=== PATIENT | female | born 1940 | race Caucasian/White ===

== ENCOUNTER 2016-08-19 11:16 | Observation (INO) ==
--- NOTE | 2016-08-19 14:16 | Emergency Department Note ---
Disposition Clinical Impression: Squamous cell carcinoma lung Qualifiers: Laterality: right Qualified Code(s): C34.91 - Malignant neoplasm of unspecified part of right bronchus or lung Pulmonary embolism Qualifiers: Pulmonary embolism type: other Chronicity: acute Acute cor pulmonale presence: without acute cor pulmonale Qualified Code(s): I26.99 - Other pulmonary embolism without acute cor pulmonale Disposition: Admitted As Inpatient Condition: Good Referrals: Frank Barboza MD [Primary Care Provider] - Forms: ED Satisfaction Letter Time of Disposition: 16:38 General Adult HPI - General Chief complaint: ED Shortness of Breath/Dyspnea Stated complaint: Lung Ca, ATUL Time Seen by Provider: 08/19/16 14:15 Source: patient, family Limitations: no limitations Nursing Notes Reviewed: Yes Vital Signs Reviewed: Yes - History of Present Illness HPI Narrative: Two-day history of right-sided rib pain and pain on inspiration. Patient insists is not her "chest." Does have a history of lung cancer on the right side with radiation and chemotherapy finished in December. Has had a two- month history of having areas on her CT scan shows possible pneumonia. She has been on steroids as well as antibiotics with no resolution of this area. She states using oxygen has eased her pain. Pain Scale: 8 - Related Data Home Medications Medication Instructions Recorded Confirmed Albuterol Sulfate [Proair Hfa] 2 puff PO Q4H PRN 10/03/15 08/07/16 Alendronate Sodium [Fosamax] 70 mg PO QWEEK MDD thursday10/03/15 08/07/16 Calcium Carbonate [Calcium] 500 mg PO DAILY 10/03/15 08/07/16 Cholecalciferol (Vitamin D3) 5,000 unit PO DAILY 10/03/15 08/07/16 [Vitamin D3] Cyanocobalamin (Vitamin B-12) 1,000 mcg SL DAILY 10/03/15 08/07/16 [Vitamin B-12] Fluticasone/Salmeterol [Advair 1 puff IH BID 10/03/15 08/07/16 250-50 Diskus] Gluc/[place]-MSM#1/C/Maciej/Paulie/Bor 1 tab PO DAILY 10/03/15 08/07/16 [Osteo Bi-Flex Caplet] Oxygen 4 l NS HS 10/03/15 08/07/16 Simvastatin [Zocor] 20 mg PO HS 10/03/15 08/07/16 Tiotropium [Spiriva] 1 puff IH DAILY 10/03/15 08/07/16 Torsemide [Demadex] 10 - 20 mg PO DAILY 10/03/15 08/07/16 MethylPREDNISolone [Medrol] 24 mg PO DAILY 08/07/16 08/07/16 Previous Rx's Medication Instructions Recorded HYDROcodone/Acet 5/325 mg [[place] 1 tab PO TID PRN #90 tab 05/15/16 5-325 mg] Pantoprazole Sodium [Protonix] 40 mg PO DAILY #30 granpkt. 08/05/16 Omeprazole [PriLOSEC] 40 mg PO DAILY #30 cap 08/07/16 Gabapentin [Neurontin] 300 mg PO HS #30 capsule 08/14/16 Zolpidem [Ambien] 10 mg PO HS #30 tablet 08/14/16 Allergies Allergy/AdvReac Type Severity Reaction Status Date / Time ampicillin Allergy Hives Verified 07/31/16 11:36 caffeine [From Anacin] Allergy Nausea Verified 07/31/16 11:36 diltiazem [From Cardizem] Allergy Hives Verified 07/31/16 11:36 acetaminophen [From Percocet] AdvReac Nausea Verified 08/19/16 11:37 aspirin AdvReac Nausea Verified 07/31/16 11:36 Oxycodone [From Percocet] AdvReac Nausea Verified 08/19/16 11:37 All systems ED: reviewed and negative except as stated. Constitutional: Denies: fever, chills ENT ED: Denies: throat pain, congestion Cardiovascular: Reports: chest pain (Right sided rib pain on deep inspiration.) Respiratory: Reports: cough (For several months.). Denies: dyspnea, sputum production Gastrointestinal: Denies: abdominal pain, nausea, vomiting, diarrhea Musculoskeletal: Denies: back pain, neck pain Integumentary: Denies: rash, abrasion Neurological: Denies: headache, weakness Past Medical History - Past Medical History Attestation: Yes The following information was validated with the patient. Medical history: Reports: arthritis, asthma, COPD, DVT, glaucoma, hyperlipidemia , hypertension Surgical history: Reports: appendectomy, hysterectomy, orthopedic, other Psychiatric history: Reports: no psych history - Social History Smoking Status: Former smoker Smokeless Tobacco Status: No Alcohol use: Reports: none Drug use: Reports: none Physical Exam - General Limitations: no limitations General appearance: alert, in no apparent distress - Head Head exam: atraumatic, normocephalic - Eye Eye exam: Present: normal appearance, PERRL, EOMI - ENT ENT exam: normal exam, normal oropharynx, mucous membranes moist - Neck Neck exam: Present: normal inspection, full ROM - Chest Chest inspection: Present: normal inspection, symmetric chest wall rise, tenderness (To palpation of right chest wall.) - Respiratory Respiratory exam: Present: normal lung sounds bilaterally. Absent: respiratory distress, wheezes - Cardiovascular Cardiovascular exam: Present: regular rate, normal rhythm, normal heart sounds - Abdominal Exam Abdominal exam: Present: soft, Non-Tender, normal bowel sounds - Extremities Exam Extremities exam: Present: normal inspection, full ROM, normal capillary refill. Absent: tenderness, pedal edema, calf tenderness - Back Exam Back exam: Present: normal inspection, full ROM. Absent: tenderness - Neurological Exam Neurological exam: Present: alert, oriented X3 - Psychiatric Psychiatric exam: Present: normal affect, normal mood - Skin Skin exam: Present: warm, dry, intact, normal color. Absent: rash, cyanosis, diaphoresis Course Course Narrative: Well-appearing female patient being sent from the cancer center for evaluation of her right-sided chest pain. Patient does have a history of right-sided lung cancer that she has received chemotherapy and radiation for. Her last dosing of this was in December. Patient has had a 2 or 3 month history of right- sided chest pain. She has been monitored several times by radiology for this. She has had several CT days of her chest over the past 2 months. She has been treated for pneumonia as well as been on prednisone. She has not had a outpatient pulmonary workup. Dr. Cuevas is sending her over here for admission and pulmonary workup. Patient is complaining of a right sided chest wall pain. She states it is worse on inspiration. It is reproducible to light palpation of her right rib area. She denies a cough or fever. Her lung sounds are clear on exam. Her heart tones are normal. Her abdomen is soft and nontender on palpation. Her bowel sounds are normal. I do not appreciate any swelling to any of her extremities. There are no cords in her calves. Patient does state that she has a history of PE several years ago in the 1973 timeframe. She denies being on any type of anticoagulation. I am concerned with her pleuritic chest pain as well as her history of cancer that she could possibly have a PE. We will CTA patient's chest while she is here and admit patient for pulmonary workup. Her chest x-ray shows a developing mass on her right hilum as well as a right-sided pleural effusion and increasing in the mass which was previously thought to be pneumonia in her right lower lobe. - Reevaluation(s) Reevaluation #1: Patient has a right lower lobe PE. We will start patient on Lovenox per Dr Reno's request and admit her to the hospital. Time: 16:38 - Consultations Consultation #1: I spoke with Dr. Cuevas on the phone. She advised that she sent the patient over for evaluation due to this recurrent pneumonia. She states the patient has complained of a cough and this right-sided chest pain for 2 months. She states that she did intermittently get better but then has since stated her pain is back. Requesting patient be admitted and a pulmonary consult be done. Consultation #2: I spoke Dr Reno on the phone is is requesting that we start the Pt on lovenox down here and admit her to the hospital. He states that they will attempt to change her anticoagulation on the floor. Time: 16:35 Consultation #3: Dr Camara accepted Pt in stable condition. I have made her aware of the request by the cancer doctor to have the patient on 1 mg/kg Lovenox every 12 hours. Time: 16:59 Vital Signs Temperature 97.5 F L 08/19/16 11:32 Pulse Rate 87 08/19/16 11:32 Respiratory Rate 18 08/19/16 11:32 Blood Pressure 131/80 08/19/16 11:32 O2 Sat by Pulse Oximetry 95 08/19/16 11:32 Temperature 97.5 F L 08/19/16 11:32 Pulse Rate 86 08/19/16 16:48 Respiratory Rate 18 08/19/16 16:48 Blood Pressure 125/70 08/19/16 16:48 O2 Sat by Pulse Oximetry 93 08/19/16 16:48 Oxygen Delivery Oxygen Delivery Room Air Attestation Statement - Attestation Attestation: I examined this patient and my medical decision-making was reviewed with the PLEATING SUPERVISOR/PA/Advanced Practice Nurse/Resident Physician. I agree with the documented findings, disposition and treatment plan as described except to the extent set forth below.
[2016-08-19] MEDS ORDERED: *HR* HYDROmorphone (PF) 1 MG/ML SYRINGE IVP ONE (15:14)
[2016-08-19] MEDS ORDERED: 0.9 % Sodium Chloride 500 ML IVC ONE (15:26)
[2016-08-19] MEDS ORDERED: *HR* Enoxaparin 30 MG/0.3 ML SYRINGE SQ ONE (16:39)
[2016-08-19] MEDS ORDERED: *HR* Enoxaparin 80 MG/0.8 ML SYRINGE SQ ONE (17:15)
[2016-08-19] MEDS ORDERED: Naloxone 0.4 MG/ML INJ IVP PRN (19:45)
[2016-08-19] MEDS ORDERED: *HR* HYDROcodone/Acet 5/325 mg TABLET PO PRN (20:40)
--- NOTE | 2016-08-19 20:40 | Internal Med History&Physical ---
Date of Encounter: 08/19/16 Time of Encounter: 20:39 Assessment and Plan (1) Pulmonary embolism Current visit: Yes Status: Acute with right side chest pain for 2 months prior to admisison.. Chest CTA with acute RLL pulmonary embolism. ED Discussed with Oncology and Lovenox started. Oncology consulted. Echo pending to assess for RV strain Qualifiers: Pulmonary embolism type: other Chronicity: acute Acute cor pulmonale presence: without acute cor pulmonale Qualified Code(s): I26.99 - Other pulmonary embolism without acute cor pulmonale (2) Squamous cell carcinoma lung Current visit: Yes Status: Chronic per hx. Last chemo 12/2015. Chest CTA with interval progression of mass resulting in bronchus obstruction. No respiratory distress on exam. Cont monitor. Oncology consulted Qualifiers: Laterality: right Qualified Code(s): C34.91 - Malignant neoplasm of unspecified part of right bronchus or lung (3) Thoracic aortic aneurysm Current visit: Yes Status: Acute per hx. Chest CTA with stable dilation of ascending thoracic aneurysm. No dissection. Can follow-up outpatient with continued surveillance Qualifiers: Presence of rupture: without rupture Qualified Code(s): I71.2 - Thoracic aortic aneurysm, without rupture (4) Diabetes Current visit: Yes Status: Acute per hx. Hold home oral hypoglycemics. SSI while inpatient. Monitor blood sugars and titrate PRN Qualifiers: Diabetes mellitus type: type 2 Diabetes mellitus complication status: without complication Diabetes mellitus intermediate insulin use: without long term care social worker use Qualified Code(s): E11.9 - Type 2 diabetes mellitus without complications (5) COPD (chronic obstructive pulmonary disease) Current visit: Yes Status: Acute per hx. Wears home O2. No evidence of exacerbation on exam. Cont home inhalers Qualifiers: COPD type: unspecified COPD Qualified Code(s): J44.9 - Chronic obstructive pulmonary disease, unspecified (6) Full code status Current visit: Yes Status: Acute Full code. Verified on admission (7) DVT prophylaxis Current visit: Yes Status: Acute Lovenox Internal Medicine - H&P: HPI Chief complaint: right side chest pain Plans for Post Hospital Care: Home History of present illness: Ms. Paul is a 76 year old female with PMH lung cancer, COPD and diabetes who presented to [facility] on 08/19/2016 from Oncology office for evaluation of right side chest pain. She was found to have a pulmonary embolism and was admitted for anticoagulation and Oncology evaluation. Information obtained from chart review patient patient report. Patient reports persistent right side chest pain for 2 months prior to admission. Pain is dull, rates 5/10, palpation and inspiration makes worse, pain medicine helps reliev a little. She also reports SOB but says that is chronic and at baseline. No ABD pain, no N/V/D Past Med Surg Social Fam HX - Past Medical History Medical history: arthritis, asthma, COPD, DVT, glaucoma, hyperlipidemia, hypertension Psychiatric history: no psych history - Past Surgical History Surgical History: appendectomy, hysterectomy, orthopedic, other - Social History Smoking Status: Former smoker Smokeless Tobacco Status: No Alcohol use: none Drug use: none - Additional Family History Additional family history: reviewed and non-contributory Internal Medicine - H&P: Meds Albuterol Sulfate [Proair Hfa] 2 puff PO Q4H PRN 10/03/15 [History] Alendronate Sodium [Fosamax] 70 mg PO QWEEK MDD thursday10/03/15 [History] Calcium Carbonate [Calcium] 500 mg PO DAILY 10/03/15 [History] Cholecalciferol (Vitamin D3) [Vitamin D3] 5,000 unit PO DAILY 10/03/15 [History] Cyanocobalamin (Vitamin B-12) [Vitamin B-12] 1,000 mcg SL DAILY 10/03/15 [ History] Fluticasone/Salmeterol [Advair 250-50 Diskus] 1 puff IH BID 10/03/15 [History] Gluc/[place]-MSM#1/C/Maciej/Paulie/Bor [Osteo Bi-Flex Caplet] 1 tab PO DAILY 10/03/15 [ History] Oxygen 4 l NS HS 10/03/15 [History] Simvastatin [Zocor] 20 mg PO HS 10/03/15 [History] Tiotropium [Spiriva] 1 puff IH DAILY 10/03/15 [History] Torsemide [Demadex] 10 - 20 mg PO DAILY 10/03/15 [History] HYDROcodone/Acet 5/325 mg [[place] 5-325 mg] 1 tab PO TID PRN #90 tab 05/15/16 [Rx ] Omeprazole [PriLOSEC] 40 mg PO DAILY #30 cap 08/07/16 [Rx] Gabapentin [Neurontin] 300 mg PO HS #30 capsule 08/14/16 [Rx] Zolpidem [Ambien] 10 mg PO HS #30 tablet 08/14/16 [Rx] Allergies ampicillin Allergy (Verified 07/31/16 11:36) Hives caffeine [From Anacin] Allergy (Verified 07/31/16 11:36) Nausea diltiazem [From Cardizem] Allergy (Verified 07/31/16 11:36) Hives acetaminophen [From Percocet] Adverse Reaction (Verified 08/19/16 11:37) Nausea aspirin Adverse Reaction (Verified 07/31/16 11:36) Nausea Oxycodone [From Percocet] Adverse Reaction (Verified 08/19/16 11:37) Nausea All Systems PM: A 10-system review of systems was performed and is negative for pertinent findings except as documented above in the HPI. - Constitutional Constitutional: no chills, no fever(s), no night sweats - EENT Eyes: no change in vision, no discharge, no pain, no photophobia Ears: no ear discharge, no ear pain, no tinnitus Nose, mouth and throat: no dysphagia, no nasal discharge, no neck pain, no sore throat - Cardiovascular Cardiovascular ROS IM: chest pain, dyspnea on exertion, no diaphoresis, no dyspnea, no lightheadedness, no palpitations, no syncope - Respiratory Respiratory: no cough, no dyspnea, no wheezing, no excessive phlegm production - Gastrointestinal Gastrointestinal: no abdominal pain, no diarrhea, no hematemesis, no hematochezia, no melena, no nausea, no vomiting - Genitourinary Genitourinary: no change in urinary stream, no dysuria, no flank pain, no hematuria - Musculoskeletal Musculoskeletal ROS IM: no numbness, no tingling - Integumentary Integumentary IM: no rash, no unusual bruising - Neurological Neurological ROS: no confusion, no convulsions, no focal weakness, no numbness, no tingling, no tremor(s) - Hematologic/Lymphatic Hematologic/Lymphatic: no easy bruising - Constitutional Vitals: Temp Pulse Resp BP Pulse Ox 97.7 F 89 16 146/76 100 08/19/16 18:39 08/19/16 18:39 08/19/16 18:39 08/19/16 18:39 08/19/16 18:56 General appearance: Present: A&O X 3, no acute distress - Head Head exam: Present: atraumatic, normocephalic - Eye Eye exam: Present: PERRL, conjuntiva pink, sclera anicteric Pupils: Present: PERRL - Neck Neck exam general surgery: Present: supple, trachea midline. Absent: lymphadenopathy - Respiratory Respiratory exam: Present: decreased breath sounds, CTAB. Absent: accessory muscle use, rales, rhonchi, wheezes Additional comments: CTA with diminished RLL - Cardiovascular Cardiovascular exam: Present: RRR, +S1, +S2. Absent: diastolic murmur, gallop, rubs, systolic murmur - GI/Abdominal GI/Abdominal exam: Present: normal bowel sounds, soft, no peritoneal signs. Absent: distended, tenderness - Extremities Exam Extremities exam: Present: warm, radial pulses palpable and symetrical. Absent : calf tenderness, cyanotic, pedal edema - Neurological Exam Neurological exam: Present: CN II-XII intact, oriented X3, no focal deficits. Absent: pronater drift, facial droop, speech deficit - Skin Skin exam: Present: dry, intact Internal Med - H&P Results - Labs CBC & Chem 7: 08/19/16 20:42 08/19/16 20:42
[2016-08-19] MEDS ORDERED: D5% in Water 1,000 ML IVC PRN (20:43)
[2016-08-19] MEDS ORDERED: Dextrose Gel 15 GM PO PRN ×2 (20:43)
[2016-08-19] MEDS ORDERED: *HR* Morphine 2 MG/ML SYRINGE IVP PRN ×2 (20:43→20:59)
[2016-08-19] MEDS ORDERED: *HR* Dextrose 50 % in Water (Syg) 50 ML SYRINGE IVP PRN (20:43)
[2016-08-19 20:53] LABS: Basophils % 0.1 %; Eosinophils % 0.1 %; Immature Granulocytes % 0.5 % (0-4); Lymphocytes # 1.2 K/mcL (0.6-4.6); Lymphocytes % 12.3 %; Mean Corpuscular HGB Conc 31.6 g/dL (31.6-35.5); Mean Corpuscular Hemoglobin 27.1 pg (28.0-33.3); Mean Corpuscular Volume 85.8 fL (83.0-100.0); Mean Platelet Volume 9.3 fL (9.4-12.4); Monocytes # 0.9 K/mcL (0.0-1.3); Monocytes % 9.5 %; Neutrophils # 7.4 K/mcL (1.6-8.9); Platelet Count 184 K/mcL (140-400); Red Blood Count 4.43 M/mcL (3.82-4.97); Red Cell Distribution Width 17.2 % (11.5-14.5); Segmented Neutrophils % 77.5 %
[2016-08-19] MEDS ORDERED: Insulin LISPRO 300 UNITS/3 ML VIAL SQ SCH (21:00)
[2016-08-19 21:05] LABS: BUN/Creatinine Ratio 27 (6-26); Blood Urea Nitrogen 25 mg/dL (7-20); Carbon Dioxide 29 mEq/L (19-29); Chloride 100 mEq/L (98-109); Glucose 118 mg/dL (70-99); Osmolality,Calculated 289 (280-300); Sodium 137 mEq/L (136-145); eGFR For African Americans > 60 (> 60); eGFR For Non-African Americans > 60 (> 60)
[2016-08-19] MEDS: Gabapentin 300 MG CAPSULE PO SCH (21:44)
[2016-08-19] MEDS ORDERED: Budesonide/Formoterol 80/4.5 MDI IH SCH (22:00)
[2016-08-20] MEDS: *HR* Enoxaparin 80 MG/0.8 ML SYRINGE SQ SCH ×2 (05:34→18:30)
[2016-08-20 07:29] LABS: BUN/Creatinine Ratio 30 (6-26); Blood Urea Nitrogen 26 mg/dL (7-20); Calcium 9.2 mg/dL (8.6-10.8); Carbon Dioxide 27 mEq/L (19-29); Chloride 102 mEq/L (98-109); Glucose 95 mg/dL (70-99); Osmolality,Calculated 291 (280-300); Potassium 3.9 mEq/L (3.5-4.5); Sodium 138 mEq/L (136-145); eGFR For African Americans > 60 (> 60); eGFR For Non-African Americans > 60 (> 60)
[2016-08-20] MEDS ORDERED: Insulin LISPRO 300 UNITS/3 ML VIAL SQ SCH (07:30)
[2016-08-20] MEDS ORDERED: Albuterol 2.5 MG/3 ML NEBULIZER IH PRN (07:47)
[2016-08-20] MEDS ORDERED: *HR* Morphine 2 MG/ML SYRINGE IVP PRN (07:49)
[2016-08-20 07:52] LABS: Basophils % 0.2 %; Eosinophils % 0.3 %; Hematocrit 37.2 % (35.3-44.9); Hemoglobin 11.6 g/dL (11.5-15.4); Immature Granulocytes % 0.9 % (0-4); Lymphocytes # 0.8 K/mcL (0.6-4.6); Lymphocytes % 13.2 %; Mean Corpuscular HGB Conc 31.2 g/dL (31.6-35.5); Mean Corpuscular Hemoglobin 27.1 pg (28.0-33.3); Mean Corpuscular Volume 86.9 fL (83.0-100.0); Monocytes # 0.7 K/mcL (0.0-1.3); Monocytes % 11.4 %; Neutrophils # 4.7 K/mcL (1.6-8.9); Platelet Count 175 K/mcL (140-400); Red Blood Count 4.28 M/mcL (3.82-4.97); Red Cell Distribution Width 17.2 % (11.5-14.5)
[2016-08-20] MEDS: *HR* HYDROcodone/Acet 5/325 mg TABLET PO PRN ×2 (10:03→21:55)
[2016-08-20] MEDS: Torsemide 20 MG TABLET PO SCH (10:03)
[2016-08-20] MEDS: Cyanocobalamin (B-12) 1,000 MCG TABLET PO SCH (10:05)
[2016-08-20] MEDS: Tiotropium 18 MCG inhalation IH SCH (10:50)
[2016-08-20] MEDS: Budesonide/Formoterol 80/4.5 MDI IH SCH ×2 (10:50→20:45)
--- NOTE | 2016-08-20 12:31 | ECHO - Doppler Report ---
Echocardiogram Name: Janet Paul Date of Study: 08/20/2016 Date: 1940 Ht: 62.0 in Medical Record#: [id number] Age: 76 Wt: 156.0 lb Gender: Female BSA: 1.72 Order #: [id number] Location: [facility] Room #: 2A12 Reading Physician: Hermelindo Lopez DO, MEKA VALENTIN Trimming Caser: Joshua Faith RN Ordering Physician: Becki Morton CNP Primary Physician: Frank Barboza MD Indications: RV Strain Impressions: LVEF 55-60%. Normal LV chamber size, wall thickness, and function. Mild left ventricular diastolic dysfunction. Normal right ventricular structure and function. Mild aortic regurgitation. No evidence of pulmonary hypertension. Left Ventricular Wall Motion: Rest Echo Findings All wall segments showed normal motion. Findings: Study Quality * Technically adequate exam. ECG Findings * Normal sinus rhythm. Left Ventricle * LVEF 55-60%. * Normal LV chamber size, wall thickness, and function. * Mild left ventricular diastolic dysfunction. Right Ventricle * Normal right ventricular structure and function. Left Atrium * Mildly dilated left atrium. Right Atrium * Normal right atrial size. Interatrial Septum * Interatrial septum not well evaluated. Aortic Valve * Trileaflet aortic valve. * No aortic stenosis. * Mild aortic regurgitation. Mitral Valve * Normal mitral valve structure and function. * No mitral regurgitation. * No mitral stenosis. Tricuspid Valve * Normal tricuspid valve structure and function. * Trace tricuspid regurgitation. * No evidence of pulmonary hypertension. Pulmonic Valve * Pulmonic valve is not well visualized. Aorta * Normally sized aortic root. Pericardium * The pericardium appears normal. IVC * Normal IVC dimensions and inspiratory collapse. Pulmonary Artery * Normal visualized portions of the main pulmonary artery. History Hypercholesteremia Years 60 Packs 1 Family History of CAD 10/04/2014 a Previous Echo was performed. Measurements: BP: 101/ 70 2D Normal Values RVIDd: 2.90 cm <2.7 cm IVSd: 1.10 cm 0.6 - 1.0 cm LVIDd: 4.20 cm 3.7 - 5.6 cm LVPWd: 1.10 cm 0.6 - 1.1 cm LVIDs: 2.70 cm 1.5 - 3.6 cm LA: 2.30 cm 2.0 - 4.0cm %FS: 35.70 cm >25 % LVOT Diam: 2.00 cm LA volume: 49 Mitral Valve Peak E:.81 m/sec Peak A:.95 m/sec E/A Ratio:0.8 Peak E' Lat Vargas:9.36 cm/s Peak E' Med Vargas:9.65 cm/s E/E' Lat Ratio:8.6 E/E' Med Ratio:8.4 Aortic Valve AI pressure Half-time: 394.00 msec Tricuspid Valve TV Regurg Peak Grad: 15.00mmHg TV Regurg Peak Vargas: 1.95m/sec Updated by Hermelindo Lopez DO, FACAdele, MEKA, LEONOR on 08/20/2016 12:27:11 PM electronically signed on 08/20/2016 12:27:47 PM with status of Final Wall Motion [place]: 1=Normal, 2=Hypokinesis, 3=Akinesis, 4=Dyskinesis, 5=Aneurysmal, 6=Hyperkinetic, X=Not Visualized (Blank)=Missing
--- NOTE | 2016-08-20 14:56 | Internal Med Progress Note ---
Date of Encounter: 08/20/16 Time of Encounter: 09:00 - Assessment and plan (1) Pulmonary embolism Current Visit: Yes Status: Acute Assessment and plan: On therapeuic dose of lovenox, echo ordered to assess right heart strain, echo report noted, unremarkable, will continue with lovenox and follow recommendations from hem onc for further management. D/W patient. Continue supplemental oxygen. Qualifiers: Pulmonary embolism type: other Chronicity: acute Acute cor pulmonale presence: without acute cor pulmonale Qualified Code(s): I26.99 - Other pulmonary embolism without acute cor pulmonale (2) Squamous cell carcinoma lung Current Visit: Yes Status: Chronic Assessment and plan: Will follow onc recommendations. Qualifiers: Laterality: right Qualified Code(s): C34.91 - Malignant neoplasm of unspecified part of right bronchus or lung (3) Diabetes Current Visit: Yes Status: Acute Qualifiers: Diabetes mellitus type: type 2 Diabetes mellitus complication status: without complication Diabetes mellitus extermination supervisor insulin use: without intermediate use Qualified Code(s): E11.9 - Type 2 diabetes mellitus without complications (4) COPD (chronic obstructive pulmonary disease) Current Visit: Yes Status: Acute Assessment and plan: Not in exacerbation. Qualifiers: COPD type: unspecified COPD Qualified Code(s): J44.9 - Chronic obstructive pulmonary disease, unspecified (5) DVT prophylaxis Current Visit: Yes Status: Acute - Subjective Interval history: seen and examiend, uses oxygen at home, no chest pain. - Constitutional Vitals: Temp Pulse Resp BP Pulse Ox 97.5 F L 76 16 101/63 98 08/20/16 11:01 08/20/16 11:01 08/20/16 11:01 08/20/16 11:01 08/20/16 11:01 General appearance: Present: cooperative, A&O X 3, no acute distress - Head Head exam: Present: atraumatic, normocephalic - Eye Eye exam: Present: PERRL, conjuntiva pink, sclera anicteric Pupils: Present: PERRL - Neck Neck exam general surgery: Present: supple, trachea midline. Absent: lymphadenopathy - Respiratory Respiratory exam: Present: CTAB. Absent: accessory muscle use, rales, rhonchi, wheezes - Cardiovascular Cardiovascular exam: Present: RRR, +S1, +S2. Absent: diastolic murmur, gallop, rubs, systolic murmur - GI/Abdominal GI/Abdominal exam: Present: normal bowel sounds, soft, no peritoneal signs. Absent: distended, tenderness - Extremities Exam Extremities exam: Present: warm, radial pulses palpable and symetrical. Absent : calf tenderness, cyanotic, pedal edema - Neurological Exam Neurological exam: Present: CN II-XII intact, oriented X3, no focal deficits. Absent: pronater drift, facial droop, speech deficit - Skin Skin exam: Present: dry, intact Internal Medicine: Result - Labs CBC & Chem 7: 08/20/16 07:12 08/20/16 07:12 Labs: Short CBC 08/19/16 08/20/16 Range/Units 20:42 07:12 WBC 9.5 6.4 (4.3-11.1) K/mcL Hgb 12.0 11.6 (11.5-15.4) g/dL Hct 38.0 37.2 (35.3-44.9) % Plt Count 184 175 (140-400) K/mcL Neutrophils # 7.4 4.7 (1.6-8.9) K/mcL BMP 08/19/16 08/20/16 20:42 07:12 Sodium 137 138 Potassium 4.0 3.9 Chloride 100 102 Carbon Dioxide 29 27 BUN 25 H 26 H Creatinine 0.91 0.86 Glucose 118 H 95 Calcium 9.0 9.2 Consult Discharge Plan - Plan Referrals: Frank Barboza MD [Primary Care Provider] - 08/26/16 3:00 pm ()
--- NOTE | 2016-08-20 15:09 | Oncology Inp Consult Note ---
Date of Encounter: 08/20/16 Time of Encounter: 18:13 Assessment and Plan (1) Acute pulmonary embolism Status: Acute Assessment and plan: Most likely secondary to lung cancer. If cancer is not in remission, she will require life long anticoagulation. Hence there is no utility to a hypercoaguable work up. Agree with lovenox 1mg/kg q 12hrly. As she might require thoracocentesis, will continue with lovenox until after her procedure (hold lovenox 12 hrs before procedure) after which she should be switched to Xarelto 15 mg po bid for 21 days and then 20 mg daily as per primary oncologist Dr. Berrios's recommendation. Bridging not required. Qualifiers: Qualified Code(s): I26.99 - Other pulmonary embolism without acute cor pulmonale (2) Pleural effusion Status: Acute Assessment and plan: CT chest showing a loculated pleural effusion suggestive of a malignant effusion. Please consult IR about a diagnositic tap of this fluid for cytology to r/o malignant involvement. The presence of malignant effusion will change her stage and hence management. Lovenox to be held 12 hour before the procedure , and anticoagulation should be resumed once hemostasis has been achieved. (3) Squamous cell carcinoma lung Status: Chronic Assessment and plan: Stage IIIA with CT scan suggestive of malignant pleural effusion, which will change her to stage IV. Thoracocentesis with fluid cytology recommended. Qualifiers: Laterality: right Qualified Code(s): C34.91 - Malignant neoplasm of unspecified part of right bronchus or lung - Data of Consult Patient: known to practice within the last 3 years Requesting Physician: Will Zamudio Primary Care Provider: Frank Barboza MD - Consult Narrative Reason for consult: Acute Pulmonary Embolus/Lung Cancer History of present illness: Ms Paul is a 76 year old female with history of hypertension, COPD, Stage III squamous cell carcinoma status post chemotherapy and radiation who presented to the emergency room on account of progressively worsening shortness of breath and right sided chest pain. CT scan of the chest obtained in the ER on 08/19/16 revealed acute right lower lobe pulmonary emboli. Also seen was interval progression of the right infrahilar 3.5 cm mass resulting in bronchus intermedius obstruction. Improvement in loculated right-sided malignant pleural effusion. She reports having bilateral PE following a hysterectomy in 1973. Ms. Paul was diagnosed with lung cancer after a CT scan of the chest obtained on 09/28/15 revealed a large right hilar mass measuring 3.4 x 3.3 cm, and a bronchoscopy obtained had revealed moderately differentiated squamous cell carcinoma. Final stage was T2N2 Stage III and she was treated with concurrent radiation and chemotherapy utilizing weekly carbo/taxol, with 2 cycles of consolidation carbo/taxol completed on 02/04/2016. Post therapy course was duplicated with radiation pneumonitis for which she received steroids. She currently denies any recent hospitalization or prolonged period of immobilization. Past Med Surg Social Fam HX - Past Medical History Medical history: arthritis, asthma, COPD, DVT, glaucoma, hyperlipidemia, hypertension Psychiatric history: no psych history - Past Surgical History Surgical History: appendectomy, hysterectomy, orthopedic, other - Social History Smoking Status: Former smoker Smokeless Tobacco Status: No Alcohol use: none Drug use: none Medications and Allergies Albuterol Sulfate [Proair Hfa] 2 puff PO Q4H PRN 10/03/15 [History] Alendronate Sodium [Fosamax] 70 mg PO QWEEK MDD thursday10/03/15 [History] Calcium Carbonate [Calcium] 500 mg PO DAILY 10/03/15 [History] Cholecalciferol (Vitamin D3) [Vitamin D3] 5,000 unit PO DAILY 10/03/15 [History] Cyanocobalamin (Vitamin B-12) [Vitamin B-12] 1,000 mcg SL DAILY 10/03/15 [ History] Fluticasone/Salmeterol [Advair 250-50 Diskus] 1 puff IH BID 10/03/15 [History] Gluc/Benito-MSM#1/C/Maciej/Paulie/Bor [Osteo Bi-Flex Caplet] 1 tab PO DAILY 10/03/15 [ History] Oxygen 4 l NS HS 10/03/15 [History] Simvastatin [Zocor] 20 mg PO HS 10/03/15 [History] Tiotropium [Spiriva] 1 puff IH DAILY 10/03/15 [History] Torsemide [Demadex] 10 - 20 mg PO DAILY 10/03/15 [History] HYDROcodone/Acet 5/325 mg [[place] 5-325 mg] 1 tab PO TID PRN #90 tab 05/15/16 [Rx ] Omeprazole [PriLOSEC] 40 mg PO DAILY #30 cap 08/07/16 [Rx] Gabapentin [Neurontin] 300 mg PO HS #30 capsule 08/14/16 [Rx] Zolpidem [Ambien] 10 mg PO HS #30 tablet 08/14/16 [Rx] Allergies ampicillin Allergy (Verified 07/31/16 11:36) Hives diltiazem [From Cardizem] Allergy (Verified 07/31/16 11:36) Hives aspirin Adverse Reaction (Verified 07/31/16 11:36) Nausea caffeine [From Anacin] Adverse Reaction (Verified 08/20/16 10:47) Nausea Oxycodone [From Percocet] Adverse Reaction (Verified 08/19/16 11:37) Nausea All systems: reviewed and no additional remarkable complaints except as stated Oncology - Exam - Constitutional Vitals: Temp Pulse Resp BP Pulse Ox 97.5 F L 76 16 101/63 98 08/20/16 11:01 08/20/16 11:01 08/20/16 11:01 08/20/16 11:01 08/20/16 11:01 General appearance: average body habitus, no febrile, no no acute distress, no severe distress - Head Head exam: Present: normal inspection, normocephalic - Eye Eye exam: Present: EOMI, normal appearance - Neck Neck exam: Present: normal inspection. Absent: lymphadenopathy, tenderness - Respiratory Additional comments: decreased air entry in the right lower lung zone. - Cardiovascular Cardiovascular exam: Present: RRR, +S1, +S2 - GI/Abdominal GI/Abdominal exam: Present: soft. Absent: rebound, rigid, tenderness - Extremities Exam Extremities exam: Present: normal inspection. Absent: pedal edema, tenderness - Neurological Exam Neurological exam: Present: alert, oriented X3 Oncology - Results - Labs Labs: Short CBC 08/19/16 08/20/16 Range/Units 20:42 07:12 WBC 9.5 6.4 (4.3-11.1) K/mcL Hgb 12.0 11.6 (11.5-15.4) g/dL Hct 38.0 37.2 (35.3-44.9) % Plt Count 184 175 (140-400) K/mcL Neutrophils # 7.4 4.7 (1.6-8.9) K/mcL BMP 08/19/16 08/20/16 20:42 07:12 Sodium 137 138 Potassium 4.0 3.9 Chloride 100 102 Carbon Dioxide 29 27 BUN 25 H 26 H Creatinine 0.91 0.86 Glucose 118 H 95 Calcium 9.0 9.2 Consult Discharge Plan - Plan Referrals: Frank Barboza MD [Primary Care Provider] - 08/26/16 3:00 pm ()
--- NOTE | 2016-08-20 15:10 | Electrocardiograph Report ---
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
[2016-08-20] MEDS: methylPREDNISolone 4 MG TABLET PO SCH (18:30)
--- NOTE | 2016-08-20 18:52 | Venous Imaging Report ---
LE Venous Duplex Patient Name:Janet Paul Order Number:[id number] Procedure Date:08/20/2016 Date:1940ge:76 yrs Gender:Female Location:[facility] Room #: 2A12 Germ Drier:Joshua Faith RN Referring MD:Becki Morton CNP dental coordinator:Frank Barboza MD Reading MD:Brayan Stone MD , FACS Primary Indications:New Acute Pulmonary Embolism Secondary Indications: Risk Factors Yes/No Smoker Previous Yes Anticoagulants Yes Previous Vascular Surgery No Hx of DVT Yes Recent Surgery No Trauma to Veins No Hx of Superficial Phlebitis No Jesus Filter No Impressions: Bilateral lower extremity: normal superficial and deep exam. Recommendations: Test completed on 08/20/2016 at 9:30:00 am. Findings Venous Duplex Results: Right: Venous imaging of the lower extremity reveals full patency and normal vessel compressibility of the right distal iliac, right common femoral, right superficial femoral, right popliteal, right posterior tibial, right peroneal, right great saphenous and right lesser saphenous. Doppler signals in the evaluated veins were normal. Left: Venous imaging of the lower extremity reveals full patency and normal vessel compressibility of the left distal iliac, left common femoral, left superficial femoral, left popliteal, left posterior tibial, left peroneal, left great saphenous and left lesser saphenous. Doppler signals in the evaluated veins were normal. Prior Study: No prior study available for comparison. Lower Extremity Venous Duplex Side Vein Compress Spontaneous Flow Augment Diameter (cm) Depth (cm) Right Distal Iliac Normal Yes Phasic Yes Right Common Femoral Normal Yes Phasic Yes Right Superficial Femoral Normal Yes Phasic Yes Right Popliteal Normal Yes Phasic Yes Right Posterior Tibial Normal Yes Phasic Yes Right Peroneal Normal Yes Phasic Yes Right Great Saphenous Normal Yes Phasic Yes Right Lesser Saphenous Normal Yes Phasic Yes Left Distal Iliac Normal Yes Phasic Yes Left Common Femoral Normal Yes Phasic Yes Left Superficial Femoral Normal Yes Phasic Yes Left Popliteal Normal Yes Phasic Yes Left Posterior Tibial Normal Yes Phasic Yes Left Peroneal Normal Yes Phasic Yes Left Great Saphenous Normal Yes Phasic Yes Left Lesser Saphenous Normal Yes Phasic Yes Updated by Brayan Stone MD, FACS on 08/20/2016 6:47:04 PM Brayan Stone MD electronically signed on 08/20/2016 6:47:36 PM with status of Final
[2016-08-20] MEDS: Gabapentin 300 MG CAPSULE PO SCH (21:32)
[2016-08-21] MEDS: *HR* Enoxaparin 80 MG/0.8 ML SYRINGE SQ SCH (05:23)
[2016-08-21 05:44] LABS: Basophils % 0.1 %; Hematocrit 37.5 % (35.3-44.9); Hemoglobin 11.9 g/dL (11.5-15.4); INR 1.1; Immature Granulocytes % 0.7 % (0-4); Lymphocytes # 0.5 K/mcL (0.6-4.6); Lymphocytes % 7.1 %; Mean Corpuscular HGB Conc 31.7 g/dL (31.6-35.5); Mean Corpuscular Hemoglobin 27.2 pg (28.0-33.3); Mean Corpuscular Volume 85.6 fL (83.0-100.0); Mean Platelet Volume 9.9 fL (9.4-12.4); Monocytes # 0.3 K/mcL (0.0-1.3); Monocytes % 3.5 %; Neutrophils # 6.2 K/mcL (1.6-8.9); Platelet Count 169 K/mcL (140-400); Prothrombin Time 11.7 Seconds (9.4-12.1); Red Blood Count 4.38 M/mcL (3.82-4.97); Red Cell Distribution Width 16.8 % (11.5-14.5); Segmented Neutrophils % 88.6 %
[2016-08-21 06:05] LABS: BUN/Creatinine Ratio 34 (6-26); Blood Urea Nitrogen 29 mg/dL (7-20); Calcium 9.2 mg/dL (8.6-10.8); Carbon Dioxide 28 mEq/L (19-29); Chloride 102 mEq/L (98-109); Glucose 145 mg/dL (70-99); Osmolality,Calculated 302 (280-300); Potassium 4.3 mEq/L (3.5-4.5); Sodium 142 mEq/L (136-145); eGFR For African Americans > 60 (> 60); eGFR For Non-African Americans > 60 (> 60)
[2016-08-21] MEDS: Tiotropium 18 MCG inhalation IH SCH (08:12)
[2016-08-21] MEDS: Budesonide/Formoterol 80/4.5 MDI IH SCH ×2 (08:12→20:15)
--- NOTE | 2016-08-21 09:36 | IR Procedure Note ---
Date of procedure: 08/21/16 Consent Obtained: Verbal consent, Written consent Timeout: Correct patient and procedure verified, Correct site verified, Time out performed, Skin prep completed Local anesthetic: Lidocaine 1% Indications: Right pleural effusion Procedure Performed: Right thoracentesis Site/Technique: Right thoracentesis performed Results/Findings: Small pleural effusion Estimated blood loss (cc): 0 Complications: None; Tolerated procedure well Post Procedure Treatment Plan: Post procedure CXR
[2016-08-21] MEDS: methylPREDNISolone 4 MG TABLET PO SCH (10:26)
[2016-08-21] MEDS: Torsemide 20 MG TABLET PO SCH (10:26)
[2016-08-21] MEDS: Cyanocobalamin (B-12) 1,000 MCG TABLET PO SCH (10:27)
[2016-08-21] MEDS: *HR* HYDROcodone/Acet 5/325 mg TABLET PO PRN ×2 (10:59→22:40)
--- NOTE | 2016-08-21 12:54 | Internal Med Progress Note ---
Date of Encounter: 08/21/16 Time of Encounter: 12:52 - Assessment and plan (1) Pulmonary embolism Current Visit: Yes Status: Acute Assessment and plan: was On therapeuic dose of lovenox which was held this am in anticipation of thoracentesis, echo ordered to assess right heart strain, echo report noted, unremarkable, will continue with xarelto today and follow recommendations from hem onc for further management. Possible d/c tomorrow in am. clinical services consultant t check if xarelto approved by her insurance. D/W patient. Continue supplemental oxygen. Qualifiers: Pulmonary embolism type: other Chronicity: acute Acute cor pulmonale presence: without acute cor pulmonale Qualified Code(s): I26.99 - Other pulmonary embolism without acute cor pulmonale (2) Squamous cell carcinoma lung Current Visit: Yes Status: Chronic Assessment and plan: Will follow onc recommendations. Possible malignant etiology of effusion which could change management director. Follow results with oncology. Qualifiers: Laterality: right Qualified Code(s): C34.91 - Malignant neoplasm of unspecified part of right bronchus or lung (3) Diabetes Current Visit: Yes Status: Acute Qualifiers: Diabetes mellitus type: type 2 Diabetes mellitus complication status: without complication Diabetes mellitus care home insulin use: without medical terminologist use Qualified Code(s): E11.9 - Type 2 diabetes mellitus without complications (4) COPD (chronic obstructive pulmonary disease) Current Visit: Yes Status: Acute Assessment and plan: Not in exacerbation. Qualifiers: COPD type: unspecified COPD Qualified Code(s): J44.9 - Chronic obstructive pulmonary disease, unspecified (5) DVT prophylaxis Current Visit: Yes Status: Acute - Subjective Interval history: seen and examiend, uses oxygen at home, no chest pain. had thoracentesis earlier. - Constitutional Vitals: Temp Pulse Resp BP Pulse Ox 97.4 F L 82 16 96/64 100 08/21/16 07:19 08/21/16 07:19 08/21/16 07:19 08/21/16 07:19 08/21/16 07:52 General appearance: Present: cooperative, A&O X 3, no acute distress - Head Head exam: Present: atraumatic, normocephalic - Eye Eye exam: Present: PERRL, conjuntiva pink, sclera anicteric Pupils: Present: PERRL - Neck Neck exam general surgery: Present: supple, trachea midline. Absent: lymphadenopathy - Respiratory Respiratory exam: Present: decreased breath sounds. Absent: accessory muscle use, rales, rhonchi, wheezes - Cardiovascular Cardiovascular exam: Present: RRR, +S1, +S2. Absent: diastolic murmur, gallop, rubs, systolic murmur - GI/Abdominal GI/Abdominal exam: Present: normal bowel sounds, soft, no peritoneal signs. Absent: distended, tenderness - Extremities Exam Extremities exam: Present: warm, radial pulses palpable and symetrical. Absent : calf tenderness, cyanotic, pedal edema - Neurological Exam Neurological exam: Present: CN II-XII intact, oriented X3, no focal deficits. Absent: pronater drift, facial droop, speech deficit - Skin Skin exam: Present: dry, intact Internal Medicine: Result - Labs CBC & Chem 7: 08/21/16 03:54 08/21/16 03:54 Labs: Short CBC 08/21/16 Range/Units 03:54 WBC 7.1 (4.3-11.1) K/mcL Hgb 11.9 (11.5-15.4) g/dL Hct 37.5 (35.3-44.9) % Plt Count 169 (140-400) K/mcL Neutrophils # 6.2 (1.6-8.9) K/mcL BMP 08/21/16 03:54 Sodium 142 Potassium 4.3 Chloride 102 Carbon Dioxide 28 BUN 29 H Creatinine 0.86 Glucose 145 H Calcium 9.2 - ABG Interpretation ABG results: PT/INR, D-dimer PT 11.7 Seconds (9.4-12.1) 08/21/16 03:54 - Impressions Impressions Thoracentesis Ultrasound 08/21/16 00:00 IMPRESSION: Successful ultrasound guided thoracentesis. D/ / Juan José Richmond MD / Juan José Richmond MD Interpreting Provider: Juan José Richomnd MD Chest X-Ray 08/21/16 09:35 IMPRESSION: Decreased size of right pleural effusion. No pneumothorax. D/ / 08/21/2016 10:21:06 Max Hwang MD / ashvin Interpreting Provider: Max Hwang MD Consult Discharge Plan - Plan Referrals: Frank Barboza MD [Primary Care Provider] - 08/26/16 3:00 pm ()
--- NOTE | 2016-08-21 16:03 | Oncology Inp Progress Note ---
Date of Encounter: 08/21/16 Time of Encounter: 17:43 (1) Acute pulmonary embolism Current Visit: Yes Status: Acute Assessment and plan: Most likely secondary to lung cancer. If cancer is not in remission, she will require life long anticoagulation. Hence there is no utility to a hypercoaguable work up. She was started on lovenox 1mg/kg q 12hrly, and if no other surgical procedure is planned, can be switched to Xarelto 15 mg po bid for 21 days and then 20 mg daily as per primary oncologist Dr. Berrios's recommendation. Bridging not required. Patient is clinically improved. She can be discharged home, from an oncologic standpoint. Qualifiers: Qualified Code(s): I26.99 - Other pulmonary embolism without acute cor pulmonale (2) Pleural effusion Current Visit: Yes Status: Acute Assessment and plan: CT chest showing a loculated pleural effusion suggestive of a malignant effusion. Diagnositic thoracocentesis for cytology to r/o malignant involvement was obtained today 08/21/2016. The presence of malignant effusion will change her stage and hence management. (3) Squamous cell carcinoma lung Current Visit: Yes Status: Chronic Assessment and plan: Stage IIIA with CT scan suggestive of malignant pleural effusion, which will change her to stage IV. Thoracocentesis with fluid cytology has been obtained and is pending. Qualifiers: Laterality: right Qualified Code(s): C34.91 - Malignant neoplasm of unspecified part of right bronchus or lung Oncology: Subj Interval history: Patient reports she is doing much better. She underwent thoracocentesis today which was well-tolerated. - Constitutional Vitals: Vital Signs Temp Pulse Resp BP Pulse Ox 08/21/16 13:19 97.4 F L 82 16 118/79 100 08/21/16 07:52 100 08/21/16 07:19 97.4 F L 82 16 96/64 100 08/21/16 05:24 97.8 F 84 18 97/62 94 08/20/16 22:03 90 08/20/16 20:47 16 95 08/20/16 19:49 98.2 F 76 16 104/66 98 Intake and Output 08/21/16 08/21/16 08/21/16 07:59 15:59 23:59 Intake Total 0 / 0 120 / 120 Output Total 0 / 0 Balance 0 / 0 120 / 120 Intake: Oral 0 / 0 120 / 120 Output: Urine 0 / 0 Other: Meal Lunch Percent of Meal Consumed 100% Weight 71.2 kg Patient Weight 08/21/16 23:59 Weight 71.2 kg General appearance: average body habitus, no no acute distress, no severe distress - Head Head exam: Present: normal inspection, normocephalic - Eye Eye exam: Present: EOMI, normal appearance - ENT ENT exam: Present: normal exam, normal external ear exam - Neck Neck exam: Present: normal inspection. Absent: lymphadenopathy - Respiratory Respiratory exam: Present: CTAB - Cardiovascular Cardiovascular exam: Present: RRR, +S1 - Extremities Exam Extremities exam: Absent: pedal edema Oncology: Obj Data - Labs CBC & Chem 7: 08/21/16 03:54 08/21/16 03:54 Labs: Laboratory Results - last 24 hr 08/21/16 08/21/16 08/21/16 03:54 03:54 03:54 WBC 7.1 RBC 4.38 Hgb 11.9 Hct 37.5 MCV 85.6 MCH 27.2 L MCHC 31.7 RDW 16.8 H Plt Count 169 MPV 9.9 Immature Gran % 0.7 Seg Neutrophils % 88.6 Lymphocytes % 7.1 Monocytes % 3.5 Eosinophils % 0.0 Basophils % 0.1 Neutrophils # 6.2 Lymphocytes # 0.5 L Monocytes # 0.3 Eosinophils # 0.0 Basophils # 0.0 PT 11.7 INR 1.1 Sodium 142 Potassium 4.3 Chloride 102 Carbon Dioxide 28 BUN 29 H Creatinine 0.86 Est GFR ( Amer) > 60 Est GFR (Non-Af Amer) > 60 BUN/Creatinine Ratio 34 H Glucose 145 H Calculated Osmolality 302 H Calcium 9.2 - Impressions Impressions Thoracentesis Ultrasound 08/21/16 00:00 IMPRESSION: Successful ultrasound guided thoracentesis. D/ / Juan José Richmond MD / Juan José Richmond MD Interpreting Provider: Juan José Richmond MD Chest X-Ray 08/21/16 09:35 IMPRESSION: Decreased size of right pleural effusion. No pneumothorax. D/ / 08/21/2016 10:21:06 Max Hwang MD / [email or web address] Interpreting Provider: Max Hwang MD - ABG Interpretation ABG results: PT/INR, D-dimer PT 11.7 Seconds (9.4-12.1) 08/21/16 03:54 Consult Discharge Plan - Plan Referrals: Frank Barboza MD [Primary Care Provider] - 08/26/16 3:00 pm ()
[2016-08-21] MEDS: Gabapentin 300 MG CAPSULE PO SCH (20:53)
[2016-08-21] MEDS: *HR* Rivaroxaban 15 MG TABLET PO SCH (20:54)
[2016-08-22 05:14] LABS: Basophils % 0.1 %; Eosinophils % 0.3 %; Hematocrit 35.7 % (35.3-44.9); Hemoglobin 11.4 g/dL (11.5-15.4); Immature Granulocytes % 0.5 % (0-4); Lymphocytes # 1.1 K/mcL (0.6-4.6); Lymphocytes % 11.6 %; Mean Corpuscular HGB Conc 31.9 g/dL (31.6-35.5); Mean Corpuscular Hemoglobin 27.5 pg (28.0-33.3); Monocytes # 0.9 K/mcL (0.0-1.3); Monocytes % 9.8 %; Neutrophils # 7.2 K/mcL (1.6-8.9); Platelet Count 167 K/mcL (140-400); Red Blood Count 4.15 M/mcL (3.82-4.97); Red Cell Distribution Width 17.2 % (11.5-14.5); Segmented Neutrophils % 77.7 %
[2016-08-22 05:23] LABS: BUN/Creatinine Ratio 27 (6-26); Blood Urea Nitrogen 25 mg/dL (7-20); Calcium 9.5 mg/dL (8.6-10.8); Carbon Dioxide 30 mEq/L (19-29); Chloride 101 mEq/L (98-109); Glucose 128 mg/dL (70-99); Osmolality,Calculated 296 (280-300); Potassium 4.5 mEq/L (3.5-4.5); Sodium 140 mEq/L (136-145); eGFR For African Americans > 60 (> 60); eGFR For Non-African Americans 60 (> 60)
[2016-08-22 07:54] VITALS: BP 107/72
[2016-08-22] MEDS: Tiotropium 18 MCG inhalation IH SCH (08:10)
[2016-08-22] MEDS: Budesonide/Formoterol 80/4.5 MDI IH SCH (08:10)
[2016-08-22] MEDS: Torsemide 20 MG TABLET PO SCH (08:32)
[2016-08-22] MEDS: Cyanocobalamin (B-12) 1,000 MCG TABLET PO SCH (08:32)
[2016-08-22] MEDS: *HR* Rivaroxaban 15 MG TABLET PO SCH (08:32)
[2016-08-22] MEDS: methylPREDNISolone 4 MG TABLET PO SCH (08:32)
[2016-08-22] MEDS ORDERED: *HR* HYDROcodone/Acet 10/325 mg TABLET PO PRN (10:12)
--- NOTE | 2016-08-22 10:12 | Discharge Summary ---
Date of Encounter: 08/22/16 Time of Encounter: 10:09 - Discharge Diagnosis (1) Pulmonary embolism Priority: Primary Status: Acute Qualifiers: Pulmonary embolism type: other Chronicity: acute Acute cor pulmonale presence: without acute cor pulmonale Qualified Code(s): I26.99 - Other pulmonary embolism without acute cor pulmonale (2) Squamous cell carcinoma lung Priority: Secondary Status: Chronic Qualifiers: Laterality: right Qualified Code(s): C34.91 - Malignant neoplasm of unspecified part of right bronchus or lung (3) Diabetes Priority: Secondary Status: Acute Qualifiers: Diabetes mellitus type: type 2 Diabetes mellitus complication status: without complication Diabetes mellitus halfway insulin use: without halfway use Qualified Code(s): E11.9 - Type 2 diabetes mellitus without complications (4) COPD (chronic obstructive pulmonary disease) Priority: Secondary Status: Acute Qualifiers: COPD type: unspecified COPD Qualified Code(s): J44.9 - Chronic obstructive pulmonary disease, unspecified (5) DVT prophylaxis Priority: Secondary Status: Acute - Discharge Medications Prescriptions: Rivaroxaban [Xarelto] 15 mg PO BID 21 Days Home Medications: Albuterol Sulfate [Proair Hfa] 2 puff PO Q4H PRN 10/03/15 [History] Alendronate Sodium [Fosamax] 70 mg PO QWEEK MDD thursday10/03/15 [History] Calcium Carbonate [Calcium] 500 mg PO DAILY 10/03/15 [History] Cholecalciferol (Vitamin D3) [Vitamin D3] 5,000 unit PO DAILY 10/03/15 [History] Cyanocobalamin (Vitamin B-12) [Vitamin B-12] 1,000 mcg SL DAILY 10/03/15 [ History] Fluticasone/Salmeterol [Advair 250-50 Diskus] 1 puff IH BID 10/03/15 [History] Gluc/[place]-MSM#1/C/Maciej/Paulie/Bor [Osteo Bi-Flex Caplet] 1 tab PO DAILY 10/03/15 [ History] Oxygen 4 l NS HS 10/03/15 [History] Simvastatin [Zocor] 20 mg PO HS 10/03/15 [History] Tiotropium [Spiriva] 1 puff IH DAILY 10/03/15 [History] Torsemide [Demadex] 10 - 20 mg PO DAILY 10/03/15 [History] HYDROcodone/Acet 5/325 mg [[place] 5-325 mg] 1 tab PO TID PRN #90 tab 05/15/16 [Rx ] Omeprazole [PriLOSEC] 40 mg PO DAILY #30 cap 08/07/16 [Rx] Gabapentin [Neurontin] 300 mg PO HS #30 capsule 08/14/16 [Rx] Zolpidem [Ambien] 10 mg PO HS #30 tablet 08/14/16 [Rx] Rivaroxaban [Xarelto] 15 mg PO BID 21 Days 08/22/16 [Rx] Allergies/Adverse Reactions: Allergies ampicillin Allergy (Verified 07/31/16 11:36) Hives diltiazem [From Cardizem] Allergy (Verified 07/31/16 11:36) Hives aspirin Adverse Reaction (Verified 07/31/16 11:36) Nausea caffeine [From Anacin] Adverse Reaction (Verified 08/20/16 10:47) Nausea Oxycodone [From Percocet] Adverse Reaction (Verified 08/19/16 11:37) Nausea Procedures/tests Complete & Pending: Procedures Performed prior 72 hours Category Date Time Status IR thoracentesis ultrasound [IR] Routine IR 08/21/16 Completed EV echocardiogram Routine Y 08/20/16 19:47 Completed EV venous imaging LE BI Routine Y 08/20/16 21:22 Completed Date of admission: 08/19/16 17:13 Primary care physician: Frank Barboza MD Consults: 08/20/16 20:08 Consult to Interventional Radiology [CONS] Routine Consulting Provider: Radiology Interventional Cols Reason for Consult: diagnostic thoracentesis 08/21/16 Call Completed: Yes Discharging clinician: Will Zamudio Anticipated date of discharge: 08/22/16 - Patient Status Disposition: Home, Self-Care Condition: Good Functional capacity at discharge: independent ambulation Overall status at discharge: patient is back to baseline - Discharge Instructions Follow Up With: Frank Barboza MD [Primary Care Provider] - 08/26/16 3:00 pm () - Diet and Activity Activity: as per physical therapy Interval History: Ms. Paul is a 76 year old female with PMH lung cancer, COPD and diabetes who presented to [facility] on 08/19/2016 from Oncology office for evaluation of right side chest pain. She was found to have a pulmonary embolism and was admitted for anticoagulation and Oncology evaluation. Information obtained from chart review patient patient report. Patient reports persistent right side chest pain for 2 months prior to admission. Pain is dull, rates 5/10, palpation and inspiration makes worse, pain medicine helps reliev a little. She also reports SOB but says that is chronic and at baseline. No ABD pain, no N/V/D Hospital course: Ms. Paul is a 76 year old female admitted due to PE in setting of lung cancer. Plural efffusion noted. was started On therapeuic dose of lovenox which was held yesterday in am in anticipation of thoracentesis, echo ordered to assess right heart strain, echo report noted, unremarkable. thoracentesis done, no complications, patient to follow up with ocology for biopsy results, if effusion is due to malignancy it will change the management and staging of her malignancy. Patient will be discharged home today on po xarelto, presciption given. D/W patient. - Time Spent with Patient Total time spent providing and/or coordinating discharge services: - Constitutional Vitals: Temp Pulse Resp BP Pulse Ox 98.1 F 75 18 107/72 95 08/22/16 07:51 08/22/16 07:51 08/22/16 08:11 08/22/16 07:51 08/22/16 08:36 General appearance: Present: cooperative, A&O X 3, no acute distress - Head Head exam: Present: atraumatic, normocephalic - Eye Eye exam: Present: PERRL, conjuntiva pink, sclera anicteric Pupils: Present: PERRL - Neck Neck exam general surgery: Present: supple, trachea midline. Absent: lymphadenopathy - Respiratory Respiratory exam: Present: CTAB. Absent: accessory muscle use, rales, rhonchi, wheezes - Cardiovascular Cardiovascular exam: Present: RRR, +S1, +S2. Absent: diastolic murmur, gallop, rubs, systolic murmur - GI/Abdominal GI/Abdominal exam: Present: normal bowel sounds, soft, no peritoneal signs. Absent: distended, tenderness - Extremities Exam Extremities exam: Present: warm, radial pulses palpable and symetrical. Absent : calf tenderness, cyanotic, pedal edema - Neurological Exam Neurological exam: Present: CN II-XII intact, oriented X3, no focal deficits. Absent: pronater drift, facial droop, speech deficit - Skin Skin exam: Present: dry, intact
[2016-09-12] MEDS ORDERED: *HR* Rivaroxaban 10 MG TABLET PO SCH (17:00)
== END 2016-08-22 11:31 | disposition home or self-care (01) ==
LOC: 2ANU 11:16 → EMEROO 11:16 → 2ANU 18:12
PROVIDERS: ADMIT Internal Medicine; ATTEND Internal Medicine

== ENCOUNTER 2016-09-02 09:13 | Inpatient (IN) ==
[2016-09-02] MEDS ORDERED: *HR* HYDROmorphone (PF) 1 MG/ML SYRINGE IVP ONE ×2 (09:24→10:54)
[2016-09-02] MEDS ORDERED: Ondansetron 4 MG/2 ML VIAL IVP ONE (09:24)
[2016-09-02 10:12] LABS: Basophils % 0.1 %; Eosinophils % 0.2 %; Hematocrit 35.6 % (35.3-44.9); Hemoglobin 11.7 g/dL (11.5-15.4); Immature Granulocytes % 0.4 % (0-4); Lymphocytes # 0.8 K/mcL (0.6-4.6); Lymphocytes % 7.6 %; Mean Corpuscular HGB Conc 32.9 g/dL (31.6-35.5); Mean Corpuscular Hemoglobin 28.1 pg (28.0-33.3); Mean Corpuscular Volume 85.6 fL (83.0-100.0); Mean Platelet Volume 9.2 fL (9.4-12.4); Monocytes % 9.8 %; Neutrophils # 8.2 K/mcL (1.6-8.9); Platelet Count 213 K/mcL (140-400); Red Blood Count 4.16 M/mcL (3.82-4.97); Red Cell Distribution Width 16.6 % (11.5-14.5); Segmented Neutrophils % 81.9 %
[2016-09-02 10:17] LABS: INR 3.7; Prothrombin Time 41.8 Seconds (9.4-12.1)
[2016-09-02 10:28] LABS: Alanine Aminotransferase 33 Units/L (0-55); Albumin 2.9 g/dL (3.5-5.0); Albumin/Globulin Ratio 0.7 (1.1-2.2); Alkaline Phosphatase 96 Units/L (38-126); Aspartate Amino Transferase 26 Units/L (5-34); BUN/Creatinine Ratio 22 (6-26); Bilirubin,Total 1.1 mg/dL (0.2-1.2); Blood Urea Nitrogen 22 mg/dL (7-20); Calcium 9.5 mg/dL (8.6-10.8); Carbon Dioxide 30 mEq/L (19-29); Chloride 97 mEq/L (98-109); Creatine Kinase 178 Units/L (29-168); Globulin 4.2 g/dL (2.4-3.5); Glucose 121 mg/dL (70-99); Osmolality,Calculated 291 (280-300); Potassium 3.5 mEq/L (3.5-4.5); Sodium 138 mEq/L (136-145); Total Protein 7.1 g/dL (6.0-8.3); eGFR For African Americans > 60 (> 60); eGFR For Non-African Americans 54 (> 60)
[2016-09-02 10:33] LABS: Activated Partial Thrombo Time 109.8 Seconds (26.0-36.0)
--- NOTE | 2016-09-02 12:05 | Emergency Department Note ---
Disposition Clinical Impression: Dyspnea COPD (chronic obstructive pulmonary disease) Qualifiers: COPD type: unspecified COPD Qualified Code(s): J44.9 - Chronic obstructive pulmonary disease, unspecified Disposition: Admitted As Inpatient SOB HPI - General Chief Complaint: ED Shortness of Breath/Dyspnea Stated Complaint: Coughing up blood, chest pain Time Seen by Provider: 09/02/16 09:20 Source: patient, family Limitations: no limitations Nursing Notes Reviewed: Yes Vital Signs Reviewed: Yes - History of Present Illness Patient presents complaint of right-sided rib pain. Patient was diagnosed early this month with a pulmonary embolus was admitted. Since then, patient states the pain is progressively getting worse and she is having shortness of breath. Patient denies chest pain. Patient denies fevers or chills. Patient denies dizziness. Patient is complains of pain and weakness. - Related Data Home Medications Medication Instructions Recorded Confirmed Albuterol Sulfate [Proair Hfa] 2 puff PO Q4H PRN 10/03/15 09/02/16 Alendronate Sodium [Fosamax] 70 mg PO QWEEK MDD thursday10/03/15 09/02/16 Calcium Carbonate [Calcium] 500 mg PO DAILY 10/03/15 09/02/16 Cholecalciferol (Vitamin D3) 5,000 unit PO DAILY 10/03/15 09/02/16 [Vitamin D3] Cyanocobalamin (Vitamin B-12) 1,000 mcg SL DAILY 10/03/15 09/02/16 [Vitamin B-12] Fluticasone/Salmeterol [Advair 1 puff IH BID 10/03/15 09/02/16 250-50 Diskus] Gluc/Benito-MSM#1/C/Maciej/Paulie/Bor 1 tab PO DAILY 10/03/15 09/02/16 [Osteo Bi-Flex Caplet] Oxygen 4 l NS HS 10/03/15 09/02/16 Simvastatin [Zocor] 20 mg PO HS 10/03/15 09/02/16 Tiotropium [Spiriva] 1 puff IH DAILY 10/03/15 09/02/16 Torsemide [Demadex] 10 - 20 mg PO DAILY 10/03/15 09/02/16 Pantoprazole Sodium [Protonix] 40 mg PO DAILY 09/02/16 09/02/16 Previous Rx's Medication Instructions Recorded Omeprazole [PriLOSEC] 40 mg PO DAILY #30 cap 08/07/16 Gabapentin [Neurontin] 300 mg PO HS #30 capsule 08/14/16 Zolpidem [Ambien] 10 mg PO HS #30 tablet 08/14/16 Rivaroxaban [Xarelto] 15 mg PO BID 21 Days 08/22/16 GuaiFENesin/Codeine [Robitussin 5 ml PO Q6HR PRN #250 liquid 08/29/16 w/Codeine] HYDROcodone/Acet 7.5/325 mg [[place] 1 tab PO Q6H #120 tablet 08/29/16 7.5-325 mg] Rivaroxaban [Xarelto] 20 mg PO DAILY #30 tablet 08/29/16 Allergies Allergy/AdvReac Type Severity Reaction Status Date / Time ampicillin Allergy Hives Verified 07/31/16 11:36 diltiazem [From Cardizem] Allergy Hives Verified 07/31/16 11:36 aspirin AdvReac Nausea Verified 07/31/16 11:36 caffeine [From Anacin] AdvReac Nausea Verified 08/20/16 10:47 Oxycodone [From Percocet] AdvReac Nausea Verified 08/19/16 11:37 All systems ED: reviewed and negative except as stated. Past Medical History - Past Medical History Source: patient Medical history: Reports: arthritis, asthma, cancer, COPD, DVT, glaucoma, hyperlipidemia, hypertension Surgical history: Reports: appendectomy, hysterectomy, orthopedic, other Psychiatric history: Reports: no psych history - Social History Smoking Status: Former smoker Smokeless Tobacco Status: No Alcohol use: Reports: none Drug use: Reports: none Physical Exam - General Limitations: no limitations General appearance: alert - Head Head exam: atraumatic, normocephalic, normal inspection - Eye Eye exam: Present: normal appearance, PERRL, EOMI - ENT ENT exam: normal exam, normal oropharynx, mucous membranes moist - Neck Neck exam: Present: normal inspection, full ROM, trachea midline - Chest Chest inspection: Present: normal inspection, symmetric chest wall rise - Respiratory Respiratory exam: Present: other (Poor air movement in the right lung field) - Cardiovascular Cardiovascular exam: Present: regular rate, normal rhythm, normal heart sounds - Abdominal Exam Abdominal exam: Present: soft, Non-Tender. Absent: tenderness, distention, guarding, rebound, rigidity - Extremities Exam Extremities exam: Present: normal inspection, full ROM. Absent: tenderness, pedal edema - Back Exam Back exam: Present: normal inspection, full ROM. Absent: tenderness - Neurological Exam Neurological exam: Present: alert, oriented X3 - Psychiatric Psychiatric exam: Present: normal affect, normal mood - Skin Skin exam: Present: warm, dry, intact, normal color Course Vital Signs Temperature 98.8 F 09/02/16 09:29 Pulse Rate 117 09/02/16 09:29 Respiratory Rate 25 09/02/16 09:29 Blood Pressure 113/75 09/02/16 09:29 O2 Sat by Pulse Oximetry 99 09/02/16 09:29 Temperature 0 F L 09/02/16 13:50 Pulse Rate 108 09/02/16 11:57 Respiratory Rate 18 09/02/16 13:50 Blood Pressure 101/74 09/02/16 13:50 O2 Sat by Pulse Oximetry 96 09/02/16 11:57 Oxygen Delivery Oxygen Delivery Nasal Cannula Shortness of Breath/Dyspnea - Differential Diagnosis Likely: acute exacerbation of chronic obstructive airways disease, congestive heart failure, pneumonia, pulmonary embolism - Medical Records Medical records reviewed: Yes I reviewed the patient's medical records. - Lab Data Lab results reviewed: Yes I reviewed the patient's lab results. Result diagrams: 09/02/16 09:50 09/02/16 09:50 Lab Results 09/02/16 09/02/16 09/02/16 Range/Units 09:50 09:50 09:50 WBC 10.0 (4.3-11.1) K/mcL RBC 4.16 (3.82-4.97) M/mcL Hgb 11.7 (11.5-15.4) g/dL Hct 35.6 (35.3-44.9) % MCV 85.6 (83.0-100.0) fL MCH 28.1 (28.0-33.3) pg MCHC 32.9 (31.6-35.5) g/dL RDW 16.6 H (11.5-14.5) % Plt Count 213 (140-400) K/mcL MPV 9.2 L (9.4-12.4) fL Immature Gran % 0.4 (0-4) % Seg Neutrophils % 81.9 % Lymphocytes % 7.6 % Monocytes % 9.8 % Eosinophils % 0.2 % Basophils % 0.1 % Neutrophils # 8.2 (1.6-8.9) K/mcL Lymphocytes # 0.8 (0.6-4.6) K/mcL Monocytes # 1.0 (0.0-1.3) K/mcL Eosinophils # 0.0 (0.0-0.6) K/mcL Basophils # 0.0 (0.0-0.2) K/mcL PT 41.8 H (9.4-12.1) Seconds INR 3.7 APTT 109.8 H (26.0-36.0) Seconds Sodium 138 (136-145) mEq/L Potassium 3.5 (3.5-4.5) mEq/L Chloride 97 L (98-109) mEq/L Carbon Dioxide 30 H (19-29) mEq/L BUN 22 H (7-20) mg/dL Creatinine 1.00 (0.57-1.11) mg/dL Est GFR ( Amer) > 60 (> 60) Est GFR (Non-Af Amer) 54 L (> 60) BUN/Creatinine Ratio 22 (6-26) Glucose 121 H (70-99) mg/dL Calculated Osmolality 291 (280-300) Calcium 9.5 (8.6-10.8) mg/dL Total Bilirubin 1.1 (0.2-1.2) mg/dL AST 26 (5-34) Units/L ALT 33 (0-55) Units/L Alkaline Phosphatase 96 (38-126) Units/L Creatine Kinase 178 H (29-168) Units/L Troponin I (0-0.03) ng/mL Serum Total Protein 7.1 (6.0-8.3) g/dL Albumin 2.9 L (3.5-5.0) g/dL Globulin 4.2 H (2.4-3.5) g/dL Albumin/Globulin Ratio 0.7 L (1.1-2.2) 09/02/16 Range/Units 09:50 WBC (4.3-11.1) K/mcL RBC (3.82-4.97) M/mcL Hgb (11.5-15.4) g/dL Hct (35.3-44.9) % MCV (83.0-100.0) fL MCH (28.0-33.3) pg MCHC (31.6-35.5) g/dL RDW (11.5-14.5) % Plt Count (140-400) K/mcL MPV (9.4-12.4) fL Immature Gran % (0-4) % Seg Neutrophils % % Lymphocytes % % Monocytes % % Eosinophils % % Basophils % % Neutrophils # (1.6-8.9) K/mcL Lymphocytes # (0.6-4.6) K/mcL Monocytes # (0.0-1.3) K/mcL Eosinophils # (0.0-0.6) K/mcL Basophils # (0.0-0.2) K/mcL PT (9.4-12.1) Seconds INR APTT (26.0-36.0) Seconds Sodium (136-145) mEq/L Potassium (3.5-4.5) mEq/L Chloride (98-109) mEq/L Carbon Dioxide (19-29) mEq/L BUN (7-20) mg/dL Creatinine (0.57-1.11) mg/dL Est GFR ( Amer) (> 60) Est GFR (Non-Af Amer) (> 60) BUN/Creatinine Ratio (6-26) Glucose (70-99) mg/dL Calculated Osmolality (280-300) Calcium (8.6-10.8) mg/dL Total Bilirubin (0.2-1.2) mg/dL AST (5-34) Units/L ALT (0-55) Units/L Alkaline Phosphatase (38-126) Units/L Creatine Kinase (29-168) Units/L Troponin I 0.00 (0-0.03) ng/mL Serum Total Protein (6.0-8.3) g/dL Albumin (3.5-5.0) g/dL Globulin (2.4-3.5) g/dL Albumin/Globulin Ratio (1.1-2.2) - Radiology Data Radiology results reviewed: Yes I reviewed the patient's radiology results. Chest CTA 09/02/16 09:21 IMPRESSION: 1. No acute pulmonary embolus 2. Right hilar mass/adenopathy is grossly similar to the prior exam measuring approximately 3.5 x 3 cm in size. 3. Progressive atelectasis in the right lower lobe with collapse of the right middle lobe. Small right pleural effusion has increased in size. 4. Endobronchial mass in the right mainstem bronchus with possible mucous plugging superimposed which extends nearly to the raji. D/ / Joon Rodriguez MD / Joon Rodriguez MD Interpreting Provider: Joon Rodriguez MD - EKG Data EKG attestation: Yes I reviewed and interpreted this EKG. EKG shows normal: Reports: sinus rhythm Rate: Reports: normal Rhythm: Reports: NSR Critical Care Time Total Critical Care Time: 30 Attestation: Critical care performed: Time is exclusive of separately billable procedures. Time includes: direct patient care, patient reassessment, coordination of patient care, interpretation of data (laboratory data, radiology data, and respiratory data), review of patient's medical records, medical consultation and documentation of patient care. Procedures included in critical care time: Procedures excluded from critical care time:
[2016-09-02] MEDS ORDERED: Naloxone 0.4 MG/ML INJ IVP PRN (13:30)
[2016-09-02] MEDS ORDERED: *HR* Morphine 2 MG/ML SYRINGE IVP PRN (13:30)
[2016-09-02] MEDS ORDERED: Ondansetron ODT 4 MG TAB.RAPDIS SL PRN (13:30)
[2016-09-02] MEDS ORDERED: GuaiFENesin/Codeine Oral Soln 5 ML UDC PO PRN (13:39)
--- NOTE | 2016-09-02 13:51 | Internal Med History&Physical ---
<Morton,Becki J - Last Filed: 09/02/16 14:20> Date of Encounter: 09/02/16 Time of Encounter: 13:50 Assessment and Plan (1) Squamous cell carcinoma lung Current visit: No Status: Chronic per hx. Last received chem 12/2015. Now with worsening SOB and hemoptysis. Chest CTA with stable right hilar mass and new endobronchial mass in the right mainstem bronchus with possible mucus plugging. Hemodynamically stable on exam. Pulmonary consulted. ? bronch Qualifiers: Laterality: right Qualified Code(s): C34.91 - Malignant neoplasm of unspecified part of right bronchus or lung (2) Pulmonary embolism Current visit: No Status: Acute dx on 08/19/2016 admission. CTA at that time with acute RLL pulmoary embolism. Was started on Xarelto. Repeat CTA with stable and new mass as noted above, no evidence of pulmonary embolism. INR 3.7. Hold Xarelto. Pulm consulted Qualifiers: Pulmonary embolism type: other Chronicity: acute Acute cor pulmonale presence: without acute cor pulmonale Qualified Code(s): I26.99 - Other pulmonary embolism without acute cor pulmonale (3) Pleural effusion Current visit: No Status: Acute chronic and in the setting of lung cancer. Chest CTA with increased size of right pleural effusion. Stable, Pulm consulted (4) Tachycardia Current visit: Yes Status: Acute HRs 110 in the ED. Hemodynamically stable. Suspect secondary to pain, SOB. Monitor on tele. (5) COPD (chronic obstructive pulmonary disease) Current visit: No Status: Acute per hx. On home O2. No evidence of exacerbation on exam. Cont home inhalers Qualifiers: COPD type: unspecified COPD Qualified Code(s): J44.9 - Chronic obstructive pulmonary disease, unspecified (6) DVT prophylaxis Current visit: No Status: Acute SCDs, supertherapeutic INR Internal Medicine - H&P: HPI Chief complaint: coughing up blood and short of breath History of present illness: Ms. Paul is a 76 year old female with PMH COPD, lung cancer and recent pulmonary embolosim who presented to [facility] on 09/02/2016 with complaints of worsening shortness of breath and hemoptysis. She was found to have small right pleural effusion and endobrachial mass with possible mucus plugging. She was admitted for Pulmonary consultation. Information obtained form chart review and patient report. Patient says she has been SOB since last admission. Says she has her good days and bad days, still with right rib pain. Rates 5/10, nothing makes better, cughing and deep inspiration make worse. Says she noticed a little bleeding on oxygen tubing last night and then coughed up large amt bright red blood this morning. Past Med Surg Social Fam HX - Past Medical History Medical history: arthritis, asthma, cancer, COPD, DVT, glaucoma, hyperlipidemia , hypertension Psychiatric history: no psych history - Past Surgical History Surgical History: appendectomy, hysterectomy, orthopedic, other - Social History Smoking Status: Former smoker Smokeless Tobacco Status: No Alcohol use: none Drug use: none - Additional Family History Additional family history: reviewed and non-contributory Internal Medicine - H&P: Meds Albuterol Sulfate [Proair Hfa] 2 puff PO Q4H PRN 10/03/15 [History] Alendronate Sodium [Fosamax] 70 mg PO QWEEK MDD thursday10/03/15 [History] Calcium Carbonate [Calcium] 500 mg PO DAILY 10/03/15 [History] Cholecalciferol (Vitamin D3) [Vitamin D3] 5,000 unit PO DAILY 10/03/15 [History] Cyanocobalamin (Vitamin B-12) [Vitamin B-12] 1,000 mcg SL DAILY 10/03/15 [ History] Fluticasone/Salmeterol [Advair 250-50 Diskus] 1 puff IH BID 10/03/15 [History] Gluc/Benito-MSM#1/C/Maciej/Paulie/Bor [Osteo Bi-Flex Caplet] 1 tab PO DAILY 10/03/15 [ History] Oxygen 4 l NS HS 10/03/15 [History] Simvastatin [Zocor] 20 mg PO HS 10/03/15 [History] Tiotropium [Spiriva] 1 puff IH DAILY 10/03/15 [History] Torsemide [Demadex] 10 - 20 mg PO DAILY 10/03/15 [History] Omeprazole [PriLOSEC] 40 mg PO DAILY #30 cap 08/07/16 [Rx] Gabapentin [Neurontin] 300 mg PO HS #30 capsule 08/14/16 [Rx] Zolpidem [Ambien] 10 mg PO HS #30 tablet 08/14/16 [Rx] Rivaroxaban [Xarelto] 15 mg PO BID 21 Days 08/22/16 [Rx] GuaiFENesin/Codeine [Robitussin w/Codeine] 5 ml PO Q6HR PRN #250 liquid [Rx] HYDROcodone/Acet 7.5/325 mg [[place] 7.5-325 mg] 1 tab PO Q6H #120 tablet [Rx] Rivaroxaban [Xarelto] 20 mg PO DAILY #30 tablet 08/29/16 [Rx] Pantoprazole Sodium [Protonix] 40 mg PO DAILY 09/02/16 [History] Allergies ampicillin Allergy (Verified 07/31/16 11:36) Hives diltiazem [From Cardizem] Allergy (Verified 07/31/16 11:36) Hives aspirin Adverse Reaction (Verified 07/31/16 11:36) Nausea caffeine [From Anacin] Adverse Reaction (Verified 08/20/16 10:47) Nausea Oxycodone [From Percocet] Adverse Reaction (Verified 08/19/16 11:37) Nausea All Systems PM: A 10-system review of systems was performed and is negative for pertinent findings except as documented above in the HPI. - Constitutional Constitutional: no chills, no fever(s), no night sweats - EENT Eyes: no change in vision, no discharge, no pain, no photophobia Ears: no ear discharge, no ear pain, no tinnitus Nose, mouth and throat: no dysphagia, no nasal discharge, no neck pain, no sore throat - Cardiovascular Cardiovascular ROS IM: no chest pain, no diaphoresis, no dyspnea, no lightheadedness, no palpitations, no syncope - Respiratory Respiratory: cough, dyspnea, hemoptysis, dyspnea on exertion, no wheezing, no excessive phlegm production - Gastrointestinal Gastrointestinal: no abdominal pain, no diarrhea, no hematemesis, no hematochezia, no melena, no nausea, no vomiting - Genitourinary Genitourinary: no change in urinary stream, no dysuria, no flank pain, no hematuria - Musculoskeletal Musculoskeletal ROS IM: no numbness, no tingling - Integumentary Integumentary IM: no rash, no unusual bruising - Neurological Neurological ROS: no confusion, no convulsions, no focal weakness, no numbness, no tingling, no tremor(s) - Hematologic/Lymphatic Hematologic/Lymphatic: no easy bruising - Constitutional Vitals: Temp Pulse Resp BP Pulse Ox 98.8 F 108 18 106/73 96 09/02/16 09:29 09/02/16 11:57 09/02/16 11:57 09/02/16 11:57 09/02/16 11:57 General appearance: Present: A&O X 3, no acute distress - Head Head exam: Present: atraumatic, normocephalic - Eye Eye exam: Present: PERRL, conjuntiva pink, sclera anicteric Pupils: Present: PERRL - Neck Neck exam general surgery: Present: supple, trachea midline. Absent: lymphadenopathy - Respiratory Respiratory exam: Present: chest wall tenderness, decreased breath sounds. Absent: accessory muscle use, rales, rhonchi, wheezes - Cardiovascular Cardiovascular exam: Present: RRR, +S1, +S2. Absent: diastolic murmur, gallop, rubs, systolic murmur - GI/Abdominal GI/Abdominal exam: Present: normal bowel sounds, soft, no peritoneal signs. Absent: distended, tenderness - Extremities Exam Extremities exam: Present: warm, radial pulses palpable and symetrical. Absent : calf tenderness, cyanotic, pedal edema - Neurological Exam Neurological exam: Present: CN II-XII intact, oriented X3, no focal deficits. Absent: pronater drift, facial droop, speech deficit - Skin Skin exam: Present: dry, intact Internal Med - H&P Results - Labs CBC & Chem 7: 09/02/16 09:50 09/02/16 09:50 - EKG Data -: EKG Interpreted by Myself Rate: tachycardia <Pablo Carr H - Last Filed: 09/02/16 16:09> Date of Encounter: 09/02/16 Internal Medicine - H&P: HPI History of present illness: Ms. Paul is a 76 year old female Past Med Surg Social Fam HX - Family History Father Living Status: Age at : 64 Cause of : Heart and lung problems Hx Family Cardiac Disorders: Yes Hx Family Respiratory Disorders: Yes Hx Family Cancer: Yes (Breast, lymph nodes, cervical) Hx Family GI Disorders: No Hx Family Genitourinary Disorders: No Hx Family Endocrine Disorder: Yes (Diabetes) Hx Family Musculoskeletal Disorders: No Hx Family Neuromuscular Disorders: No Hx Family Neurologic Disorders: No (nerve and muscle problems) Hx Family HEENT Disorders: No Hx Family Autoimmune Disorders: No Hx Family Reproductive Disorders: No Hx Family Psychosocial Disorders: No Hx Family Medical Disorders: No All Systems PM: A 10-system review of systems was performed and is negative for pertinent findings except as documented above in the HPI. - Constitutional Vitals: Temp Pulse Resp BP Pulse Ox 97.8 F 98 18 109/75 95 09/02/16 14:46 09/02/16 14:46 09/02/16 14:46 09/02/16 14:46 09/02/16 14:46 Internal Med - H&P Results - Labs CBC & Chem 7: 09/02/16 09:50 09/02/16 09:50 - Attending Attestation 1. Hemoptysis likely secondary to squamous cell carcinoma of the lung exacerbated by Xarelto Pulmonary service was consulted to consider a bronchoscopy Hold Xarelto, consider adding FFP 2. Diabetes type 2 continue insulin sliding scale 3. Right pleural effusion likely secondary to malignancy considering repeating thoracenteses X 4. Pulmonary emboli likely related to malignancy, hold Xarelto for now 5. COPD oxygen dependent, currently on 4 L at baseline Time spent on this admission 40 minutes I examined this patient and my medical decision-making was reviewed with the STEEL SAMPLER/PA/Advanced Practice Nurse/Resident Physician. I agree with the documented findings, disposition and treatment plan as described except to the extent set forth below.
--- NOTE | 2016-09-02 15:41 | Pulmonology Consult Note ---
Date of Encounter: 09/02/16 Time of Encounter: 15:39 Assessment and Plan (1) Abnormal CT scan, chest Current Visit: Yes Status: Acute I reviewed the CT scan of the chest and compared this to prior imaging. 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 Plan for inspection bronchoscopy 09/03/2016. She will be nothing by mouth after midnight tonight. (2) Hemoptysis Current Visit: Yes Status: Acute I suspect this is related to her endobronchial tumor coupled with anticoagulation. As above, plan for inspection bronchoscopy 09/03/2016. (3) Pulmonary embolism Current Visit: No Status: Acute Small right lower lobe embolus noted on CT scan 08/19/2016. Anticoagulation is currently on hold in light of her hemoptysis. Of note, no clot burden noted on CT scan this admission. Qualifiers: Pulmonary embolism type: other Chronicity: acute Acute cor pulmonale presence: without acute cor pulmonale Qualified Code(s): I26.99 - Other pulmonary embolism without acute cor pulmonale (4) Pleural effusion Current Visit: No Status: Acute Pleural effusion noted on CT scan the chest. It is slightly bigger compared to prior CT scan, and I suspect this is secondary to her atelectatic from an endobronchial obstruction. She had a prior thoracentesis on 08/21/2016, but only 175 mL were drained at that time. Pleural fluid cytology was negative, and no further pleural fluid analysis was performed. No further intervention recommended at this time, but if this continues to progress she may be a candidate for a Pleurx catheter. 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 Unclear if she is a candidate for further palliative chemotherapy or radiation. Defer to hematology and radiation oncology. If she is not a candidate for further treatment, hospice would be appropriate. Qualifiers: Laterality: right Qualified Code(s): C34.91 - Malignant neoplasm of unspecified part of right bronchus or lung History of Present Illness Consult date: 09/02/16 Requesting physician: Peter Garcia Reason for consult: abnormal CXR/CT Chief complaint: dyspnea History of present illness: 76-year-old female with medical history significant for lung cancer who presents for evaluation of progressive dyspnea. The patient had a recent hospitalization earlier this month for worsening dyspnea and was found to have a small PE. She was placed on anticoagulation and discharged. He is also been receiving steroids for possible radiation pneumonitis. A few days after discharge from the hospital, she developed allergic chest pain and worsening dyspnea on exertion. This was progressive in nature. She developed hemoptysis in the past 24-48 hours as well. No fever/chills. CT of the chest in the emergency room revealed significant atelectasis on the right, and pulmonary was consult for further evaluation. Past Med Surg Social Fam HX - Past Medical History Medical history: arthritis, asthma, cancer, COPD, DVT, glaucoma, hyperlipidemia , hypertension Psychiatric history: no psych history - Past Surgical History Surgical History: appendectomy, hysterectomy, orthopedic, other - Social History Smoking Status: Former smoker Smokeless Tobacco Status: No Alcohol use: none Drug use: none - Family History Father Living Status: Age at : 64 Cause of : Heart and lung problems Hx Family Cardiac Disorders: Yes Hx Family Respiratory Disorders: Yes Hx Family Cancer: Yes (Breast, lymph nodes, cervical) Hx Family GI Disorders: No Hx Family Genitourinary Disorders: No Hx Family Endocrine Disorder: Yes (Diabetes) Hx Family Musculoskeletal Disorders: No Hx Family Neuromuscular Disorders: No Hx Family Neurologic Disorders: No (nerve and muscle problems) Hx Family HEENT Disorders: No Hx Family Autoimmune Disorders: No Hx Family Reproductive Disorders: No Hx Family Psychosocial Disorders: No Hx Family Medical Disorders: No Medications and Allergies Albuterol Sulfate [Proair Hfa] 2 puff PO Q4H PRN 10/03/15 [History] Alendronate Sodium [Fosamax] 70 mg PO QWEEK MDD thursday10/03/15 [History] Calcium Carbonate [Calcium] 500 mg PO DAILY 10/03/15 [History] Cholecalciferol (Vitamin D3) [Vitamin D3] 5,000 unit PO DAILY 10/03/15 [History] Cyanocobalamin (Vitamin B-12) [Vitamin B-12] 1,000 mcg SL DAILY 10/03/15 [ History] Fluticasone/Salmeterol [Advair 250-50 Diskus] 1 puff IH BID 10/03/15 [History] Gluc/Benito-MSM#1/C/Maciej/Paulie/Bor [Osteo Bi-Flex Caplet] 1 tab PO DAILY 10/03/15 [ History] Oxygen 4 l NS HS 10/03/15 [History] Simvastatin [Zocor] 20 mg PO HS 10/03/15 [History] Tiotropium [Spiriva] 1 puff IH DAILY 10/03/15 [History] Torsemide [Demadex] 10 - 20 mg PO DAILY 10/03/15 [History] Omeprazole [PriLOSEC] 40 mg PO DAILY #30 cap 08/07/16 [Rx] Gabapentin [Neurontin] 300 mg PO HS #30 capsule 08/14/16 [Rx] Zolpidem [Ambien] 10 mg PO HS #30 tablet 08/14/16 [Rx] Rivaroxaban [Xarelto] 15 mg PO BID 21 Days 08/22/16 [Rx] GuaiFENesin/Codeine [Robitussin w/Codeine] 5 ml PO Q6HR PRN #250 liquid [Rx] HYDROcodone/Acet 7.5/325 mg [[place] 7.5-325 mg] 1 tab PO Q6H #120 tablet [Rx] Rivaroxaban [Xarelto] 20 mg PO DAILY #30 tablet 08/29/16 [Rx] Pantoprazole Sodium [Protonix] 40 mg PO DAILY 09/02/16 [History] Allergies ampicillin Allergy (Verified 07/31/16 11:36) Hives diltiazem [From Cardizem] Allergy (Verified 07/31/16 11:36) Hives aspirin Adverse Reaction (Verified 07/31/16 11:36) Nausea caffeine [From Anacin] Adverse Reaction (Verified 08/20/16 10:47) Nausea Oxycodone [From Percocet] Adverse Reaction (Verified 08/19/16 11:37) Nausea All Systems: A 10-system review of systems was performed and is negative for pertinent findings except as documented above in the HPI. Physical Examination Vital Signs: Vital Signs, Last 4 Hours Temp Pulse Resp BP Pulse Ox 09/02/16 14:46 97.8 F 98 18 109/75 95 09/02/16 13:50 0 F L 18 101/74 General: Uncomfortable-appearing elderly female, but no acute distress Eyes: nonicteric ENT: oropharynx moist Neck: supple, no lymphadenopathy Lungs: Diminished breath sounds on the right Cardiovascular: regular rate and rhythm Gastrointestinal: normoactive bowel sounds, soft, non-tender, non-distended Integumentary: normal Extremities: no cyanosis, no edema Musculoskeletal: no deformities Neuro: normal mental status, non-focal exam Psych: mood appropriate, affect normal Results - Laboratory Findings CBC and BMP: 09/02/16 09:50 09/02/16 09:50 PT/INR, D-dimer PT 41.8 Seconds (9.4-12.1) H 09/02/16 09:50 Abnormal lab findings: Abnormal lab results RDW 16.6 % (11.5-14.5) H 09/02/16 09:50 MPV 9.2 fL (9.4-12.4) L 09/02/16 09:50 PT 41.8 Seconds (9.4-12.1) H 09/02/16 09:50 APTT 109.8 Seconds (26.0-36.0) H 09/02/16 09:50 Chloride 97 mEq/L (98-109) L 09/02/16 09:50 Carbon Dioxide 30 mEq/L (19-29) H 09/02/16 09:50 BUN 22 mg/dL (7-20) H 09/02/16 09:50 Est GFR (Non-Af Amer) 54 (> 60) L 09/02/16 09:50 Glucose 121 mg/dL (70-99) H 09/02/16 09:50 Creatine Kinase 178 Units/L (29-168) H 09/02/16 09:50 B-Natriuretic Peptide 123 pg/mL (0-100) H 09/02/16 09:50 Albumin 2.9 g/dL (3.5-5.0) L 09/02/16 09:50 Globulin 4.2 g/dL (2.4-3.5) H 09/02/16 09:50 Albumin/Globulin Ratio 0.7 (1.1-2.2) L 09/02/16 09:50 - Clinical Findings Intake & Output: Intake & Output 09/01/16 09/02/16 09/02/16 23:59 07:59 15:59 Output Total 0 / 0 Balance 0 / 0 Weight 68.549 kg Consult Discharge Plan - Plan Referrals: Frank Barboza MD [Primary Care Provider] -
[2016-09-02] MEDS: *HR* HYDROmorphone (PF) 1 MG/ML SYRINGE IVP PRN (18:15)
[2016-09-02] MEDS: Budesonide/Formoterol 80/4.5 MDI IH SCH (20:44)
[2016-09-02] MEDS: Gabapentin 300 MG CAPSULE PO SCH (21:23)
[2016-09-03] MEDS: *HR* HYDROmorphone (PF) 1 MG/ML SYRINGE IVP PRN ×3 (00:30→07:57)
[2016-09-03 03:49] LABS: Basophils % 0.1 %; Eosinophils % 0.5 %; Hematocrit 32.8 % (35.3-44.9); Hemoglobin 10.5 g/dL (11.5-15.4); Immature Granulocytes % 0.3 % (0-4); Immature Platelets 2.1 % (1.1-6.1); Lymphocytes # 1.1 K/mcL (0.6-4.6); Lymphocytes % 12.1 %; Mean Corpuscular Hemoglobin 27.4 pg (28.0-33.3); Mean Corpuscular Volume 85.6 fL (83.0-100.0); Mean Platelet Volume 8.9 fL (9.4-12.4); Monocytes # 0.8 K/mcL (0.0-1.3); Monocytes % 8.9 %; Neutrophils # 6.8 K/mcL (1.6-8.9); Platelet Count 239 K/mcL (140-400); Red Blood Count 3.83 M/mcL (3.82-4.97); Red Cell Distribution Width 16.2 % (11.5-14.5); Segmented Neutrophils % 78.1 %
[2016-09-03 04:07] LABS: Alanine Aminotransferase 29 Units/L (0-55); Albumin 2.7 g/dL (3.5-5.0); Albumin/Globulin Ratio 0.7 (1.1-2.2); Alkaline Phosphatase 92 Units/L (38-126); Aspartate Amino Transferase 24 Units/L (5-34); BUN/Creatinine Ratio 26 (6-26); Bilirubin,Total 0.7 mg/dL (0.2-1.2); Blood Urea Nitrogen 23 mg/dL (7-20); Carbon Dioxide 30 mEq/L (19-29); Chloride 96 mEq/L (98-109); Glucose 115 mg/dL (70-99); Osmolality,Calculated 283 (280-300); Potassium 4.1 mEq/L (3.5-4.5); Sodium 134 mEq/L (136-145); Total Protein 6.7 g/dL (6.0-8.3); eGFR For African Americans > 60 (> 60); eGFR For Non-African Americans > 60 (> 60)
[2016-09-03 04:43] LABS: Prothrombin Time 21.9 Seconds (9.4-12.1)
[2016-09-03 04:46] LABS: Activated Partial Thrombo Time 55.6 Seconds (26.0-36.0)
[2016-09-03] MEDS: Cyanocobalamin (B-12) 1,000 MCG TABLET PO SCH (07:58)
[2016-09-03] MEDS ORDERED: Tiotropium 18 MCG inhalation IH SCH (09:00)
[2016-09-03] MEDS ORDERED: Torsemide 20 MG TABLET PO SCH (09:00)
[2016-09-03] MEDS: Budesonide/Formoterol 80/4.5 MDI IH SCH ×2 (09:43→19:55)
[2016-09-03] MEDS ORDERED: *HR* Midazolam HCl 5 MG/5 ML VIAL IVP ONE (10:35)
[2016-09-03] MEDS ORDERED: *HR* FentaNYL (PF) 100 MCG/2 ML VIAL ONE (10:35)
[2016-09-03] MEDS ORDERED: Lidocaine Viscous Oral Soln 15 ML SOLUTION ONE (10:54)
[2016-09-03] MEDS ORDERED: *HR* EPINEPHrine 1 MG/10 ML SYRINGE INTRATRACH PRN (11:04)
[2016-09-03] MEDS ORDERED: Lidocaine Viscous Oral Soln 15 ML SOLUTION MM ONE (11:04)
[2016-09-03] MEDS ORDERED: Tetracaine/Benzocaine/Butamben 200MG/SPRAY (100SPY/BOT) MM ONE (11:04)
--- NOTE | 2016-09-03 11:09 | Electrocardiograph Report ---
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
--- NOTE | 2016-09-03 11:14 | Pre-Sedation Evaluation ---
Pre-sedation evaluation - Pre-sedation checklist Date of procedure: 09/03/16 Procedure: bronchoscopy Recent Vitals: Last Vital Signs Temp 98.7 F 09/03/16 11:00 Pulse 100 09/03/16 11:00 Resp 20 09/03/16 11:00 BP 111/69 09/03/16 11:00 Pulse Ox 95 09/03/16 11:00 H&P (including ROS) documented in medical record: Yes Previous reaction to sedatives/anesthetics: No Dietary Status: NPO after Midnight Dentition: No loose teeth or bridges Possible difficult airway: No ASA Classification *see protocol: CLASS III-Severe systemic disease
[2016-09-03] MEDS ORDERED: 0.9 % Sodium Chloride 500 ML IVC SCH (11:15)
[2016-09-03] MEDS: *HR* Midazolam HCl 5 MG/5 ML VIAL IVP PRN ×2 (11:22→11:28)
[2016-09-03] MEDS: *HR* FentaNYL (PF) 100 MCG/2 ML VIAL IVP PRN ×5 (11:22→20:11)
[2016-09-03] MEDS ORDERED: *HR* Etomidate 20 MG/10 ML AMPUL IVP ONE (11:37)
[2016-09-03] MEDS ORDERED: *HR* Succinylcholine 200 MG/10 ML VIAL IVP ONE (11:38)
[2016-09-03] MEDS ORDERED: Naloxone 0.4 MG/ML INJ IVP PRN (12:00)
[2016-09-03] MEDS ORDERED: Lacri-Lube 3.5 GM TUBE BOTH EYES SCH (12:00)
[2016-09-03] MEDS ORDERED: Lacri-Lube 3.5 GM TUBE BOTH EYES PRN (12:00)
[2016-09-03] MEDS ORDERED: *HR* FentaNYL (PF) 100 MCG/2 ML VIAL IVP PRN (12:03)
--- NOTE | 2016-09-03 12:40 | Internal Med Progress Note ---
Date of Encounter: 09/03/16 Time of Encounter: 10:00 - Assessment and plan (1) Squamous cell carcinoma lung Current Visit: No Status: Chronic Assessment and plan: Patient had a chemotherapy and radiation therapy already. Will consult oncology. Qualifiers: Laterality: right Qualified Code(s): C34.91 - Malignant neoplasm of unspecified part of right bronchus or lung (2) Pulmonary embolism Current Visit: No Status: Acute Assessment and plan: Patient was on xarelto, hold because of hemoptysis. Oncology consult for further management Qualifiers: Pulmonary embolism type: other Chronicity: acute Acute cor pulmonale presence: without acute cor pulmonale Qualified Code(s): I26.99 - Other pulmonary embolism without acute cor pulmonale (3) COPD (chronic obstructive pulmonary disease) Current Visit: No Status: Acute Assessment and plan: Stable, continue home medications Qualifiers: COPD type: unspecified COPD Qualified Code(s): J44.9 - Chronic obstructive pulmonary disease, unspecified (4) DVT prophylaxis Current Visit: No Status: Acute Assessment and plan: EPCD (5) Pleural effusion Current Visit: No Status: Acute Assessment and plan: Will follow pulmonary recommendation (6) Hemoptysis Current Visit: Yes Status: Acute Assessment and plan: Possibly due to lung cancer. Pulmonology on case and plan for bronchoscope - Time Spent With Patient 25 - 35 minutes - Subjective Interval history: Patient is a 76-year-old female admitted for hemoptysis. Her past medical history is significant for squamous cell lung cancer, PE, COPD, hypertension, hyperlipidemia I saw and examined the patient today. She complained of chest pain on the right side. Vitals are stable. Pulmonology consult appreciated. Patient will have bronchoscope today. Oncology consult also called for help. - Constitutional Vitals: Temp Pulse Resp BP Pulse Ox 98.7 F 112 14 113/70 99 09/03/16 11:00 09/03/16 11:45 09/03/16 11:38 09/03/16 11:45 09/03/16 11:45 General appearance: Present: A&O X 3, no acute distress - Head Head exam: Present: atraumatic, normocephalic - Eye Eye exam: Present: PERRL, conjuntiva pink, sclera anicteric Pupils: Present: PERRL - Neck Neck exam general surgery: Present: supple, trachea midline. Absent: lymphadenopathy - Respiratory Respiratory exam: Present: CTAB. Absent: accessory muscle use, rales, rhonchi, wheezes - Cardiovascular Cardiovascular exam: Present: RRR, +S1, +S2. Absent: diastolic murmur, gallop, rubs, systolic murmur - GI/Abdominal GI/Abdominal exam: Present: normal bowel sounds, soft, no peritoneal signs. Absent: distended, tenderness - Extremities Exam Extremities exam: Present: warm, radial pulses palpable and symetrical. Absent : calf tenderness, cyanotic, pedal edema - Neurological Exam Neurological exam: Present: CN II-XII intact, oriented X3, no focal deficits. Absent: pronater drift, facial droop, speech deficit - Skin Skin exam: Present: dry, intact Internal Medicine: Result - Labs CBC & Chem 7: 09/03/16 03:40 09/03/16 03:33 Labs: Short CBC 09/03/16 Range/Units 03:40 WBC 8.7 (4.3-11.1) K/mcL Hgb 10.5 L (11.5-15.4) g/dL Hct 32.8 L (35.3-44.9) % Plt Count 239 (140-400) K/mcL Neutrophils # 6.8 (1.6-8.9) K/mcL BMP 09/03/16 03:33 Sodium 134 L Potassium 4.1 Chloride 96 L Carbon Dioxide 30 H BUN 23 H Creatinine 0.90 Glucose 115 H Calcium 9.0 Liver Function 09/03/16 Range/Units 03:33 Total Bilirubin 0.7 (0.2-1.2) mg/dL AST 24 (5-34) Units/L ALT 29 (0-55) Units/L Alkaline Phosphatase 92 (38-126) Units/L Albumin 2.7 L (3.5-5.0) g/dL - ABG Interpretation ABG results: PT/INR, D-dimer PT 21.9 Seconds (9.4-12.1) H 09/03/16 04:00 - VTE Documentation of Mechanical Device: Intermittent pneumatic compression device Consult Discharge Plan - Plan Referrals: Frank Barboza MD [Primary Care Provider] -
[2016-09-03] MEDS ORDERED: *HR* HYDROcodone/Acet 7.5/325 mg TABLET PO SCH (12:45)
[2016-09-03] MEDS ORDERED: NON-FORMULARY MEDICATION 1 EACH EACH (Alendronate Sodium [Fosamax] 70 MG) PO SCH (12:45)
--- NOTE | 2016-09-03 13:12 | Pulmonology Progress Note ---
Date of Encounter: 09/03/16 Time of Encounter: 13:12 Assessment and Plan (1) Acute postprocedural respiratory failure Current Visit: Yes Status: Acute developed hypoxia during bronchoscopy 09/03 baseline poor respiratory reserve exacerbated by sedation she has underlying malignancy, pleural effusion and PE patient was intubated to protect airway and improve oxygenation/ventilation continue vent setting Propofol for sedation and Fentanyl pushes ABG pending (2) Squamous cell carcinoma lung Current Visit: No Status: Chronic right hilar lung mass enlarging on serial imaging follows with Dr. Cuevas and Dr. Qiu unclear if she is a candidate for further palliative chemo/radiation - hospice would be appropriate if not a candidate heme/onc consulted Qualifiers: Laterality: right Qualified Code(s): C34.91 - Malignant neoplasm of unspecified part of right bronchus or lung (3) Hemoptysis Current Visit: Yes Status: Acute likely multifactorial from endocbronchial tumor and anticoagulation for PE bronchoscopy (09/03) revealed completely obstructing mass found proximally in the bronchus intermedius, mass was bloody and endobronchial OG in place INR 2.0 (4) Pulmonary embolism Current Visit: No Status: Acute Xarelto on hold due to hemoptysis small RLL embolus noted on CT Chest 08/19 recent CTA chest 09/02 shows no increase clot burden heme/onc consulted, await recommendations Qualifiers: Pulmonary embolism type: other Chronicity: acute Acute cor pulmonale presence: without acute cor pulmonale Qualified Code(s): I26.99 - Other pulmonary embolism without acute cor pulmonale (5) Pleural effusion Current Visit: No Status: Acute CTA Chest 09/02 reveals small right pleural effusion that has increased in size suspect likely from right collapsed lung and malignant exudate from known squamous cell lung carcinoma or PE thoracentesis from prior admission with minimal fluid if worsens or signs of infection may consider another thoracentesis (6) COPD (chronic obstructive pulmonary disease) Current Visit: No Status: Acute respiratory status liekly secondary to sedative continue duonebs no wheezing on exam Qualifiers: COPD type: unspecified COPD Qualified Code(s): J44.9 - Chronic obstructive pulmonary disease, unspecified (7) Abnormal CT scan, chest Current Visit: Yes Status: Acute CTA chest 09/02 reveals endobronchial mass in the right mainstem bronchus with possible mucous plugging bronchoscopy performed 09/03 (8) DVT prophylaxis Current Visit: No Status: Acute EPCDs as AC contraindicated due to hemoptysis Subjective Principal diagnosis: dyspnea, hemptysis Interval history: Patient seen and examined at bedside. She is currently intubated and sedated on Propofol. Reportedly she became hypoxic after given sedation during bronchoscopy and was electively intubated. Transferred to the ICU for further management. Objective PUL Vital signs: Last Vital Signs Temp 99.3 F 09/03/16 12:02 Pulse 108 09/03/16 13:00 Resp 16 09/03/16 13:00 BP 99/66 09/03/16 13:00 Pulse Ox 100 09/03/16 13:00 General appearance: no acute distress (sedated and mechanically ventilated) Eyes: nonicteric, other (PERRL) ENT: other (endotracheal intubation) Neck: supple Effort: normal (mechanically ventilated with symmetric chest rise) Auscultation: right: diminished breath sounds, bilateral: clear Cardiovascular: regular rate and rhythm Gastrointestinal: normoactive bowel sounds, soft, non-tender, non-distended Integumentary: other Extremities: no edema, no clubbing Musculoskeletal: no deformities, other (left chest wall port) pupils equal and round, unable to assess due to mental status Ventilator Settings Ventilator Settings: Ventilator Settings, Last 8 Hours Ventilator Mode A/C Ventilator Mode A/C Ventilator Tidal Volume 450 Setting Ventilator Tidal Volume 450 Setting Ventilator Respiratory Rate 14 Setting Ventilator Respiratory Rate 14 Setting Actual Respiratory Rate 16 Actual Respiratory Rate 21 Positive End Expiratory 5 Pressure Positive End Expiratory 5 Pressure Peak Inspiratory Airway 30 Pressure Peak Inspiratory Airway 25 Pressure Results - Laboratory Findings CBC and BMP: 09/03/16 03:40 09/03/16 03:33 PT/INR, D-dimer PT 21.9 Seconds (9.4-12.1) H 09/03/16 04:00 Abnormal lab findings: Abnormal lab results Hgb 10.5 g/dL (11.5-15.4) L 09/03/16 03:40 Hct 32.8 % (35.3-44.9) L 09/03/16 03:40 MCH 27.4 pg (28.0-33.3) L 09/03/16 03:40 RDW 16.2 % (11.5-14.5) H 09/03/16 03:40 MPV 8.9 fL (9.4-12.4) L 09/03/16 03:40 PT 21.9 Seconds (9.4-12.1) H 09/03/16 04:00 APTT 55.6 Seconds (26.0-36.0) H 09/03/16 04:00 Sodium 134 mEq/L (136-145) L 09/03/16 03:33 Chloride 96 mEq/L (98-109) L 09/03/16 03:33 Carbon Dioxide 30 mEq/L (19-29) H 09/03/16 03:33 BUN 23 mg/dL (7-20) H 09/03/16 03:33 Glucose 115 mg/dL (70-99) H 09/03/16 03:33 POC Glucose 114 (58-89) H 09/03/16 12:32 Creatine Kinase 178 Units/L (29-168) H 09/02/16 09:50 B-Natriuretic Peptide 123 pg/mL (0-100) H 09/02/16 09:50 Albumin 2.7 g/dL (3.5-5.0) L 09/03/16 03:33 Globulin 4.0 g/dL (2.4-3.5) H 09/03/16 03:33 Albumin/Globulin Ratio 0.7 (1.1-2.2) L 09/03/16 03:33 - Diagnostic Findings Chest x-ray: report reviewed, image reviewed - Clinical Findings Intake & Output: Intake & Output 09/02/16 09/03/16 09/03/16 23:59 07:59 15:59 Intake Total 500 / 500 0 / 0 300 / 300 Output Total 400 / 400 100 / 100 0 / 0 Balance 100 / 100 -100 / -100 300 / 300 Weight 72.121 kg - VTE Documentation of Mechanical Device: Intermittent pneumatic compression device Consult Discharge Plan - Plan Referrals: Frank Barboza MD [Primary Care Provider] -
--- NOTE | 2016-09-03 15:55 | Event Note ---
Date of Encounter: 09/03/16 Time of Encounter: 15:48 Patient's youngest daughter, Altagracia, who is the POA requested myself into the room to discuss code status. Her RN Karolina was present in the room at that time. In the room included all of her children, 2 sons and 3 daughters. They have agreed that Janet would not wish to live on a endotracheal tube long- term. If she went into cardiac arrest they do not wish for CPR to be performed. I discussed the code status be changed to [id number]. The POA and other family members are all in agreement with the change.
[2016-09-03] MEDS ORDERED: Potassium Phosphate 44 MEQ in 0.9 % Sodium Chloride 250 ML IVPB PRN (16:06)
[2016-09-03] MEDS: Ipratropium/Albuterol Neb 3 ML IH SCH ×3 (16:30→23:59)
--- NOTE | 2016-09-03 16:44 | Oncology Inp Consult Note ---
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 Findings in imaging as well as bronchoscopy discussed with the patient's daughters in length. She is intubated due to acute respiratory failure following bronchoscopy procedure. Anticoagulation is held due to bleeding. Monitor Hgb/Hct Family understands that treatment options for recurrent malignancy are limited and overall prognosis is poor.Overall prognosis guarded no CPR measures, Continue supportive care, will follow to reassess. Qualifiers: Laterality: right Qualified Code(s): C34.91 - Malignant neoplasm of unspecified part of right bronchus or lung - Data of Consult Requesting Physician: Peter Garcia MD Primary Care Provider: Frank Barboza MD - Consult Narrative Reason for consult: lung cancer, hemoptysis History of present illness: Ms. Paul is a 76 year old female with medical history significant for lung cancer squamous cell carcinoma stage IIIa last in September 2015 when she had a right hilar mass measuring 3.4 x 3.3 cm and subcarinal lymphadenopathy measuring 2.5 x 1.3 cm in size. She underwent chemotherapy radiation with carboplatin and Taxol along with radiation from October 2015 completed January 2016 and consolidation Taxol 2 treatment. Patient developed a good clinical response, developed radiation pneumonitis which was treated with steroid tapering course with improvement. Patient developed sharp chest pain as a result of that she was hospitalized in [place] imaging showed a pulmonary embolism, she was started on anticoagulation due to symptoms of worsening of pain. Patient was readmitted August 2016 with the hemoptysis hypoxemia had undergone a CT angiogram of chest and that showed no acute pulmonary embolism, right hilar mass was measuring similar in size compared to prior, endobronchial mass lesion in the right mainstem bronchus with mucous plugging was noted. Patient underwent a bronchoscopy 09/03/2016 that showed a completely obstructing endobronchial tumor in the bronchus intermedius. Due to hemoptysis xarelto is being held. Past Med Surg Social Fam HX - Past Medical History Medical history: arthritis, asthma, cancer, COPD, DVT, glaucoma, hyperlipidemia , hypertension Psychiatric history: no psych history - Past Surgical History Surgical History: appendectomy, hysterectomy, orthopedic, other - Social History Smoking Status: Former smoker Smokeless Tobacco Status: No Alcohol use: none Drug use: none - Family History Father Living Status: Age at : 64 Cause of : Heart and lung problems Hx Family Cardiac Disorders: Yes Hx Family Respiratory Disorders: Yes Hx Family Cancer: Yes (Breast, lymph nodes, cervical) Hx Family GI Disorders: No Hx Family Genitourinary Disorders: No Hx Family Endocrine Disorder: Yes (Diabetes) Hx Family Musculoskeletal Disorders: No Hx Family Neuromuscular Disorders: No Hx Family Neurologic Disorders: No (nerve and muscle problems) Hx Family HEENT Disorders: No Hx Family Autoimmune Disorders: No Hx Family Reproductive Disorders: No Hx Family Psychosocial Disorders: No Hx Family Medical Disorders: No Medications and Allergies Albuterol Sulfate [Proair Hfa] 2 puff PO Q4H PRN 10/03/15 [History] Alendronate Sodium [Fosamax] 70 mg PO QWEEK MDD thursday10/03/15 [History] Calcium Carbonate [Calcium] 500 mg PO DAILY 10/03/15 [History] Cholecalciferol (Vitamin D3) [Vitamin D3] 5,000 unit PO DAILY 10/03/15 [History] Cyanocobalamin (Vitamin B-12) [Vitamin B-12] 1,000 mcg SL DAILY 10/03/15 [ History] Fluticasone/Salmeterol [Advair 250-50 Diskus] 1 puff IH BID 10/03/15 [History] Gluc/Benito-MSM#1/C/Maciej/Paulie/Bor [Osteo Bi-Flex Caplet] 1 tab PO DAILY 10/03/15 [ History] Oxygen 4 l NS HS 10/03/15 [History] Simvastatin [Zocor] 20 mg PO HS 10/03/15 [History] Tiotropium [Spiriva] 1 puff IH DAILY 10/03/15 [History] Torsemide [Demadex] 10 - 20 mg PO DAILY 10/03/15 [History] Omeprazole [PriLOSEC] 40 mg PO DAILY #30 cap 08/07/16 [Rx] Gabapentin [Neurontin] 300 mg PO HS #30 capsule 08/14/16 [Rx] Zolpidem [Ambien] 10 mg PO HS #30 tablet 08/14/16 [Rx] Rivaroxaban [Xarelto] 15 mg PO BID 21 Days 08/22/16 [Rx] GuaiFENesin/Codeine [Robitussin w/Codeine] 5 ml PO Q6HR PRN #250 liquid [Rx] HYDROcodone/Acet 7.5/325 mg [[place] 7.5-325 mg] 1 tab PO Q6H #120 tablet [Rx] Rivaroxaban [Xarelto] 20 mg PO DAILY #30 tablet 08/29/16 [Rx] Pantoprazole Sodium [Protonix] 40 mg PO DAILY 09/02/16 [History] Allergies ampicillin Allergy (Verified 07/31/16 11:36) Hives diltiazem [From Cardizem] Allergy (Verified 07/31/16 11:36) Hives aspirin Adverse Reaction (Verified 07/31/16 11:36) Nausea Oxycodone [From Percocet] Adverse Reaction (Verified 08/19/16 11:37) Nausea ROS unobtainable: due to endotracheal tube Oncology - Exam - Constitutional Vitals: Temp Pulse Resp BP Pulse Ox 101.1 F H 102 16 98/63 100 09/03/16 16:19 09/03/16 16:00 09/03/16 16:00 09/03/16 16:00 09/03/16 16:00 Exam: intubated on propofol - Head Head exam: Present: atraumatic - Eye Eye exam: Present: sclera anicteric - ENT Additional comments: ET tube. blood stained secretions in tube - Neck Neck exam: Present: normal inspection - Respiratory Respiratory exam: Present: CTAB Additional comments: Vent FiO2 40%PEEP5 - Cardiovascular Cardiovascular exam: Present: +S1, +S2 - GI/Abdominal GI/Abdominal exam: Present: normal bowel sounds, soft - Neurological Exam Additional comments: responds to verbal, moving her head Oncology - Results - Labs Labs: Short CBC 09/03/16 Range/Units 03:40 WBC 8.7 (4.3-11.1) K/mcL Hgb 10.5 L (11.5-15.4) g/dL Hct 32.8 L (35.3-44.9) % Plt Count 239 (140-400) K/mcL Neutrophils # 6.8 (1.6-8.9) K/mcL BMP 09/03/16 03:33 Sodium 134 L Potassium 4.1 Chloride 96 L Carbon Dioxide 30 H BUN 23 H Creatinine 0.90 Glucose 115 H Calcium 9.0 Liver Function 09/03/16 Range/Units 03:33 Total Bilirubin 0.7 (0.2-1.2) mg/dL AST 24 (5-34) Units/L ALT 29 (0-55) Units/L Alkaline Phosphatase 92 (38-126) Units/L Albumin 2.7 L (3.5-5.0) g/dL - Imaging and Cardiology CT scan - chest Status: image reviewed by me Consult Discharge Plan - Plan Referrals: Frank Barboza MD [Primary Care Provider] -
[2016-09-03] MEDS ORDERED: Acetaminophen IV 1,000 MG/100 ML INFUS..BTL IVPB ONE (18:23)
[2016-09-03] MEDS: Chlorhexidine Rinse 15 ML MOUTHWASH MM SCH (21:24)
[2016-09-03] MEDS: Gabapentin 300 MG CAPSULE PO SCH (21:25)
[2016-09-04] MEDS: *HR* FentaNYL (PF) 100 MCG/2 ML VIAL IVP PRN ×4 (00:42→13:12)
[2016-09-04] MEDS: Ipratropium/Albuterol Neb 3 ML IH SCH ×4 (03:46→15:54)
[2016-09-04 04:07] LABS: Basophils % 0.1 %; Eosinophils % 0.4 %; Hematocrit 31.1 % (35.3-44.9); Immature Granulocytes % 0.7 % (0-4); Lymphocytes # 0.5 K/mcL (0.6-4.6); Lymphocytes % 6.6 %; Mean Corpuscular HGB Conc 31.8 g/dL (31.6-35.5); Mean Corpuscular Hemoglobin 27.2 pg (28.0-33.3); Mean Corpuscular Volume 85.4 fL (83.0-100.0); Mean Platelet Volume 8.8 fL (9.4-12.4); Monocytes # 0.8 K/mcL (0.0-1.3); Monocytes % 10.1 %; Neutrophils # 6.6 K/mcL (1.6-8.9); Platelet Count 215 K/mcL (140-400); Red Blood Count 3.64 M/mcL (3.82-4.97); Red Cell Distribution Width 16.1 % (11.5-14.5); Segmented Neutrophils % 82.1 %
[2016-09-04 04:10] LABS: Hemoglobin 9.9 g/dL (11.5-15.4)
[2016-09-04 04:20] LABS: BUN/Creatinine Ratio 20 (6-26); Blood Urea Nitrogen 16 mg/dL (7-20); Calcium 8.8 mg/dL (8.6-10.8); Carbon Dioxide 28 mEq/L (19-29); Chloride 101 mEq/L (98-109); Glucose 127 mg/dL (70-99); Magnesium 1.7 mg/dL (1.6-2.6); Osmolality,Calculated 291 (280-300); Phosphorous 2.9 mg/dL (2.3-4.7); Potassium 3.7 mEq/L (3.5-4.5); Sodium 139 mEq/L (136-145); eGFR For African Americans > 60 (> 60); eGFR For Non-African Americans > 60 (> 60)
[2016-09-04] MEDS: Magnesium Sulfate 2 GM in D5% in Water 100 ML IVPB PRN (06:20)
--- NOTE | 2016-09-04 06:44 | Pulmonology Progress Note ---
Date of Encounter: 09/04/16 Time of Encounter: 06:44 Assessment and Plan (1) Acute postprocedural respiratory failure Current Visit: Yes Status: Acute developed hypoxia during bronchoscopy 09/03 baseline poor respiratory reserve exacerbated by sedation she has underlying malignancy, pleural effusion and PE patient was intubated to protect airway and improve oxygenation/ventilation Propofol for sedation and Fentanyl pushes remains on minimal vent settings will CPAP trial today and anticipate extubation later - await goals of care discussion with family regarding reintubation - patient endorses wishes to not reintubate as she is fully awake and alert, code status changed to DNRCC-A DNI EXTUBATED 09/04 at 1050 to nasal cannula (2) Squamous cell carcinoma lung Current Visit: No Status: 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 Cuevas and Dr. Qiu heme/onc consulted - discussion with family that recurrent malignancy treatments are limited and overall prognosis poor unclear if she is a candidate for further palliative chemo/radiation - hospice would be appropriate if not a candidate Qualifiers: Laterality: right Qualified Code(s): C34.91 - Malignant neoplasm of unspecified part of right bronchus or lung (3) Hemoptysis Current Visit: Yes Status: Acute likely multifactorial from endocbronchial tumor and anticoagulation for PE bronchoscopy (09/03) revealed completely obstructing mass found proximally in the bronchus intermedius, mass was bloody and endobronchial OG in place, 90 output INR 2.0 hemoglobin stable 9.9 (10.5) (4) SIRS (systemic inflammatory response syndrome) Current Visit: Yes Status: Acute meets SIRS criteria with tachycardia and fever fever yesterday 101.1 with warming blanket on - possible atelectasis - treated with Ofirmev for pain and fever WBC downtrended 8.1 (8.7) afebrile overnight since blanket off - will continue to monitor - if spikes another fever will panculture and treat (5) Pulmonary embolism Current Visit: No Status: Acute Xarelto on hold due to hemoptysis small RLL embolus noted on CT Chest 08/19 recent CTA chest 09/02 shows no increase clot burden heme/onc consulted and appreciated - continue to hold AC due to hemoptysis Qualifiers: Pulmonary embolism type: other Chronicity: acute Acute cor pulmonale presence: without acute cor pulmonale Qualified Code(s): I26.99 - Other pulmonary embolism without acute cor pulmonale (6) Pleural effusion Current Visit: No Status: Acute CTA Chest 09/02 reveals small right pleural effusion that has increased in size suspect likely from right collapsed lung and malignant exudate from known squamous cell lung carcinoma or PE thoracentesis from prior admission with minimal fluid if worsens or signs of infection may consider another thoracentesis (7) COPD (chronic obstructive pulmonary disease) Current Visit: No Status: Acute respiratory status likely secondary to sedative continue duonebs no wheezing on exam Qualifiers: COPD type: unspecified COPD Qualified Code(s): J44.9 - Chronic obstructive pulmonary disease, unspecified (8) Abnormal CT scan, chest Current Visit: Yes Status: Acute CTA chest 09/02 reveals endobronchial mass in the right mainstem bronchus with possible mucous plugging bronchoscopy performed 09/03 (9) Constipation Current Visit: Yes Status: Acute patient complains of abdominal pain and endorses the need to have a BM colace added to bowel regimen abdomen is more firm than yesterday with normal bowel sounds Qualifiers: Constipation type: unspecified constipation type Qualified Code(s): K59.00 - Constipation, unspecified (10) Goals of care, counseling/discussion Current Visit: Yes Status: Acute discussed with family yesterday, code status changed to DNRCC-A will further discuss with POA, Altagracia, as well as family regarding reintubation and trach - POA present at bedside, agrees with patient that code status changed to DNRCC- A DNI - discussion with Dr. Hinson, myself, POA, and patient, agree that patient would not like to be reintubated or trach dependent as that does not fall in line with wishes consult Palliative care as she is hospice appropriate (11) DVT prophylaxis Current Visit: No Status: Acute EPCDs as AC contraindicated due to hemoptysis Subjective Principal diagnosis: dyspnea, hemptysis Interval history: No major events overnight. Patient seen and examined at bedside. She is currently intubated and lightly sedated on Propofol. She opens her eyes and follows simple commands. She admits to some abdominal pain. She nods her head yes when asked if she needs a bowel movement. She denies any chest pain or any other pain when asked by shaking her head no. Objective PUL Vital signs: Last Vital Signs Temp 98.7 F 05/25/17 05:13 Pulse 114 09/04/16 04:00 Resp 14 09/04/16 05:56 BP 97/63 09/04/16 05:56 Pulse Ox 100 09/04/16 05:56 General appearance: no acute distress, alert Eyes: nonicteric, other (PERRL) ENT: other (endotracheal intubation) Neck: supple Effort: other (mechanically ventilated) Auscultation: right: diminished breath sounds, bilateral: clear Cardiovascular: regular rate and rhythm Gastrointestinal: normoactive bowel sounds, soft, tender (diffuse) Integumentary: normal Extremities: no cyanosis, no edema, no clubbing Musculoskeletal: no deformities, ROM normal normal mental status, non-focal exam, pupils equal and round Ventilator Settings Ventilator Settings: Ventilator Settings, Last 8 Hours Ventilator Mode A/C Ventilator Mode A/C Ventilator Mode A/C Ventilator Mode A/C Ventilator Mode A/C Ventilator Mode A/C Ventilator Mode A/C Ventilator Mode A/C Ventilator Mode A/C Ventilator Tidal Volume 450 Setting Ventilator Tidal Volume 394 Setting Ventilator Tidal Volume 394 Setting Ventilator Tidal Volume 450 Setting Ventilator Tidal Volume 450 Setting Ventilator Tidal Volume 450 Setting Ventilator Tidal Volume 450 Setting Ventilator Tidal Volume 450 Setting Ventilator Tidal Volume 450 Setting Ventilator Respiratory Rate 14 Setting Ventilator Respiratory Rate 14 Setting Ventilator Respiratory Rate 14 Setting Ventilator Respiratory Rate 14 Setting Ventilator Respiratory Rate 14 Setting Ventilator Respiratory Rate 14 Setting Ventilator Respiratory Rate 14 Setting Ventilator Respiratory Rate 14 Setting Ventilator Respiratory Rate 14 Setting Actual Respiratory Rate 14 Actual Respiratory Rate 14 Actual Respiratory Rate 14 Actual Respiratory Rate 14 Actual Respiratory Rate 14 Actual Respiratory Rate 14 Actual Respiratory Rate 14 Actual Respiratory Rate 14 Actual Respiratory Rate 14 Positive End Expiratory 5 Pressure Positive End Expiratory 5 Pressure Positive End Expiratory 5 Pressure Positive End Expiratory 5 Pressure Positive End Expiratory 5 Pressure Positive End Expiratory 5 Pressure Positive End Expiratory 5 Pressure Positive End Expiratory 5 Pressure Positive End Expiratory 5 Pressure Peak Inspiratory Airway 30 Pressure Peak Inspiratory Airway 32 Pressure Peak Inspiratory Airway 32 Pressure Peak Inspiratory Airway 29 Pressure Peak Inspiratory Airway 31 Pressure Peak Inspiratory Airway 30 Pressure Peak Inspiratory Airway 30 Pressure Peak Inspiratory Airway 33 Pressure Peak Inspiratory Airway 30 Pressure Results - Laboratory Findings CBC and BMP: 09/04/16 03:52 09/04/16 03:52 PT/INR, D-dimer PT 21.9 Seconds (9.4-12.1) H 09/03/16 04:00 Abnormal lab findings: Abnormal lab results RBC 3.64 M/mcL (3.82-4.97) L 09/04/16 03:52 Hgb 9.9 g/dL (11.5-15.4) L 09/04/16 03:52 Hct 31.1 % (35.3-44.9) L 09/04/16 03:52 MCH 27.2 pg (28.0-33.3) L 09/04/16 03:52 RDW 16.1 % (11.5-14.5) H 09/04/16 03:52 MPV 8.8 fL (9.4-12.4) L 09/04/16 03:52 Lymphocytes # 0.5 K/mcL (0.6-4.6) L 09/04/16 03:52 PT 21.9 Seconds (9.4-12.1) H 09/03/16 04:00 APTT 55.6 Seconds (26.0-36.0) H 09/03/16 04:00 Glucose 127 mg/dL (70-99) H 09/04/16 03:52 POC Glucose 144 (58-89) H 09/04/16 05:44 Creatine Kinase 178 Units/L (29-168) H 09/02/16 09:50 B-Natriuretic Peptide 123 pg/mL (0-100) H 09/02/16 09:50 Albumin 2.7 g/dL (3.5-5.0) L 09/03/16 03:33 Globulin 4.0 g/dL (2.4-3.5) H 09/03/16 03:33 Albumin/Globulin Ratio 0.7 (1.1-2.2) L 09/03/16 03:33 - Clinical Findings Intake & Output: Intake & Output 09/03/16 09/03/16 09/04/16 15:59 23:59 07:59 Intake Total 404 / 404 296 / 296 100 / 100 Output Total 0 / 0 300 / 300 965 / 965 Balance 404 / 404 -4 / -4 -865 / -865 - VTE Documentation of Mechanical Device: Intermittent pneumatic compression device Consult Discharge Plan - Plan Referrals: Frank Barboza MD [Primary Care Provider] -
[2016-09-04] MEDS: Budesonide/Formoterol 80/4.5 MDI IH SCH (08:14)
[2016-09-04] MEDS ORDERED: Docusate Oral Soln 100 MG/10 ML UDC PO SCH (09:00)
[2016-09-04] MEDS ORDERED: Cholecalciferol (D-3) 1,000 UNIT TABLET PO SCH (09:00)
[2016-09-04] MEDS: Chlorhexidine Rinse 15 ML MOUTHWASH MM SCH (09:39)
--- NOTE | 2016-09-04 10:38 | Oncology Inp Progress Note ---
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 Qualifiers: Laterality: right Qualified Code(s): C34.91 - Malignant neoplasm of unspecified part of right bronchus or lung Oncology: Subj Interval history: Patient seen and examined. Patient has been extubated this morning, when I spoke to her in ICU patient was awake and able to conversation, she was complaining of slight sore throat but otherwise denies any pain or complaints. - Constitutional Vitals: Vital Signs Temp Pulse Resp BP Pulse Ox 09/04/16 09:19 22 103/67 100 09/04/16 09:00 115 23 107/67 99 09/04/16 08:10 19 90/63 94 09/04/16 08:00 99.5 F 110 19 90/63 94 09/04/16 07:00 108 16 83/61 100 09/04/16 06:00 113 14 90/63 09/04/16 05:56 14 97/63 100 09/04/16 05:13 98.7 F 09/04/16 04:00 114 14 107/70 100 09/04/16 03:46 14 90/60 100 09/04/16 02:00 105 14 89/54 09/04/16 01:39 14 86/55 99 09/04/16 01:24 98.3 F 09/04/16 01:00 108 14 89/57 98 09/04/16 00:00 95 14 95/70 100 09/03/16 23:59 14 85/56 98 09/03/16 23:00 92 14 88/57 09/03/16 22:00 98 14 86/56 09/03/16 21:35 14 86/56 98 09/03/16 19:55 18 83/50 98 09/03/16 18:00 105 14 98/57 99 09/03/16 17:45 24 95/61 97 09/03/16 17:00 108 14 95/61 98 09/03/16 16:30 14 95/67 100 09/03/16 16:19 101.1 F H 09/03/16 16:00 102 16 98/63 100 09/03/16 15:56 102 09/03/16 15:00 98 16 96/66 100 09/03/16 14:00 99.3 F 98 14 90/61 100 09/03/16 13:05 16 96/66 100 09/03/16 13:00 108 16 99/66 100 09/03/16 12:30 102 09/03/16 12:02 99.3 F 128 30 138/75 100 09/03/16 11:45 112 113/70 99 09/03/16 11:38 116 14 113/73 99 09/03/16 11:33 116 14 131/86 92 09/03/16 11:28 120 16 105/64 98 09/03/16 11:23 110 16 100/71 90 09/03/16 11:00 98.7 F 100 20 111/69 95 Intake and Output 09/03/16 09/04/16 09/04/16 23:59 07:59 15:59 Intake Total 296 / 296 100 / 100 134 / 134 Output Total 300 / 300 965 / 965 100 / 100 Balance -4 / -4 -865 / -865 34 / 34 Intake: IV Fluids 296 / 296 100 / 100 134 / 134 Diprivan 1,000 mg In 100 196 / 196 100 / 100 30 / 30 ml @ 5 MCG/KG/MIN 2.164 mls/hr IVC .Q24H [facility] Rx#: [id number] Ofirmev 1,000 mg/100 ml 1 100 / 100 ,000 mg In 100 ml @ 400 mls/hr IVPB ONCE ONE Rx#: [id number] Magnesium Sulfate 2 GM In 104 / 104 Dextrose 5% 100 ML @ 50 mls/hr IVPB Q6H PRN Rx#: [id number] Oral 0 / 0 Output: Catheter 300 / 300 875 / 875 100 / 100 Gastric Drainage 90 / 90 Other: Blood Glucose* 101 144 General appearance: average body habitus, cooperative, no acute distress - Respiratory Respiratory exam: Present: decreased breath sounds (Diffusedly). Absent: chest wall tenderness, rales, rhonchi, wheezes - Cardiovascular Cardiovascular exam: Present: RRR, +S1, +S2. Absent: clicks, diastolic murmur, rubs, systolic murmur - GI/Abdominal GI/Abdominal exam: Present: normal bowel sounds, soft. Absent: distended, firm , guarding, rebound, rigid, tenderness - Extremities Exam Extremities exam: Present: normal inspection. Absent: calf tenderness, tenderness Oncology: Obj Data - Labs CBC & Chem 7: 09/04/16 03:52 09/04/16 11:11 Labs: Laboratory Results - last 24 hr 09/03/16 09/03/16 09/03/16 04:56 12:32 17:53 WBC RBC Hgb Hct MCV MCH MCHC RDW Plt Count MPV Immature Gran % Seg Neutrophils % Lymphocytes % Monocytes % Eosinophils % Basophils % Neutrophils # Lymphocytes # Monocytes # Eosinophils # Basophils # Sodium Potassium Chloride Carbon Dioxide BUN Creatinine Est GFR ( Amer) Est GFR (Non-Af Amer) BUN/Creatinine Ratio Glucose POC Glucose 119 H 114 H 101 H Calculated Osmolality Calcium Phosphorus Magnesium 09/04/16 09/04/16 09/04/16 00:58 03:52 03:52 WBC 8.1 RBC 3.64 L Hgb 9.9 L Hct 31.1 L MCV 85.4 MCH 27.2 L MCHC 31.8 RDW 16.1 H Plt Count 215 MPV 8.8 L Immature Gran % 0.7 Seg Neutrophils % 82.1 Lymphocytes % 6.6 Monocytes % 10.1 Eosinophils % 0.4 Basophils % 0.1 Neutrophils # 6.6 Lymphocytes # 0.5 L Monocytes # 0.8 Eosinophils # 0.0 Basophils # 0.0 Sodium 139 Potassium 3.7 Chloride 101 Carbon Dioxide 28 BUN 16 Creatinine 0.81 Est GFR ( Amer) > 60 Est GFR (Non-Af Amer) > 60 BUN/Creatinine Ratio 20 Glucose 127 H POC Glucose 122 H Calculated Osmolality 291 Calcium 8.8 Phosphorus 2.9 Magnesium 1.7 09/04/16 05:44 WBC RBC Hgb Hct MCV MCH MCHC RDW Plt Count MPV Immature Gran % Seg Neutrophils % Lymphocytes % Monocytes % Eosinophils % Basophils % Neutrophils # Lymphocytes # Monocytes # Eosinophils # Basophils # Sodium Potassium Chloride Carbon Dioxide BUN Creatinine Est GFR ( Amer) Est GFR (Non-Af Amer) BUN/Creatinine Ratio Glucose POC Glucose 144 H Calculated Osmolality Calcium Phosphorus Magnesium - Impressions Impressions Chest X-Ray 09/03/16 12:37 IMPRESSION: Interval placement of endotracheal tube in satisfactory position. NG tube extends below the field of view. Otherwise stable chest. D/ / Marcial Rowley MD / Marcial Rowley MD Interpreting Provider: Marcial Rowley MD X-Ray 09/03/16 12:37 IMPRESSION: Gastric tube terminates near the junction of the gastric fundus body with the sideport in the fundus just below the gastroesophageal junction. D/ / Tin David MD / Tin David MD Interpreting Provider: Tin David MD - ABG Interpretation ABG results: PT/INR, D-dimer PT 21.9 Seconds (9.4-12.1) H 09/03/16 04:00 Consult Discharge Plan - Plan Referrals: Frank Barboza MD [Primary Care Provider] - <Edward Berrios - Last Filed: 09/04/16 17:39> Date of Encounter: 09/04/16 (1) Squamous cell carcinoma lung Current Visit: No Status: Chronic Assessment and plan: PAtient was seen, examined by me with family bedside. She is awake but in pain, s/p norco half hr ago. Has pain in the rt lateral chest and rt abdomen. Discussed bronch findings and further treatment based on recurrent disease and goals of such treatment. She understood risk benefits of treatment with immunotherapy which she "may" take but undecided. No further treatment and hospice if pain not controlled and if performace status is poor. Morphine one dose for pain/prn. Plan discussed with family in detail I have read and agree with history physical exam findings, assessment and plan as outlined above in Dr Melody Molina's dictation. Qualifiers: Laterality: right Qualified Code(s): C34.91 - Malignant neoplasm of unspecified part of right bronchus or lung - Constitutional Vitals: Vital Signs Temp Pulse Resp BP Pulse Ox 09/04/16 17:24 100.8 F H 09/04/16 16:00 117 20 86/60 96 09/04/16 15:56 16 100 09/04/16 15:00 115 20 89/60 99 09/04/16 14:00 98.9 F 110 16 94/65 96 09/04/16 13:00 118 18 83/64 97 09/04/16 12:00 117 20 92/65 97 09/04/16 11:51 100.3 F H 09/04/16 11:49 20 96 09/04/16 11:18 118 09/04/16 11:00 118 24 102/65 100 09/04/16 10:00 113 22 100/59 100 09/04/16 09:19 22 103/67 100 09/04/16 09:00 115 23 107/67 99 09/04/16 08:10 19 90/63 94 09/04/16 08:00 99.5 F 110 19 90/63 94 09/04/16 07:00 108 16 83/61 100 09/04/16 06:00 113 14 90/63 09/04/16 05:56 14 97/63 100 09/04/16 05:13 98.7 F 09/04/16 04:00 114 14 107/70 100 09/04/16 03:46 14 90/60 100 09/04/16 02:00 105 14 89/54 09/04/16 01:39 14 86/55 99 09/04/16 01:24 98.3 F 09/04/16 01:00 108 14 89/57 98 09/04/16 00:00 95 14 95/70 100 09/03/16 23:59 14 85/56 98 09/03/16 23:00 92 14 88/57 09/03/16 22:00 98 14 86/56 09/03/16 21:35 14 86/56 98 09/03/16 19:55 18 83/50 98 09/03/16 18:00 105 14 98/57 99 05/24/17 17:45 24 95/61 97 Intake and Output 09/04/16 09/04/16 09/04/16 07:59 15:59 23:59 Intake Total 100 / 100 134 / 134 Output Total 965 / 965 250 / 250 200 / 200 Balance -865 / -865 -116 / -116 -200 / -200 Intake: IV Fluids 100 / 100 134 / 134 Diprivan 1,000 mg In 100 100 / 100 30 / 30 ml @ 5 MCG/KG/MIN 2.164 mls/hr IVC .Q24H [facility] Rx#: [id number] Magnesium Sulfate 2 GM In 104 / 104 Dextrose 5% 100 ML @ 50 mls/hr IVPB Q6H PRN Rx#: [id number] Oral 0 / 0 Output: Catheter 875 / 875 100 / 100 200 / 200 Gastric Drainage 90 / 90 150 / 150 Other: Blood Glucose* 144 163 Oncology: Obj Data - Labs CBC & Chem 7: 09/04/16 03:52 09/04/16 11:11 Labs: Laboratory Results - last 24 hr 09/03/16 09/04/16 09/04/16 17:53 00:58 03:52 WBC 8.1 RBC 3.64 L Hgb 9.9 L Hct 31.1 L MCV 85.4 MCH 27.2 L MCHC 31.8 RDW 16.1 H Plt Count 215 MPV 8.8 L Immature Gran % 0.7 Seg Neutrophils % 82.1 Lymphocytes % 6.6 Monocytes % 10.1 Eosinophils % 0.4 Basophils % 0.1 Neutrophils # 6.6 Lymphocytes # 0.5 L Monocytes # 0.8 Eosinophils # 0.0 Basophils # 0.0 Sodium Potassium Chloride Carbon Dioxide BUN Creatinine Est GFR ( Amer) Est GFR (Non-Af Amer) BUN/Creatinine Ratio Glucose POC Glucose 101 H 122 H Calculated Osmolality Calcium Ionized Calcium Phosphorus Magnesium Urine Color Urine Clarity Urine pH Ur Specific [place] Urine Protein Urine Glucose (UA) Urine Ketones Urine Blood Urine Nitrite Urine Bilirubin Urine Urobilinogen Ur Leukocyte Esterase Urine Microscopic RBC Urine Microscopic WBC Ur Squamous Epith Cells Uric Acid Crystals Amorphous Sediment Urine Bacteria Hyaline Casts 09/04/16 09/04/16 09/04/16 03:52 05:44 11:11 WBC RBC Hgb Hct MCV MCH MCHC RDW Plt Count MPV Immature Gran % Seg Neutrophils % Lymphocytes % Monocytes % Eosinophils % Basophils % Neutrophils # Lymphocytes # Monocytes # Eosinophils # Basophils # Sodium 139 Potassium 3.7 3.7 Chloride 101 Carbon Dioxide 28 BUN 16 Creatinine 0.81 Est GFR ( Amer) > 60 Est GFR (Non-Af Amer) > 60 BUN/Creatinine Ratio 20 Glucose 127 H POC Glucose 144 H Calculated Osmolality 291 Calcium 8.8 Ionized Calcium 1.08 L Phosphorus 2.9 2.9 Magnesium 1.7 2.5 Urine Color Urine Clarity Urine pH Ur Specific [place] Urine Protein Urine Glucose (UA) Urine Ketones Urine Blood Urine Nitrite Urine Bilirubin Urine Urobilinogen Ur Leukocyte Esterase Urine Microscopic RBC Urine Microscopic WBC Ur Squamous Epith Cells Uric Acid Crystals Amorphous Sediment Urine Bacteria Hyaline Casts 09/04/16 09/04/16 11:38 14:51 WBC RBC Hgb Hct MCV MCH MCHC RDW Plt Count MPV Immature Gran % Seg Neutrophils % Lymphocytes % Monocytes % Eosinophils % Basophils % Neutrophils # Lymphocytes # Monocytes # Eosinophils # Basophils # Sodium Potassium Chloride Carbon Dioxide BUN Creatinine Est GFR ( Amer) Est GFR (Non-Af Amer) BUN/Creatinine Ratio Glucose POC Glucose 163 H Calculated Osmolality Calcium Ionized Calcium Phosphorus Magnesium Urine Color Dark Yellow Urine Clarity Turbid A Urine pH 5.5 Ur Specific [place] > 1.030 H Urine Protein 100 H Urine Glucose (UA) Normal Urine Ketones Trace H Urine Blood Large H Urine Nitrite Negative Urine Bilirubin Small H Urine Urobilinogen Normal Ur Leukocyte Esterase Small H Urine Microscopic RBC TNTC H Urine Microscopic WBC 5-15 H Ur Squamous Epith Cells Few Uric Acid Crystals Present Amorphous Sediment Many H Urine Bacteria Moderate H Hyaline Casts Few - ABG Interpretation ABG results: PT/INR, D-dimer PT 21.9 Seconds (9.4-12.1) H 09/03/16 04:00
[2016-09-04 11:15] LABS: Ionized Calcium 1.08 mmol/L (1.15-1.35)
--- NOTE | 2016-09-04 11:40 | Palliative - Consult Note ---
Date of Encounter: 09/04/16 Time of Encounter: 10:45 - Assessment and Plan (1) Pulmonary embolism Current Visit: No Status: Acute Assessment and plan: She diagnosed on 2016 the patient is on his Route toe however now having mopped phthisis. Plan is per the hospitalist and pulmonary team. Qualifiers: Pulmonary embolism type: other Chronicity: acute Acute cor pulmonale presence: without acute cor pulmonale Qualified Code(s): I26.99 - Other pulmonary embolism without acute cor pulmonale (2) Hemoptysis Current Visit: Yes Status: Acute (3) Goals of care, counseling/discussion Current Visit: Yes Status: Acute Assessment and plan: Agent has opted for DNR CCA, DNI status. I discussed with patient and family their options with regard to hospice. They are considering these options as they weigh possibility of further immune therapy with oncology. (4) Squamous cell carcinoma lung Current Visit: No Status: Chronic Assessment and plan: The patient is being followed by jennifer Luna. He has stage IIIa squamous cell carcinoma the lung status post chemoradiation and recurrence on cross I with hemoptysis. He is considering the possibility of immune therapy. That will be discussed further with jennifer Luna. The patient opts not to pursue it. The patient would certainly be hospice eligible. Qualifiers: Laterality: right Qualified Code(s): C34.91 - Malignant neoplasm of unspecified part of right bronchus or lung Palliative-CN HPI - Data of Consult Patient: new to practice Requesting Physician: Peter Garcia MD Primary Care Provider: Frank Barboza MD - Consult Narrative Palliative Care/Comfort Measures: Palliative care Reason for consult: goals of care History of present illness: Ms. Paul is a 76 year old female With a history of COPD, lung cancer and recent pulmonary embolism. She initially presented with increasing shortness of breath and hemoptysis. She was found to have a right pleural effusion and a brachial mass with possible mucus plugging. He was then admitted for pulmonary consultation. He had been short of breath ever since her Eliu embolus was discovered. He also has right rib pain. Pain is very pleuritic rates 5/10's with inspiration better with getting shallow and not moving. He is on oxygen at home. Completed IMO and radiation for her stage IIIa squamous cell carcinoma the lung. Was intubated after the bronchoscopy. Coagulation was held due to the bleeding that she was having. She has now been extubated patient states that she does not wish to be reintubated. Per the oncology note the family understands treatment options for the recurrent malignancy are quite limited and the overall prognosis is quite poor. However they are waiting to hear about the possibility of immune therapy. Review of care is consulted guarding questions regarding hospice, as well as changing to follow along with probable terminal cancer. CC: Peter Garcia MD hemptysis Past Med Surg Social Fam HX - Past Medical History Medical history: arthritis, asthma, cancer, COPD, DVT, glaucoma, hyperlipidemia , hypertension Psychiatric history: no psych history - Past Surgical History Surgical History: appendectomy, hysterectomy, orthopedic, other - Social History Smoking Status: Former smoker Smokeless Tobacco Status: No Alcohol use: none Drug use: none - Family History Father Living Status: Age at : 64 Cause of : Heart and lung problems Hx Family Cardiac Disorders: Yes Hx Family Respiratory Disorders: Yes Hx Family Cancer: Yes (Breast, lymph nodes, cervical) Hx Family GI Disorders: No Hx Family Genitourinary Disorders: No Hx Family Endocrine Disorder: Yes (Diabetes) Hx Family Musculoskeletal Disorders: No Hx Family Neuromuscular Disorders: No Hx Family Neurologic Disorders: No (nerve and muscle problems) Hx Family HEENT Disorders: No Hx Family Autoimmune Disorders: No Hx Family Reproductive Disorders: No Hx Family Psychosocial Disorders: No Hx Family Medical Disorders: No Medications and Allergies Albuterol Sulfate [Proair Hfa] 2 puff PO Q4H PRN 10/03/15 [History] Alendronate Sodium [Fosamax] 70 mg PO QWEEK MDD thursday10/03/15 [History] Calcium Carbonate [Calcium] 500 mg PO DAILY 10/03/15 [History] Cholecalciferol (Vitamin D3) [Vitamin D3] 5,000 unit PO DAILY 10/03/15 [History] Cyanocobalamin (Vitamin B-12) [Vitamin B-12] 1,000 mcg SL DAILY 10/03/15 [ History] Fluticasone/Salmeterol [Advair 250-50 Diskus] 1 puff IH BID 10/03/15 [History] Gluc/[place]-MSM#1/C/Maciej/Paulie/Bor [Osteo Bi-Flex Caplet] 1 tab PO DAILY 10/03/15 [ History] Oxygen 4 l NS HS 10/03/15 [History] Simvastatin [Zocor] 20 mg PO HS 10/03/15 [History] Tiotropium [Spiriva] 1 puff IH DAILY 10/03/15 [History] Torsemide [Demadex] 10 - 20 mg PO DAILY 10/03/15 [History] Omeprazole [PriLOSEC] 40 mg PO DAILY #30 cap 08/07/16 [Rx] Gabapentin [Neurontin] 300 mg PO HS #30 capsule 08/14/16 [Rx] Zolpidem [Ambien] 10 mg PO HS #30 tablet 08/14/16 [Rx] Rivaroxaban [Xarelto] 15 mg PO BID 21 Days 08/22/16 [Rx] GuaiFENesin/Codeine [Robitussin w/Codeine] 5 ml PO Q6HR PRN #250 liquid [Rx] HYDROcodone/Acet 7.5/325 mg [[place] 7.5-325 mg] 1 tab PO Q6H #120 tablet [Rx] Rivaroxaban [Xarelto] 20 mg PO DAILY #30 tablet 08/29/16 [Rx] Pantoprazole Sodium [Protonix] 40 mg PO DAILY 09/02/16 [History] Allergies ampicillin Allergy (Verified 07/31/16 11:36) Hives diltiazem [From Cardizem] Allergy (Verified 07/31/16 11:36) Hives aspirin Adverse Reaction (Verified 07/31/16 11:36) Nausea Oxycodone [From Percocet] Adverse Reaction (Verified 08/19/16 11:37) Nausea ROS unobtainable: other (Patient just extubated, does not feel like talking enough to give a review of systems at this time.) Palliative Care-Exam - Constitutional Vitals: Temp Pulse Resp BP Pulse Ox 99.5 F 118 24 102/65 100 09/04/16 08:00 09/04/16 11:18 09/04/16 11:00 09/04/16 11:00 09/04/16 11:00 General appearance: Present: no acute distress - Head Head Exam: Present: atraumatic, normal inspection - Eye Eye exam: Present: EOMI, normal appearance - ENT ENT exam: Present: mucous membranes moist - Neck Neck exam: Present: normal inspection - Respiratory Respiratory exam: Present: decreased breath sounds - Cardiovascular Cardiovascular exam: Present: RRR, tachycardia - GI/Abdominal Exam GI/Abdominal exam: Present: normal bowel sounds, soft, tenderness - Catheter Type: Urethral (Cassidy) - Neurological Exam Neurological exam: Present: alert - Psychiatric Psychiatric exam: Present: normal affect, normal mood. Absent: agitated, anxious - Skin Skin exam: Present: dry, warm Internal Medicine - CN: Reslt - Labs CBC & Chem 7: 09/04/16 03:52 09/04/16 03:52 Labs: Short CBC 09/04/16 Range/Units 03:52 WBC 8.1 (4.3-11.1) K/mcL Hgb 9.9 L (11.5-15.4) g/dL Hct 31.1 L (35.3-44.9) % Plt Count 215 (140-400) K/mcL Neutrophils # 6.6 (1.6-8.9) K/mcL BMP 09/04/16 03:52 Sodium 139 Potassium 3.7 Chloride 101 Carbon Dioxide 28 BUN 16 Creatinine 0.81 Glucose 127 H Calcium 8.8 - ABG Interpretation ABG results: PT/INR, D-dimer PT 21.9 Seconds (9.4-12.1) H 09/03/16 04:00 - Impressions Impressions Chest X-Ray 09/03/16 12:37 IMPRESSION: Interval placement of endotracheal tube in satisfactory position. NG tube extends below the field of view. Otherwise stable chest. D/ / Marcial Rowley MD / Marcial Rowley MD Interpreting Provider: Marcial Rowley MD X-Ray 09/03/16 12:37 IMPRESSION: Gastric tube terminates near the junction of the gastric fundus body with the sideport in the fundus just below the gastroesophageal junction. D/ / Tin David MD / Tin David MD Interpreting Provider: Tin David MD Consult Discharge Plan - Plan Referrals: Frank Barboza MD [Primary Care Provider] - Palliative Quality Palliative Quality: Screen for Code Status: Yes, Screen for Goals of Care: Yes, Screen for Pain: Yes, If Pain Regimen Started, Initiate Bowel Regimen: Yes, Screen for Nausea/Vomitting: Yes Code Status: 09/03/16 15:56 Resuscitation Status: Active [RES] Routine Comment: Resuscitation Status: DNR-Comfort Care-Arrest 09/04/16 09:28 Resuscitation Status: Active [RES] Routine Comment: Resuscitation Status: [id number]
[2016-09-04 13:13] LABS: Magnesium 2.5 mg/dL (1.6-2.6); Phosphorous 2.9 mg/dL (2.3-4.7); Potassium 3.7 mEq/L (3.5-4.5)
[2016-09-04] MEDS: Cyanocobalamin (B-12) 1,000 MCG TABLET PO SCH (13:58)
[2016-09-04] MEDS ORDERED: Acetaminophen 325 MG TABLET PO PRN (16:01)
[2016-09-04 16:24] LABS: Bilirubin,Urine Small (Negative); Blood,Urine Large (Negative); Clarity,Urine Turbid (Clear); Color,Urine Dark Yellow (Yellow); Glucose,Urine (UA) Normal (Normal); Ketones,Urine Trace mg/dL (Negative); Leukocyte Esterase,Urine Small (Negative); Nitrite,Urine Negative (Negative); PH,Urine 5.5 pH Units (5.0-8.0); Protein,Urine 100 mg/dL (Neg-Trace); Specific Gravity,Urine > 1.030 (1.010-1.025); Urobilinogen,Urine Normal (Normal)
[2016-09-04 16:34] LABS: Uric Acid Crystals,Urine Present
[2016-09-04 16:35] LABS: Hyaline Casts,Urine Few per lpf (None-Few); RBC,Urine TNTC per hpf (0-3)
[2016-09-04 16:36] LABS: Amorphous Sediment,Urine Many (Few); Squamous Epithelial Cell,Urine Few per lpf (None-Few)
[2016-09-04 16:38] LABS: Bacteria,Urine Moderate per hpf (None-Few)
[2016-09-04] MEDS: *HR* HYDROcodone/Acet 7.5/325 mg TABLET PO PRN (16:46)
[2016-09-04] MEDS: *HR* Morphine 2 MG/ML SYRINGE IVP PRN ×2 (18:33→22:11)
[2016-09-04] MEDS: Levalbuterol Neb 0.63 MG/3 ML IH SCH ×2 (19:39→21:26)
[2016-09-04] MEDS: Calcium Gluconate 1,000 MG in D5% in Water 100 ML IVPB PRN (19:47)
[2016-09-04] MEDS: Gabapentin 300 MG CAPSULE PO SCH (20:36)
[2016-09-05] MEDS: *HR* HYDROcodone/Acet 7.5/325 mg TABLET PO PRN ×2 (02:19→12:52)
[2016-09-05] MEDS: Ipratropium/Albuterol Neb 3 ML IH SCH ×2 (03:13→03:16)
[2016-09-05] MEDS: Levalbuterol Neb 0.63 MG/3 ML IH SCH ×4 (03:22→21:36)
[2016-09-05 03:56] LABS: Basophils % 0.1 %; Eosinophils # 0.1 K/mcL (0.0-0.6); Eosinophils % 0.6 %; Hematocrit 27.5 % (35.3-44.9); Immature Granulocytes % 0.4 % (0-4); Lymphocytes # 0.5 K/mcL (0.6-4.6); Lymphocytes % 5.8 %; Mean Corpuscular HGB Conc 32.7 g/dL (31.6-35.5); Mean Corpuscular Hemoglobin 27.8 pg (28.0-33.3); Mean Corpuscular Volume 84.9 fL (83.0-100.0); Mean Platelet Volume 8.8 fL (9.4-12.4); Monocytes # 0.8 K/mcL (0.0-1.3); Monocytes % 9.6 %; Neutrophils # 7.1 K/mcL (1.6-8.9); Platelet Count 226 K/mcL (140-400); Red Blood Count 3.24 M/mcL (3.82-4.97); Red Cell Distribution Width 16.4 % (11.5-14.5); Segmented Neutrophils % 83.5 %
[2016-09-05 04:07] LABS: BUN/Creatinine Ratio 15 (6-26); Blood Urea Nitrogen 11 mg/dL (7-20); Calcium 8.3 mg/dL (8.6-10.8); Carbon Dioxide 26 mEq/L (19-29); Chloride 99 mEq/L (98-109); Glucose 96 mg/dL (70-99); Magnesium 1.7 mg/dL (1.6-2.6); Osmolality,Calculated 277 (280-300); Phosphorous 2.4 mg/dL (2.3-4.7); Potassium 4.7 mEq/L (3.5-4.5); Sodium 134 mEq/L (136-145); eGFR For African Americans > 60 (> 60); eGFR For Non-African Americans > 60 (> 60)
[2016-09-05] MEDS: Calcium Gluconate 1,000 MG in D5% in Water 100 ML IVPB PRN (05:11)
[2016-09-05] MEDS: Magnesium Sulfate 2 GM in D5% in Water 100 ML IVPB PRN (05:12)
--- NOTE | 2016-09-05 06:58 | Pulmonology Progress Note ---
Date of Encounter: 09/05/16 Time of Encounter: 06:58 Assessment and Plan (1) Acute postprocedural respiratory failure Current Visit: Yes Status: Acute developed hypoxia during bronchoscopy 09/03 requiring intubation extubated 09/04 96% on 2L nasal cannula code status DNRCC-A DNI Tmax 101.3 with cough, CXR 09/05 shows right lung opacification and collapse suspect post-obstructive pneumonia from lung cancer treated with Ceftrixone day 2, may switch to Amoxicillin as outpatient complete for 7 day course stable to transfer to step down with telemetry (2) Squamous cell carcinoma lung Current Visit: No Status: 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 Cuevas and Dr. Qiu heme/onc consulted - discussion with family that recurrent malignancy treatments are limited and overall prognosis poor unclear if she is a candidate for further palliative chemo/radiation - hospice would be appropriate if not a candidate possible candidate for immunotherapy, patient and family remain undecided Qualifiers: Laterality: right Qualified Code(s): C34.91 - Malignant neoplasm of unspecified part of right bronchus or lung (3) Hemoptysis Current Visit: Yes Status: Acute likely multifactorial from endocbronchial tumor and anticoagulation for PE bronchoscopy (09/03) revealed completely obstructing mass found proximally in the bronchus intermedius, mass was bloody and endobronchial hemoglobin downtrending 9.0 (9.9) do not recommend continuing Xarelto if continues through with palliative and hospice care (4) SIRS (systemic inflammatory response syndrome) Current Visit: Yes Status: Acute meets SIRS criteria with tachycardia and fever suspect post-obstructive pneumonia and atelectasis Ceftriaxone day 2, consider switch to Amoxicillin for 7 day course hughes culture pending (5) Pulmonary embolism Current Visit: No Status: Acute Xarelto on hold due to hemoptysis small RLL embolus noted on CT Chest 08/19 recent CTA chest 09/02 shows no increase clot burden heme/onc consulted and appreciated - continue to hold AC due to hemoptysis Qualifiers: Pulmonary embolism type: other Chronicity: acute Acute cor pulmonale presence: without acute cor pulmonale Qualified Code(s): I26.99 - Other pulmonary embolism without acute cor pulmonale (6) Pleural effusion Current Visit: No Status: Acute CTA Chest 09/02 reveals small right pleural effusion that has increased in size suspect likely from right collapsed lung and malignant exudate from known squamous cell lung carcinoma or PE thoracentesis from prior admission with minimal fluid if worsens or signs of infection may consider another thoracentesis (7) COPD (chronic obstructive pulmonary disease) Current Visit: No Status: Acute respiratory status likely secondary to sedative continue duonebs no wheezing on exam Qualifiers: COPD type: unspecified COPD Qualified Code(s): J44.9 - Chronic obstructive pulmonary disease, unspecified (8) Constipation Current Visit: Yes Status: Acute patient complains of abdominal pain and endorses the need to have a BM colace added to bowel regimen abdomen is more firm than yesterday with normal bowel sounds Qualifiers: Constipation type: unspecified constipation type Qualified Code(s): K59.00 - Constipation, unspecified (9) Goals of care, counseling/discussion Current Visit: Yes Status: Acute discussed with family yesterday, code status changed to DNRCC-A will further discuss with POA, Altagracia, as well as family regarding reintubation and trach - POA present at bedside, agrees with patient that code status changed to DNRCC- A DNI - discussion with Dr. Hinson, myself, POA, and patient, agree that patient would not like to be reintubated or trach dependent as that does not fall in line with wishes consult Palliative care as she is hospice appropriate (10) DVT prophylaxis Current Visit: No Status: Acute EPCDs as AC contraindicated due to hemoptysis Subjective Principal diagnosis: dyspnea, hemptysis Interval history: No major events overnight. Patient seen and examined at bedside. Complains that she did not sleep well. Reports a sore throat and a wet cough. Complains of generalized chronic pain but well-controlled at this time. Denies any chest pain, shortness of breath, nausea, vomiting. Some abdominal tenderness but reports she has not had a bowel movement yet. Objective PUL Vital signs: Last Vital Signs Temp 100.1 F H 09/05/16 04:00 Pulse 94 09/05/16 06:00 Resp 18 09/05/16 06:00 BP 94/62 09/05/16 06:00 Pulse Ox 96 09/05/16 06:00 General appearance: no acute distress, alert Eyes: nonicteric, other (PERRL) ENT: oropharynx moist, oropharynx erythematous (likely rom endotracheal tube ), other (no evidence of thrush) Neck: supple Effort: normal Auscultation: right: diminished breath sounds, bilateral: rhonchi, other (coarse ) Cardiovascular: regular rate and rhythm Gastrointestinal: normoactive bowel sounds, soft, non-tender, non-distended Integumentary: normal Extremities: no edema, no clubbing Musculoskeletal: no deformities, ROM normal, other (left chest wall port) normal mental status, non-focal exam, pupils equal and round Results - Laboratory Findings CBC and BMP: 09/05/16 03:36 09/05/16 03:36 PT/INR, D-dimer PT 21.9 Seconds (9.4-12.1) H 09/03/16 04:00 Abnormal lab findings: Abnormal lab results RBC 3.24 M/mcL (3.82-4.97) L 09/05/16 03:36 Hgb 9.0 g/dL (11.5-15.4) L 09/05/16 03:36 Hct 27.5 % (35.3-44.9) L 09/05/16 03:36 MCH 27.8 pg (28.0-33.3) L 09/05/16 03:36 RDW 16.4 % (11.5-14.5) H 09/05/16 03:36 MPV 8.8 fL (9.4-12.4) L 09/05/16 03:36 Lymphocytes # 0.5 K/mcL (0.6-4.6) L 09/05/16 03:36 PT 21.9 Seconds (9.4-12.1) H 09/03/16 04:00 APTT 55.6 Seconds (26.0-36.0) H 09/03/16 04:00 Sodium 134 mEq/L (136-145) L 09/05/16 03:36 Potassium 4.7 mEq/L (3.5-4.5) H D 09/05/16 03:36 POC Glucose 101 (58-89) H 09/04/16 23:44 Calculated Osmolality 277 (280-300) L 09/05/16 03:36 Calcium 8.3 mg/dL (8.6-10.8) L 09/05/16 03:36 Ionized Calcium 1.08 mmol/L (1.15-1.35) L 09/05/16 03:36 Creatine Kinase 178 Units/L (29-168) H 09/02/16 09:50 B-Natriuretic Peptide 123 pg/mL (0-100) H 09/02/16 09:50 Albumin 2.7 g/dL (3.5-5.0) L 09/03/16 03:33 Globulin 4.0 g/dL (2.4-3.5) H 09/03/16 03:33 Albumin/Globulin Ratio 0.7 (1.1-2.2) L 09/03/16 03:33 Urine Clarity Turbid (Clear) A 09/04/16 14:51 Ur Specific [place] > 1.030 (1.010-1.025) H 09/04/16 14:51 Urine Protein 100 mg/dL (Neg-Trace) H 09/04/16 14:51 Urine Ketones Trace mg/dL (Negative) H 09/04/16 14:51 Urine Blood Large (Negative) H 09/04/16 14:51 Urine Bilirubin Small (Negative) H 09/04/16 14:51 Ur Leukocyte Esterase Small (Negative) H 09/04/16 14:51 Urine Microscopic RBC TNTC per hpf (0-3) H 09/04/16 14:51 Urine Microscopic WBC 5-15 per hpf (0-3) H 09/04/16 14:51 Amorphous Sediment Many (Few) H 09/04/16 14:51 Urine Bacteria Moderate per hpf (None-Few) H 09/04/16 14:51 - Diagnostic Findings Chest x-ray: report reviewed, image reviewed Additional studies: Chest X-Ray 09/05/16 07:05 IMPRESSION: 1. Complete opacification of the right hemithorax with volume loss, likely secondary to a combination of lung collapse and pleural effusion. Extent of pulmonary collapse can better be assessed with CT, if it would change patient management. D/ / Andrea Watts MD / Andrea Watts MD Interpreting Provider: Andrea Watts MD - Clinical Findings Intake & Output: Intake & Output 09/04/16 09/04/16 09/05/16 15:59 23:59 07:59 Intake Total 134 / 134 1050 / 1050 240 / 240 Output Total 250 / 250 425 / 425 125 / 125 Balance -116 / -116 625 / 625 115 / 115 Weight 73.936 kg - VTE Documentation of Mechanical Device: Intermittent pneumatic compression device Consult Discharge Plan - Plan Referrals: Frank Barboza MD [Primary Care Provider] -
[2016-09-05] MEDS ORDERED: Naloxone 0.4 MG/ML INJ IVP PRN (08:34)
[2016-09-05] MEDS ORDERED: Ondansetron ODT 4 MG TAB.RAPDIS SL PRN (08:34)
--- NOTE | 2016-09-05 09:22 | Palliative Progress Note ---
Date of Encounter: 09/05/16 Time of Encounter: 09:15 - Assessment and plan (1) Pulmonary embolism Current Visit: No Status: Acute Assessment and plan: The patient's being followed by pulmonary as well as hospitalist service. bronch on 09/03 revealed a completely obstructing mass found on the right side that was bloody are considering restarting anticoagulation but only if the patient's going to pursue aggressive care. Qualifiers: Pulmonary embolism type: other Chronicity: acute Acute cor pulmonale presence: without acute cor pulmonale Qualified Code(s): I26.99 - Other pulmonary embolism without acute cor pulmonale (2) Hemoptysis Current Visit: Yes Status: Acute Assessment and plan: This seems to have slowed at this time and this seems to be multifactorial in [place]. Possibly from PE possibly from the mass or possibly both. Neurology is following. (3) Goals of care, counseling/discussion Current Visit: Yes Status: Acute Assessment and plan: Patient is DNR CCA, DNI. Family and patient are discussing their further options with regard to treatment going with hospice. The patient does understand were hospice fits without they wish to pursue any further us care for her cancer. (4) Squamous cell carcinoma lung Current Visit: No Status: Chronic Assessment and plan: Answer has recurred despite therapy. Courtney is following in discussing options with family. Immunotherapy has been brought up she is considering. Qualifiers: Laterality: right Qualified Code(s): C34.91 - Malignant neoplasm of unspecified part of right bronchus or lung - Time Spent With Patient Total time spent is greater than 50% in coordination of care (as documented) at patient's floor/unit and/or counseling patient: - Subjective Interval history: Per the patient her breathing is about the same, but she does feel better with the tube out. - Constitutional Vitals: Abnormal lab results RBC 3.24 M/mcL (3.82-4.97) L 09/05/16 03:36 Hgb 9.0 g/dL (11.5-15.4) L 09/05/16 03:36 Hct 27.5 % (35.3-44.9) L 09/05/16 03:36 MCH 27.8 pg (28.0-33.3) L 09/05/16 03:36 RDW 16.4 % (11.5-14.5) H 09/05/16 03:36 MPV 8.8 fL (9.4-12.4) L 09/05/16 03:36 Lymphocytes # 0.5 K/mcL (0.6-4.6) L 09/05/16 03:36 PT 21.9 Seconds (9.4-12.1) H 09/03/16 04:00 APTT 55.6 Seconds (26.0-36.0) H 09/03/16 04:00 Sodium 134 mEq/L (136-145) L 09/05/16 03:36 Potassium 4.7 mEq/L (3.5-4.5) H D 09/05/16 03:36 POC Glucose 101 (58-89) H 09/04/16 23:44 Calculated Osmolality 277 (280-300) L 09/05/16 03:36 Calcium 8.3 mg/dL (8.6-10.8) L 09/05/16 03:36 Ionized Calcium 1.08 mmol/L (1.15-1.35) L 09/05/16 03:36 Creatine Kinase 178 Units/L (29-168) H 09/02/16 09:50 B-Natriuretic Peptide 123 pg/mL (0-100) H 09/02/16 09:50 Albumin 2.7 g/dL (3.5-5.0) L 09/03/16 03:33 Globulin 4.0 g/dL (2.4-3.5) H 09/03/16 03:33 Albumin/Globulin Ratio 0.7 (1.1-2.2) L 09/03/16 03:33 Urine Clarity Turbid (Clear) A 09/04/16 14:51 Ur Specific [place] > 1.030 (1.010-1.025) H 09/04/16 14:51 Urine Protein 100 mg/dL (Neg-Trace) H 09/04/16 14:51 Urine Ketones Trace mg/dL (Negative) H 09/04/16 14:51 Urine Blood Large (Negative) H 09/04/16 14:51 Urine Bilirubin Small (Negative) H 09/04/16 14:51 Ur Leukocyte Esterase Small (Negative) H 09/04/16 14:51 Urine Microscopic RBC TNTC per hpf (0-3) H 09/04/16 14:51 Urine Microscopic WBC 5-15 per hpf (0-3) H 09/04/16 14:51 Amorphous Sediment Many (Few) H 09/04/16 14:51 Urine Bacteria Moderate per hpf (None-Few) H 09/04/16 14:51 General appearance: Present: no acute distress - Head Head exam: Present: atraumatic, normal inspection - Eye Eye exam: Present: normal appearance - Respiratory Respiratory exam: Present: decreased breath sounds (Right greater than left), rhonchi - Cardiovascular Cardiovascular exam: Present: RRR - GI/Abdominal GI/Abdominal exam: Present: normal bowel sounds, soft. Absent: tenderness - Extremities Exam Extremities exam: Present: normal inspection. Absent: pedal edema, tenderness - Neurological Exam Neurological exam: Present: alert - Psychiatric Psychiatric exam: Present: normal affect, normal mood. Absent: agitated, anxious - Skin Skin exam: Present: dry, warm Palliative Quality Palliative Quality: Screen for Code Status: Yes, Screen for Goals of Care: Yes, Screen for Pain: Yes, If Pain Regimen Started, Initiate Bowel Regimen: Yes, Screen for Nausea/Vomitting: Yes Code Status: 09/03/16 15:56 Resuscitation Status: Active [RES] Routine Comment: Resuscitation Status: DNR-Comfort Care-Arrest 09/04/16 09:28 Resuscitation Status: Active [RES] Routine Comment: Resuscitation Status: [id number] - Labs CBC & Chem 7: 09/05/16 03:36 09/05/16 03:36 Labs: Laboratory Results - last 24 hr 09/04/16 09/04/16 09/04/16 11:11 11:38 14:51 WBC RBC Hgb Hct MCV MCH MCHC RDW Plt Count MPV Immature Gran % Seg Neutrophils % Lymphocytes % Monocytes % Eosinophils % Basophils % Neutrophils # Lymphocytes # Monocytes # Eosinophils # Basophils # Sodium Potassium 3.7 Chloride Carbon Dioxide BUN Creatinine Est GFR ( Amer) Est GFR (Non-Af Amer) BUN/Creatinine Ratio Glucose POC Glucose 163 H Calculated Osmolality Calcium Ionized Calcium 1.08 L Phosphorus 2.9 Magnesium 2.5 Urine Color Dark Yellow Urine Clarity Turbid A Urine pH 5.5 Ur Specific [place] > 1.030 H Urine Protein 100 H Urine Glucose (UA) Normal Urine Ketones Trace H Urine Blood Large H Urine Nitrite Negative Urine Bilirubin Small H Urine Urobilinogen Normal Ur Leukocyte Esterase Small H Urine Microscopic RBC TNTC H Urine Microscopic WBC 5-15 H Ur Squamous Epith Cells Few Uric Acid Crystals Present Amorphous Sediment Many H Urine Bacteria Moderate H Hyaline Casts Few 09/04/16 09/05/16 09/05/16 23:44 03:36 03:36 WBC 8.5 RBC 3.24 L Hgb 9.0 L Hct 27.5 L MCV 84.9 MCH 27.8 L MCHC 32.7 RDW 16.4 H Plt Count 226 MPV 8.8 L Immature Gran % 0.4 Seg Neutrophils % 83.5 Lymphocytes % 5.8 Monocytes % 9.6 Eosinophils % 0.6 Basophils % 0.1 Neutrophils # 7.1 Lymphocytes # 0.5 L Monocytes # 0.8 Eosinophils # 0.1 Basophils # 0.0 Sodium 134 L Potassium 4.7 H D Chloride 99 Carbon Dioxide 26 BUN 11 Creatinine 0.71 Est GFR ( Amer) > 60 Est GFR (Non-Af Amer) > 60 BUN/Creatinine Ratio 15 Glucose 96 POC Glucose 101 H Calculated Osmolality 277 L Calcium 8.3 L Ionized Calcium Phosphorus 2.4 Magnesium 1.7 Urine Color Urine Clarity Urine pH Ur Specific [place] Urine Protein Urine Glucose (UA) Urine Ketones Urine Blood Urine Nitrite Urine Bilirubin Urine Urobilinogen Ur Leukocyte Esterase Urine Microscopic RBC Urine Microscopic WBC Ur Squamous Epith Cells Uric Acid Crystals Amorphous Sediment Urine Bacteria Hyaline Casts 09/05/16 03:36 WBC RBC Hgb Hct MCV MCH MCHC RDW Plt Count MPV Immature Gran % Seg Neutrophils % Lymphocytes % Monocytes % Eosinophils % Basophils % Neutrophils # Lymphocytes # Monocytes # Eosinophils # Basophils # Sodium Potassium Chloride Carbon Dioxide BUN Creatinine Est GFR ( Amer) Est GFR (Non-Af Amer) BUN/Creatinine Ratio Glucose POC Glucose Calculated Osmolality Calcium Ionized Calcium 1.08 L Phosphorus Magnesium Urine Color Urine Clarity Urine pH Ur Specific [place] Urine Protein Urine Glucose (UA) Urine Ketones Urine Blood Urine Nitrite Urine Bilirubin Urine Urobilinogen Ur Leukocyte Esterase Urine Microscopic RBC Urine Microscopic WBC Ur Squamous Epith Cells Uric Acid Crystals Amorphous Sediment Urine Bacteria Hyaline Casts - Impressions Impressions Chest X-Ray 09/05/16 07:05 IMPRESSION: 1. Complete opacification of the right hemithorax with volume loss, likely secondary to a combination of lung collapse and pleural effusion. Extent of pulmonary collapse can better be assessed with CT, if it would change patient management. D/ / Andrea Watts MD / Andrea Watts MD Interpreting Provider: Andrea Watts MD - ABG Interpretation ABG results: PT/INR, D-dimer PT 21.9 Seconds (9.4-12.1) H 09/03/16 04:00 Consult Discharge Plan - Plan Referrals: Frank Barboza MD [Primary Care Provider] -
[2016-09-05] MEDS: Docusate Oral Soln 100 MG/10 ML UDC PO SCH (09:28)
[2016-09-05] MEDS: Cyanocobalamin (B-12) 1,000 MCG TABLET PO SCH (09:29)
[2016-09-05] MEDS: *HR* Morphine 2 MG/ML SYRINGE IVP PRN ×5 (09:30→21:57)
[2016-09-05] MEDS: Gabapentin 300 MG CAPSULE PO SCH (20:37)
[2016-09-05] MEDS: Sennosides/Docusate Sodium TABLET PO SCH (20:37)
[2016-09-06] MEDS: *HR* HYDROcodone/Acet 7.5/325 mg TABLET PO PRN ×2 (00:20→21:08)
[2016-09-06] MEDS: *HR* Morphine 2 MG/ML SYRINGE IVP PRN ×5 (02:59→21:06)
[2016-09-06] MEDS: Levalbuterol Neb 0.63 MG/3 ML IH SCH ×4 (04:38→21:20)
[2016-09-06 05:29] LABS: Basophils % 0.1 %; Eosinophils # 0.1 K/mcL (0.0-0.6); Eosinophils % 0.7 %; Hematocrit 29.8 % (35.3-44.9); Hemoglobin 9.5 g/dL (11.5-15.4); Immature Granulocytes % 0.5 % (0-4); Lymphocytes # 0.9 K/mcL (0.6-4.6); Lymphocytes % 11.5 %; Mean Corpuscular HGB Conc 31.9 g/dL (31.6-35.5); Mean Corpuscular Hemoglobin 27.5 pg (28.0-33.3); Mean Corpuscular Volume 86.4 fL (83.0-100.0); Mean Platelet Volume 8.7 fL (9.4-12.4); Monocytes # 0.8 K/mcL (0.0-1.3); Monocytes % 10.3 %; Neutrophils # 6.2 K/mcL (1.6-8.9); Platelet Count 240 K/mcL (140-400); Red Blood Count 3.45 M/mcL (3.82-4.97); Red Cell Distribution Width 16.3 % (11.5-14.5); Segmented Neutrophils % 76.9 %
[2016-09-06 05:37] LABS: BUN/Creatinine Ratio 16 (6-26); Blood Urea Nitrogen 12 mg/dL (7-20); Calcium 8.6 mg/dL (8.6-10.8); Carbon Dioxide 25 mEq/L (19-29); Chloride 99 mEq/L (98-109); Glucose 86 mg/dL (70-99); Osmolality,Calculated 275 (280-300); Potassium 4.8 mEq/L (3.5-4.5); Sodium 133 mEq/L (136-145); eGFR For African Americans > 60 (> 60); eGFR For Non-African Americans > 60 (> 60)
[2016-09-06] MEDS: Cyanocobalamin (B-12) 1,000 MCG TABLET PO SCH (07:59)
[2016-09-06] MEDS: Sennosides/Docusate Sodium TABLET PO SCH ×2 (07:59→21:09)
[2016-09-06] MEDS: Docusate Oral Soln 100 MG/10 ML UDC PO SCH (07:59)
--- NOTE | 2016-09-06 11:51 | Internal Med Progress Note ---
Date of Encounter: 09/06/16 Time of Encounter: 10:00 - Assessment and plan (1) Squamous cell carcinoma lung Current Visit: No Status: Chronic Assessment and plan: Patient had a chemotherapy and radiation therapy already. Oncology on case. Qualifiers: Laterality: right Qualified Code(s): C34.91 - Malignant neoplasm of unspecified part of right bronchus or lung (2) Pulmonary embolism Current Visit: No Status: Acute Assessment and plan: Diagnosed on 08/19. Patient was on xarelto, hold because of hemoptysis. Hemo/onco and pulmonary consult on case. Qualifiers: Pulmonary embolism type: other Chronicity: acute Acute cor pulmonale presence: without acute cor pulmonale Qualified Code(s): I26.99 - Other pulmonary embolism without acute cor pulmonale (3) COPD (chronic obstructive pulmonary disease) Current Visit: No Status: Acute Assessment and plan: Stable, continue home medications Qualifiers: COPD type: unspecified COPD Qualified Code(s): J44.9 - Chronic obstructive pulmonary disease, unspecified (4) DVT prophylaxis Current Visit: No Status: Acute Assessment and plan: EPCD (5) Pleural effusion Current Visit: No Status: Acute Assessment and plan: Will follow pulmonary recommendation (6) Hemoptysis Current Visit: Yes Status: Acute Assessment and plan: Possibly due to lung cancer. Had bronchoscope shows completely obstructing mass found proximally in the bronchus intermedius, mass was bloody. Will closely follow up hemoglobin change. (7) Obstructive pneumonia Current Visit: Yes Status: Acute Assessment and plan: Patient has fever. She has right lung collapse due to tumor obstruction. Consider obstructive pneumonia. - Continue Rocephin treatment. - closely Follow-up vitals - Poor prognosis due to unresolved trauma obstruction. - Time Spent With Patient 25 - 35 minutes - Subjective Interval history: Patient is a 76-year-old female admitted for hemoptysis. Her past medical history is significant for squamous cell lung cancer, PE, COPD, hypertension, hyperlipidemia I saw and examined the patient today. She complained of chest pain on the right side. Has shortness of breath need oxygen. Generally weak. No further hemoptysis. Had a fever last night, temperature 101.3. BP are stable. Will continue Rocephin for obstructive pneumonia. Pulmonology, oncology and palliative care on case. - Constitutional Vitals: Temp Pulse Resp BP Pulse Ox 98.8 F 105 20 110/75 95 09/06/16 10:24 09/06/16 10:24 09/06/16 10:24 09/06/16 10:24 09/06/16 10:24 General appearance: Present: mild distress, A&O X 3 - Head Head exam: Present: atraumatic, normocephalic - Eye Eye exam: Present: PERRL, conjuntiva pink, sclera anicteric Pupils: Present: PERRL - Neck Neck exam general surgery: Present: supple, trachea midline. Absent: lymphadenopathy - Respiratory Respiratory exam: Present: decreased breath sounds (On the right side), CTAB, prolonged expiratory phase. Absent: accessory muscle use, rales, rhonchi, wheezes - Cardiovascular Cardiovascular exam: Present: RRR, +S1, +S2. Absent: diastolic murmur, gallop, rubs, systolic murmur - GI/Abdominal GI/Abdominal exam: Present: normal bowel sounds, soft, no peritoneal signs. Absent: distended, tenderness - Extremities Exam Extremities exam: Present: warm, radial pulses palpable and symetrical. Absent : calf tenderness, cyanotic, pedal edema - Neurological Exam Neurological exam: Present: CN II-XII intact, oriented X3, no focal deficits. Absent: pronater drift, facial droop, speech deficit - Skin Skin exam: Present: dry, intact Internal Medicine: Result - Labs CBC & Chem 7: 09/06/16 05:05 09/06/16 05:05 Labs: Short CBC 09/06/16 Range/Units 05:05 WBC 8.0 (4.3-11.1) K/mcL Hgb 9.5 L (11.5-15.4) g/dL Hct 29.8 L (35.3-44.9) % Plt Count 240 (140-400) K/mcL Neutrophils # 6.2 (1.6-8.9) K/mcL BMP 09/06/16 05:05 Sodium 133 L Potassium 4.8 H Chloride 99 Carbon Dioxide 25 BUN 12 Creatinine 0.77 Glucose 86 Calcium 8.6 - ABG Interpretation ABG results: PT/INR, D-dimer PT 21.9 Seconds (9.4-12.1) H 09/03/16 04:00 - VTE Documentation of Mechanical Device: Intermittent pneumatic compression device Consult Discharge Plan - Plan Referrals: Frank Barboza MD [Primary Care Provider] -
[2016-09-06] MEDS: Gabapentin 300 MG CAPSULE PO SCH (21:09)
[2016-09-07] MEDS: *HR* HYDROcodone/Acet 7.5/325 mg TABLET PO PRN ×3 (03:22→20:15)
[2016-09-07] MEDS: *HR* Morphine 2 MG/ML SYRINGE IVP PRN ×3 (03:22→16:22)
[2016-09-07] MEDS: Levalbuterol Neb 0.63 MG/3 ML IH SCH ×4 (04:11→22:48)
[2016-09-07 04:39] LABS: Basophils % 0.1 %; Eosinophils # 0.1 K/mcL (0.0-0.6); Hematocrit 28.5 % (35.3-44.9); Immature Granulocytes % 0.9 % (0-4); Lymphocytes # 0.9 K/mcL (0.6-4.6); Lymphocytes % 12.3 %; Mean Corpuscular HGB Conc 31.6 g/dL (31.6-35.5); Mean Corpuscular Hemoglobin 27.1 pg (28.0-33.3); Mean Corpuscular Volume 85.8 fL (83.0-100.0); Mean Platelet Volume 8.5 fL (9.4-12.4); Monocytes # 0.9 K/mcL (0.0-1.3); Monocytes % 12.5 %; Neutrophils # 5.1 K/mcL (1.6-8.9); Platelet Count 246 K/mcL (140-400); Red Blood Count 3.32 M/mcL (3.82-4.97); Red Cell Distribution Width 16.1 % (11.5-14.5); Segmented Neutrophils % 73.2 %
[2016-09-07 04:48] LABS: BUN/Creatinine Ratio 14 (6-26); Blood Urea Nitrogen 10 mg/dL (7-20); Calcium 8.8 mg/dL (8.6-10.8); Carbon Dioxide 26 mEq/L (19-29); Chloride 99 mEq/L (98-109); Glucose 101 mg/dL (70-99); Osmolality,Calculated 275 (280-300); Potassium 4.4 mEq/L (3.5-4.5); Sodium 133 mEq/L (136-145); eGFR For African Americans > 60 (> 60); eGFR For Non-African Americans > 60 (> 60)
[2016-09-07] MEDS: Docusate Oral Soln 100 MG/10 ML UDC PO SCH (08:41)
[2016-09-07] MEDS: Sennosides/Docusate Sodium TABLET PO SCH ×2 (08:41→20:15)
[2016-09-07] MEDS: Cyanocobalamin (B-12) 1,000 MCG TABLET PO SCH (08:41)
[2016-09-07] MEDS: GuaiFENesin/Codeine Oral Soln 5 ML UDC PO PRN ×2 (08:51→15:57)
--- NOTE | 2016-09-07 13:12 | Palliative Progress Note ---
Date of Encounter: 09/07/16 Time of Encounter: 12:30 - Assessment and plan (1) Constipation Current Visit: No Status: Acute Assessment and plan: Patient haf large BM yesterday (September 06). Reports feeling much better and less distended. BS x4. Passing gas as well. Current regimen of senna and colace effective. Will continue to monitor. Qualifiers: Constipation type: unspecified constipation type Qualified Code(s): K59.00 - Constipation, unspecified (2) Cancer related pain Current Visit: No Status: Acute Assessment and plan: Patient with lung cancer. Currently used 2 doses in past 24 hrs of Sandy tabs and received 2 doses (1mg each) of Morphine. Reports no discomfort at present. Patient respirations easy. (3) Goals of care, counseling/discussion Current Visit: Yes Status: Acute Assessment and plan: Patient is DNRCC-A, DNI. Is aware of Hospice options but still desires treatment is available. Oncology following. Will follow from a distance. (4) Squamous cell carcinoma lung Current Visit: No Status: Chronic Qualifiers: Laterality: right Qualified Code(s): C34.91 - Malignant neoplasm of unspecified part of right bronchus or lung (5) Pulmonary embolism Current Visit: No Status: Acute Qualifiers: Pulmonary embolism type: other Chronicity: acute Acute cor pulmonale presence: without acute cor pulmonale Qualified Code(s): I26.99 - Other pulmonary embolism without acute cor pulmonale - Time Spent With Patient Total time spent is greater than 50% in coordination of care (as documented) at patient's floor/unit and/or counseling patient: 25 - 35 minutes - Subjective Interval history: Patient up in bed, texting on cellphone. Alert, denies complaints at present. at bedside. - Constitutional Vitals: Abnormal lab results RBC 3.32 M/mcL (3.82-4.97) L 09/07/16 04:27 Hgb 9.0 g/dL (11.5-15.4) L 09/07/16 04:27 Hct 28.5 % (35.3-44.9) L 09/07/16 04:27 MCH 27.1 pg (28.0-33.3) L 09/07/16 04:27 RDW 16.1 % (11.5-14.5) H 09/07/16 04:27 MPV 8.5 fL (9.4-12.4) L 09/07/16 04:27 PT 21.9 Seconds (9.4-12.1) H 09/03/16 04:00 APTT 55.6 Seconds (26.0-36.0) H 09/03/16 04:00 Sodium 133 mEq/L (136-145) L 09/07/16 04:27 Glucose 101 mg/dL (70-99) H 09/07/16 04:27 POC Glucose 101 (58-89) H 09/04/16 23:44 Calculated Osmolality 275 (280-300) L 09/07/16 04:27 Ionized Calcium 1.08 mmol/L (1.15-1.35) L 09/05/16 03:36 Creatine Kinase 178 Units/L (29-168) H 09/02/16 09:50 B-Natriuretic Peptide 123 pg/mL (0-100) H 09/02/16 09:50 Albumin 2.7 g/dL (3.5-5.0) L 09/03/16 03:33 Globulin 4.0 g/dL (2.4-3.5) H 09/03/16 03:33 Albumin/Globulin Ratio 0.7 (1.1-2.2) L 09/03/16 03:33 Urine Clarity Turbid (Clear) A 09/04/16 14:51 Ur Specific [place] > 1.030 (1.010-1.025) H 09/04/16 14:51 Urine Protein 100 mg/dL (Neg-Trace) H 09/04/16 14:51 Urine Ketones Trace mg/dL (Negative) H 09/04/16 14:51 Urine Blood Large (Negative) H 09/04/16 14:51 Urine Bilirubin Small (Negative) H 09/04/16 14:51 Ur Leukocyte Esterase Small (Negative) H 09/04/16 14:51 Urine Microscopic RBC TNTC per hpf (0-3) H 09/04/16 14:51 Urine Microscopic WBC 5-15 per hpf (0-3) H 09/04/16 14:51 Amorphous Sediment Many (Few) H 09/04/16 14:51 Urine Bacteria Moderate per hpf (None-Few) H 09/04/16 14:51 - Head Head exam: Present: atraumatic, normal inspection, normocephalic - Eye Eye exam: Present: PERRL Pupils: Present: PERRL - ENT ENT exam: Present: mucous membranes moist - Neck Neck exam: Present: full ROM - Respiratory Respiratory exam: Present: CTAB - Cardiovascular Cardiovascular exam: Present: RRR, +S1, +S2 - GI/Abdominal GI/Abdominal exam: Present: normal bowel sounds, soft - Rectal Rectal exam: Present: deferred - Back Exam Back exam: Present: full ROM - Neurological Exam Neurological exam: Present: alert, CN II-XII intact, oriented X3 - Psychiatric Psychiatric exam: Present: normal affect - Skin Skin exam: Present: pallor, warm Palliative Quality Palliative Quality: Screen for Code Status: Yes, Screen for Goals of Care: Yes, Screen for Pain: Yes, If Pain Regimen Started, Initiate Bowel Regimen: Yes, Screen for Nausea/Vomitting: Yes Code Status: 09/03/16 15:56 Resuscitation Status: Active [RES] Routine Comment: Resuscitation Status: DNR-Comfort Care-Arrest 09/04/16 09:28 Resuscitation Status: Active [RES] Routine Comment: Resuscitation Status: [id number] - Labs CBC & Chem 7: 09/07/16 04:27 09/07/16 04:27 Labs: Laboratory Results - last 24 hr 09/07/16 09/07/16 04:27 04:27 WBC 7.0 RBC 3.32 L Hgb 9.0 L Hct 28.5 L MCV 85.8 MCH 27.1 L MCHC 31.6 RDW 16.1 H Plt Count 246 MPV 8.5 L Immature Gran % 0.9 Seg Neutrophils % 73.2 Lymphocytes % 12.3 Monocytes % 12.5 Eosinophils % 1.0 Basophils % 0.1 Neutrophils # 5.1 Lymphocytes # 0.9 Monocytes # 0.9 Eosinophils # 0.1 Basophils # 0.0 Sodium 133 L Potassium 4.4 Chloride 99 Carbon Dioxide 26 BUN 10 Creatinine 0.70 Est GFR ( Amer) > 60 Est GFR (Non-Af Amer) > 60 BUN/Creatinine Ratio 14 Glucose 101 H Calculated Osmolality 275 L Calcium 8.8 - ABG Interpretation ABG results: PT/INR, D-dimer PT 21.9 Seconds (9.4-12.1) H 09/03/16 04:00 Consult Discharge Plan - Plan Referrals: Frank Barboza MD [Primary Care Provider] -
--- NOTE | 2016-09-07 16:58 | Internal Med Progress Note ---
Date of Encounter: 09/07/16 Time of Encounter: 10:00 - Assessment and plan (1) Squamous cell carcinoma lung Current Visit: No Status: Chronic Assessment and plan: Patient had a chemotherapy and radiation therapy already. Oncology on case. Need oncology input for further management plan. Qualifiers: Laterality: right Qualified Code(s): C34.91 - Malignant neoplasm of unspecified part of right bronchus or lung (2) Pulmonary embolism Current Visit: No Status: Acute Assessment and plan: Diagnosed on 08/19. Patient was on xarelto, hold because of hemoptysis. Hemo/onco and pulmonary consult on case. Need oncology recommendation regarding anticoagulation. Qualifiers: Pulmonary embolism type: other Chronicity: acute Acute cor pulmonale presence: without acute cor pulmonale Qualified Code(s): I26.99 - Other pulmonary embolism without acute cor pulmonale (3) COPD (chronic obstructive pulmonary disease) Current Visit: No Status: Acute Assessment and plan: Stable, continue home medications Qualifiers: COPD type: unspecified COPD Qualified Code(s): J44.9 - Chronic obstructive pulmonary disease, unspecified (4) DVT prophylaxis Current Visit: No Status: Acute Assessment and plan: EPCD (5) Pleural effusion Current Visit: No Status: Acute Assessment and plan: Will follow pulmonary recommendation (6) Hemoptysis Current Visit: Yes Status: Acute Assessment and plan: Possibly due to lung cancer. Had bronchoscope shows completely obstructing mass found proximally in the bronchus intermedius, mass was bloody. Will closely follow up hemoglobin change. (7) Obstructive pneumonia Current Visit: Yes Status: Acute Assessment and plan: Patient has fever. She has right lung collapse due to tumor obstruction. Consider obstructive pneumonia. - Continue Rocephin treatment. - closely Follow-up vitals - Poor prognosis due to unresolved trauma obstruction. - Oxygen supportive treatment - Time Spent With Patient 25 - 35 minutes - Subjective Interval history: Patient is a 76-year-old female admitted for hemoptysis. Her past medical history is significant for squamous cell lung cancer, PE, COPD, hypertension, hyperlipidemia I saw and examined the patient today. She complained of chest pain on the right side. Has shortness of breath need oxygen. Generally weak. No further hemoptysis. Still has low fever last night, temperature 100.3. BP are stable. Will continue Rocephin for obstructive pneumonia. Pulmonology, oncology and palliative care on case. - Constitutional Vitals: Temp Pulse Resp BP Pulse Ox 97.8 F 96 18 97/66 97 09/07/16 14:56 09/07/16 14:56 09/07/16 14:56 09/07/16 14:56 09/07/16 14:56 General appearance: Present: mild distress, A&O X 3 - Head Head exam: Present: atraumatic, normocephalic - Eye Eye exam: Present: PERRL, conjuntiva pink, sclera anicteric Pupils: Present: PERRL - Neck Neck exam general surgery: Present: supple, trachea midline. Absent: lymphadenopathy - Respiratory Respiratory exam: Present: decreased breath sounds (On the right side), CTAB. Absent: accessory muscle use, rales, rhonchi, wheezes - Cardiovascular Cardiovascular exam: Present: RRR, +S1, +S2. Absent: diastolic murmur, gallop, rubs, systolic murmur - GI/Abdominal GI/Abdominal exam: Present: normal bowel sounds, soft, no peritoneal signs. Absent: distended, tenderness - Extremities Exam Extremities exam: Present: warm, radial pulses palpable and symetrical. Absent : calf tenderness, cyanotic, pedal edema - Neurological Exam Neurological exam: Present: CN II-XII intact, oriented X3, no focal deficits. Absent: pronater drift, facial droop, speech deficit - Skin Skin exam: Present: dry, intact Internal Medicine: Result - Labs CBC & Chem 7: 09/07/16 04:27 09/07/16 04:27 Labs: Short CBC 09/07/16 Range/Units 04:27 WBC 7.0 (4.3-11.1) K/mcL Hgb 9.0 L (11.5-15.4) g/dL Hct 28.5 L (35.3-44.9) % Plt Count 246 (140-400) K/mcL Neutrophils # 5.1 (1.6-8.9) K/mcL BMP 09/07/16 04:27 Sodium 133 L Potassium 4.4 Chloride 99 Carbon Dioxide 26 BUN 10 Creatinine 0.70 Glucose 101 H Calcium 8.8 - ABG Interpretation ABG results: PT/INR, D-dimer PT 21.9 Seconds (9.4-12.1) H 09/03/16 04:00 - VTE Documentation of Mechanical Device: Intermittent pneumatic compression device Consult Discharge Plan - Plan Referrals: Frank Barboza MD [Primary Care Provider] -
[2016-09-07] MEDS: Gabapentin 300 MG CAPSULE PO SCH (20:15)
[2016-09-08] MEDS: GuaiFENesin/Codeine Oral Soln 5 ML UDC PO PRN (00:16)
[2016-09-08] MEDS: *HR* Morphine 2 MG/ML SYRINGE IVP PRN ×5 (03:34→22:10)
[2016-09-08] MEDS: Levalbuterol Neb 0.63 MG/3 ML IH SCH ×4 (04:06→22:37)
[2016-09-08] MEDS: *HR* HYDROcodone/Acet 7.5/325 mg TABLET PO PRN ×2 (09:39→17:45)
[2016-09-08] MEDS: Cyanocobalamin (B-12) 1,000 MCG TABLET PO SCH (09:51)
[2016-09-08] MEDS: Sennosides/Docusate Sodium TABLET PO SCH ×2 (09:51→20:49)
--- NOTE | 2016-09-08 15:06 | Internal Med Progress Note ---
Date of Encounter: 09/08/16 Time of Encounter: 10:00 - Assessment and plan (1) Squamous cell carcinoma lung Current Visit: No Status: Chronic Assessment and plan: Patient had a chemotherapy and radiation therapy already. Has right side bronchial blockage and lung collapse. Oncology on case. Need oncology input for further management plan. - Patient is a generally weak, PTOT evaluation Qualifiers: Laterality: right Qualified Code(s): C34.91 - Malignant neoplasm of unspecified part of right bronchus or lung (2) Pulmonary embolism Current Visit: No Status: Acute Assessment and plan: Diagnosed on 08/19. Patient was on xarelto, hold because of hemoptysis. Hemo/onco and pulmonary consult on case. Need oncology recommendation regarding anticoagulation. Qualifiers: Pulmonary embolism type: other Chronicity: acute Acute cor pulmonale presence: without acute cor pulmonale Qualified Code(s): I26.99 - Other pulmonary embolism without acute cor pulmonale (3) COPD (chronic obstructive pulmonary disease) Current Visit: No Status: Acute Assessment and plan: Stable, continue home medications Qualifiers: COPD type: unspecified COPD Qualified Code(s): J44.9 - Chronic obstructive pulmonary disease, unspecified (4) DVT prophylaxis Current Visit: No Status: Acute Assessment and plan: EPCD (5) Pleural effusion Current Visit: No Status: Acute Assessment and plan: Will follow pulmonary recommendation (6) Hemoptysis Current Visit: Yes Status: Acute Assessment and plan: Possibly due to lung cancer. Had bronchoscope shows completely obstructing mass found proximally in the bronchus intermedius, mass was bloody. No further bleeding, hemoglobin stable. (7) Obstructive pneumonia Current Visit: Yes Status: Acute Assessment and plan: Patient has fever. She has right lung collapse due to tumor obstruction. Consider obstructive pneumonia. - Continue Rocephin treatment. - closely Follow-up vitals - Poor prognosis due to unresolved bronchial obstruction. - Oxygen supportive treatment - Subjective Interval history: Patient is a 76-year-old female admitted for hemoptysis. Her past medical history is significant for squamous cell lung cancer, PE, COPD, hypertension, hyperlipidemia I saw and examined the patient today. She complained of chest pain on the right side, need pain medication. Has shortness of breath need oxygen. Generally weak. No further hemoptysis. No fever over last 24 hours. BP are stable. Will continue Rocephin for obstructive pneumonia. Pulmonology, oncology and palliative care on case. - Constitutional Vitals: Temp Pulse Resp BP Pulse Ox 98.7 F 95 18 95/66 95 09/08/16 11:42 09/08/16 11:42 09/08/16 11:42 09/08/16 11:42 09/08/16 11:42 General appearance: Present: mild distress, A&O X 3 - Head Head exam: Present: atraumatic, normocephalic - Eye Eye exam: Present: PERRL, conjuntiva pink, sclera anicteric Pupils: Present: PERRL - Neck Neck exam general surgery: Present: supple, trachea midline. Absent: lymphadenopathy - Respiratory Respiratory exam: Present: decreased breath sounds (On right side), CTAB. Absent: accessory muscle use, rales, rhonchi, wheezes - Cardiovascular Cardiovascular exam: Present: RRR, +S1, +S2. Absent: diastolic murmur, gallop, rubs, systolic murmur - GI/Abdominal GI/Abdominal exam: Present: normal bowel sounds, soft, no peritoneal signs. Absent: distended, tenderness - Extremities Exam Extremities exam: Present: warm, radial pulses palpable and symetrical. Absent : calf tenderness, cyanotic, pedal edema - Neurological Exam Neurological exam: Present: CN II-XII intact, oriented X3, no focal deficits. Absent: pronater drift, facial droop, speech deficit - Skin Skin exam: Present: dry, intact Internal Medicine: Result - Labs CBC & Chem 7: 09/07/16 04:27 09/07/16 04:27 - ABG Interpretation ABG results: PT/INR, D-dimer PT 21.9 Seconds (9.4-12.1) H 09/03/16 04:00 - VTE Documentation of Mechanical Device: Intermittent pneumatic compression device Consult Discharge Plan - Plan Referrals: Frank Barboza MD [Primary Care Provider] -
[2016-09-08] MEDS: Gabapentin 300 MG CAPSULE PO SCH (20:50)
[2016-09-09] MEDS: *HR* HYDROcodone/Acet 7.5/325 mg TABLET PO PRN ×2 (03:17→12:49)
[2016-09-09] MEDS: *HR* Morphine 2 MG/ML SYRINGE IVP PRN ×3 (03:18→15:13)
[2016-09-09] MEDS: Levalbuterol Neb 0.63 MG/3 ML IH SCH ×3 (04:36→15:56)
[2016-09-09 05:44] LABS: Basophils % 0.2 %; Eosinophils # 0.1 K/mcL (0.0-0.6); Eosinophils % 1.2 %; Hematocrit 28.2 % (35.3-44.9); Hemoglobin 8.8 g/dL (11.5-15.4); Lymphocytes # 0.7 K/mcL (0.6-4.6); Lymphocytes % 14.4 %; Mean Corpuscular HGB Conc 31.2 g/dL (31.6-35.5); Mean Corpuscular Hemoglobin 27.2 pg (28.0-33.3); Mean Platelet Volume 8.8 fL (9.4-12.4); Monocytes # 0.7 K/mcL (0.0-1.3); Monocytes % 14.2 %; Neutrophils # 3.5 K/mcL (1.6-8.9); Platelet Count 301 K/mcL (140-400); Red Blood Count 3.24 M/mcL (3.82-4.97); Red Cell Distribution Width 16.3 % (11.5-14.5)
[2016-09-09 05:57] LABS: BUN/Creatinine Ratio 22 (6-26); Blood Urea Nitrogen 14 mg/dL (7-20); Carbon Dioxide 27 mEq/L (19-29); Chloride 99 mEq/L (98-109); Glucose 102 mg/dL (70-99); Osmolality,Calculated 279 (280-300); Potassium 4.3 mEq/L (3.5-4.5); Sodium 134 mEq/L (136-145); eGFR For African Americans > 60 (> 60); eGFR For Non-African Americans > 60 (> 60)
[2016-09-09 06:18] LABS: Platelet Estimate Normal (Normal)
[2016-09-09] MEDS: Cyanocobalamin (B-12) 1,000 MCG TABLET PO SCH (08:29)
[2016-09-09] MEDS: Sennosides/Docusate Sodium TABLET PO SCH (08:30)
--- NOTE | 2016-09-09 09:50 | Palliative Progress Note ---
Date of Encounter: 09/09/16 Time of Encounter: 09:30 - Assessment and plan (1) Pulmonary embolism Current Visit: No Status: Acute Assessment and plan: The patient's being followed by pulmonary as well as hospitalist service. bronch on 09/03 revealed a completely obstructing mass found on the right side that was bloody at this point pulmonary is recommending no anticoagulation due to bleeding risk. Currently this is awaiting further consultation with oncology. Qualifiers: Pulmonary embolism type: other Chronicity: acute Acute cor pulmonale presence: without acute cor pulmonale Qualified Code(s): I26.99 - Other pulmonary embolism without acute cor pulmonale (2) Hemoptysis Current Visit: Yes Status: Acute Assessment and plan: This seems to have slowed at this time and this seems to be multifactorial in [place]. Possibly from PE possibly from the mass or possibly both. Pulmonary is following. They are recommending keeping the coagulation stopped the continued bleeding risk. (3) Goals of care, counseling/discussion Current Visit: Yes Status: Acute Assessment and plan: Patient is DNR CCA, DNI. Patient has already had hospice described to her in depth and detail, she is awaiting further information from oncology decisions regarding further aggressive care. She is interested in aggressive care if they feel it will help her. (4) Squamous cell carcinoma lung Current Visit: No Status: Chronic Assessment and plan: Answer has recurred despite therapy. Oncology is following in discussing options with family. Immunotherapy has been brought up she is considering. Qualifiers: Laterality: right Qualified Code(s): C34.91 - Malignant neoplasm of unspecified part of right bronchus or lung - Time Spent With Patient Total time spent is greater than 50% in coordination of care (as documented) at patient's floor/unit and/or counseling patient: - Subjective Interval history: Per the patient her breathing is about the same, she states her bowels are moving. She is awaiting word from oncology as to what they have to offer. - Constitutional Vitals: Abnormal lab results RBC 3.24 M/mcL (3.82-4.97) L 09/09/16 05:00 Hgb 8.8 g/dL (11.5-15.4) L 09/09/16 05:00 Hct 28.2 % (35.3-44.9) L 09/09/16 05:00 MCH 27.2 pg (28.0-33.3) L 09/09/16 05:00 MCHC 31.2 g/dL (31.6-35.5) L 09/09/16 05:00 RDW 16.3 % (11.5-14.5) H 09/09/16 05:00 MPV 8.8 fL (9.4-12.4) L 09/09/16 05:00 PT 21.9 Seconds (9.4-12.1) H 09/03/16 04:00 APTT 55.6 Seconds (26.0-36.0) H 09/03/16 04:00 Sodium 134 mEq/L (136-145) L 09/09/16 05:00 Glucose 102 mg/dL (70-99) H 09/09/16 05:00 POC Glucose 101 (58-89) H 09/04/16 23:44 Calculated Osmolality 279 (280-300) L 09/09/16 05:00 Ionized Calcium 1.08 mmol/L (1.15-1.35) L 09/05/16 03:36 Creatine Kinase 178 Units/L (29-168) H 09/02/16 09:50 B-Natriuretic Peptide 123 pg/mL (0-100) H 09/02/16 09:50 Albumin 2.7 g/dL (3.5-5.0) L 09/03/16 03:33 Globulin 4.0 g/dL (2.4-3.5) H 09/03/16 03:33 Albumin/Globulin Ratio 0.7 (1.1-2.2) L 09/03/16 03:33 Urine Clarity Turbid (Clear) A 09/04/16 14:51 Ur Specific [place] > 1.030 (1.010-1.025) H 09/04/16 14:51 Urine Protein 100 mg/dL (Neg-Trace) H 09/04/16 14:51 Urine Ketones Trace mg/dL (Negative) H 09/04/16 14:51 Urine Blood Large (Negative) H 09/04/16 14:51 Urine Bilirubin Small (Negative) H 09/04/16 14:51 Ur Leukocyte Esterase Small (Negative) H 09/04/16 14:51 Urine Microscopic RBC TNTC per hpf (0-3) H 09/04/16 14:51 Urine Microscopic WBC 5-15 per hpf (0-3) H 09/04/16 14:51 Amorphous Sediment Many (Few) H 09/04/16 14:51 Urine Bacteria Moderate per hpf (None-Few) H 09/04/16 14:51 General appearance: Present: no acute distress - Head Head exam: Present: atraumatic, normal inspection - Eye Eye exam: Present: normal appearance - ENT ENT exam: Present: mucous membranes moist - Respiratory Respiratory exam: Present: decreased breath sounds, rhonchi - Cardiovascular Cardiovascular exam: Present: irregular rhythm - GI/Abdominal GI/Abdominal exam: Present: normal bowel sounds, soft. Absent: tenderness - Extremities Exam Extremities exam: Absent: pedal edema, tenderness - Neurological Exam Neurological exam: Present: alert, oriented X3 - Psychiatric Psychiatric exam: Present: normal affect, normal mood. Absent: agitated, anxious - Skin Skin exam: Present: dry, warm Palliative Quality Palliative Quality: Screen for Code Status: Yes, Screen for Goals of Care: Yes, Screen for Pain: Yes, If Pain Regimen Started, Initiate Bowel Regimen: Yes, Screen for Nausea/Vomitting: Yes Code Status: 09/03/16 15:56 Resuscitation Status: Active [RES] Routine Comment: Resuscitation Status: DNR-Comfort Care-Arrest 09/04/16 09:28 Resuscitation Status: Active [RES] Routine Comment: Resuscitation Status: [id number] - Labs CBC & Chem 7: 09/09/16 05:00 09/09/16 05:00 Labs: Laboratory Results - last 24 hr 09/09/16 09/09/16 05:00 05:00 WBC 5.0 RBC 3.24 L Hgb 8.8 L Hct 28.2 L MCV 87.0 MCH 27.2 L MCHC 31.2 L RDW 16.3 H Plt Count 301 MPV 8.8 L Immature Gran % 1.0 Seg Neutrophils % 69.0 Lymphocytes % 14.4 Monocytes % 14.2 Eosinophils % 1.2 Basophils % 0.2 Neutrophils # 3.5 Lymphocytes # 0.7 Monocytes # 0.7 Eosinophils # 0.1 Basophils # 0.0 Platelet Estimate Normal Sodium 134 L Potassium 4.3 Chloride 99 Carbon Dioxide 27 BUN 14 Creatinine 0.63 Est GFR ( Amer) > 60 Est GFR (Non-Af Amer) > 60 BUN/Creatinine Ratio 22 Glucose 102 H Calculated Osmolality 279 L Calcium 9.0 - ABG Interpretation ABG results: PT/INR, D-dimer PT 21.9 Seconds (9.4-12.1) H 09/03/16 04:00 Consult Discharge Plan - Plan Referrals: Frank Barboza MD [Primary Care Provider] -
[2016-09-09] MEDS: GuaiFENesin/Codeine Oral Soln 5 ML UDC PO PRN (15:13)
[2016-09-09 15:22] VITALS: BP 106/71
[2016-09-09] MEDS ORDERED: Ipratropium Neb 0.5 MG NEBULIZER IH SCH (16:00)
--- NOTE | 2016-09-09 16:05 | Oncology Inp Progress Note ---
<Crista Morrisa E - Last Filed: 09/09/16 15:58> Date of Encounter: 09/09/16 Time of Encounter: 15:30 (1) Squamous cell carcinoma lung Status: Chronic Assessment and plan: Will f/u with Dr. Berrios as outpatient for further discussion of possible immunotherapy. At this time patient is leaning toward hospice but wants to see Dr. Berrios before making final decision. Please schedule f/ u. Qualifiers: Laterality: right Qualified Code(s): C34.91 - Malignant neoplasm of unspecified part of right bronchus or lung (2) Pulmonary embolism Status: Acute Assessment and plan: Pateint has endobronchial lesion and is not a candidate for anticoagulation. It is OK for her to take ASA 81 mg daily. Qualifiers: Pulmonary embolism type: other Chronicity: acute Acute cor pulmonale presence: without acute cor pulmonale Qualified Code(s): I26.99 - Other pulmonary embolism without acute cor pulmonale Oncology: Subj Interval history: Patient seen and examined at bedside. She denies hemoptysis. Continues to have shortness of breath with even minimal exertion. Explained to patient that Dr Berrios wants to see her as out-patient to determine if she is a candidate for further therapy such as immunotherapy. Patient daughter states she is leaning toward hospice, she wants to be able to enjoy what life she has but she does want to see Dr. Berrios before she makes final decision. She understands that she will no longer be taking Xarelto secondary to having endobroncial tumor, but will take ASA 81 mg daily. - Constitutional Vitals: Vital Signs Temp Pulse Resp BP Pulse Ox 09/09/16 15:17 97.6 F 94 19 106/71 95 09/09/16 12:29 98.1 F 91 20 99/66 95 09/09/16 11:15 20 96 09/09/16 10:56 20 96 09/09/16 07:25 98.3 F 96 20 108/76 96 09/09/16 04:36 18 96 09/09/16 04:08 98.5 F 99 20 94/68 93 09/08/16 23:45 98.8 F 97 22 103/70 95 09/08/16 22:37 16 97 09/08/16 18:00 98.2 F 99 18 101/71 96 09/08/16 16:20 97.6 F 97 17 102/71 100 09/08/16 16:13 16 102/71 92 Intake and Output 09/08/16 09/09/16 09/09/16 23:59 07:59 15:59 Intake Total 240 / 240 700 / 700 Output Total 825 / 825 275 / 275 700 / 700 Balance -585 / -585 -275 / -275 0 / 0 Intake: IV Fluids 100 / 100 Rocephin 1,000 MG In 100 / 100 Dextrose 5% (Minibag+) 100 ML 100 ML @ 200 mls/ hr IVPB DAILY [facility] Rx#: [id number] Oral 240 / 240 600 / 600 Output: Urine 700 / 700 Urethral (Cassidy) 300 / 300 Catheter 825 / 825 275 / 275 Other: Meal Dinner Lunch Percent of Meal Consumed 100% 60% Stool Size Large Stool Consistency formed Stool Color Brown Green Weight 75.4 kg Patient Weight 09/09/16 23:59 Weight 75.4 kg General appearance: cooperative, no acute distress - Head Head exam: Present: normal inspection - ENT ENT exam: Present: mucous membranes moist - Respiratory Respiratory exam: Present: decreased breath sounds (R base), CTAB - Cardiovascular Cardiovascular exam: Present: RRR - GI/Abdominal GI/Abdominal exam: Present: normal bowel sounds, soft (non tender) - Extremities Exam Extremities exam: Present: normal capillary refill, normal inspection - Neurological Exam Neurological exam: Present: alert, oriented X3 Oncology: Obj Data - Labs CBC & Chem 7: 09/09/16 05:00 09/09/16 05:00 Labs: Laboratory Results - last 24 hr 09/09/16 09/09/16 05:00 05:00 WBC 5.0 RBC 3.24 L Hgb 8.8 L Hct 28.2 L MCV 87.0 MCH 27.2 L MCHC 31.2 L RDW 16.3 H Plt Count 301 MPV 8.8 L Immature Gran % 1.0 Seg Neutrophils % 69.0 Lymphocytes % 14.4 Monocytes % 14.2 Eosinophils % 1.2 Basophils % 0.2 Neutrophils # 3.5 Lymphocytes # 0.7 Monocytes # 0.7 Eosinophils # 0.1 Basophils # 0.0 Platelet Estimate Normal Sodium 134 L Potassium 4.3 Chloride 99 Carbon Dioxide 27 BUN 14 Creatinine 0.63 Est GFR ( Amer) > 60 Est GFR (Non-Af Amer) > 60 BUN/Creatinine Ratio 22 Glucose 102 H Calculated Osmolality 279 L Calcium 9.0 - ABG Interpretation ABG results: PT/INR, D-dimer PT 21.9 Seconds (9.4-12.1) H 09/03/16 04:00 Consult Discharge Plan - Plan Referrals: Frank Barboza MD [Primary Care Provider] - Prescriptions: Bed - Hospital [Hospital Bed] 1 each .ROUTE AD #1 each cephALEXin [Keflex] 500 mg PO BID #10 capsule HYDROcodone/Acet 7.5/325 mg [[place] 7.5-325 mg] 1 tab PO Q6H #20 tablet <Lu Shoemaker S - Last Filed: 09/10/16 16:43> Date of Encounter: 09/10/16 Oncology: Obj Data - Labs CBC & Chem 7: 09/09/16 05:00 09/09/16 05:00 - ABG Interpretation ABG results: PT/INR, D-dimer PT 21.9 Seconds (9.4-12.1) H 09/03/16 04:00 - Attending Attestation I examined this patient and my medical decision-making was reviewed with the Advanced Practice Nurse. I agree with the documented findings, disposition and treatment plan as described except to the extent set forth below. 1. Squamous cell carcinoma and currently has recurrence with intramucosal lesion. Continue aspirin 81 mg a day. Not a candidate for anticoagulation 2. Thoracentesis 175 mL removed 08/21/2016 3. History of pulmonary embolism. CT angiogram 09/02/2016 negative for PE. At this time the risk of anticoagulation outweigh the benefits
--- NOTE | 2016-09-09 16:26 | Discharge Summary ---
Date of Encounter: 09/09/16 Time of Encounter: 15:30 - Discharge Diagnosis (1) Squamous cell carcinoma lung Priority: Primary Status: Chronic Qualifiers: Laterality: right Qualified Code(s): C34.91 - Malignant neoplasm of unspecified part of right bronchus or lung (2) Pulmonary embolism Priority: Primary Status: Acute Qualifiers: Pulmonary embolism type: other Chronicity: acute Acute cor pulmonale presence: without acute cor pulmonale Qualified Code(s): I26.99 - Other pulmonary embolism without acute cor pulmonale (3) COPD (chronic obstructive pulmonary disease) Priority: Secondary Status: Acute Qualifiers: COPD type: unspecified COPD Qualified Code(s): J44.9 - Chronic obstructive pulmonary disease, unspecified (4) DVT prophylaxis Priority: Secondary Status: Acute (5) Pleural effusion Priority: Secondary Status: Acute (6) Hemoptysis Priority: Primary Status: Acute (7) Obstructive pneumonia Priority: Primary Status: Acute - Discharge Medications Prescriptions: cephALEXin [Keflex] 500 mg PO BID #10 capsule HYDROcodone/Acet 7.5/325 mg [[place] 7.5-325 mg] 1 tab PO Q6H #20 tablet Home Medications: Albuterol Sulfate [Proair Hfa] 2 puff PO Q4H PRN 10/03/15 [History] Alendronate Sodium [Fosamax] 70 mg PO QWEEK MDD thursday10/03/15 [History] Calcium Carbonate [Calcium] 500 mg PO DAILY 10/03/15 [History] Cholecalciferol (Vitamin D3) [Vitamin D3] 5,000 unit PO DAILY 10/03/15 [History] Cyanocobalamin (Vitamin B-12) [Vitamin B-12] 1,000 mcg SL DAILY 10/03/15 [ History] Fluticasone/Salmeterol [Advair 250-50 Diskus] 1 puff IH BID 10/03/15 [History] Gluc/[place]-MSM#1/C/Maciej/Paulie/Bor [Osteo Bi-Flex Caplet] 1 tab PO DAILY 10/03/15 [ History] Oxygen 4 l NS HS 10/03/15 [History] Simvastatin [Zocor] 20 mg PO HS 10/03/15 [History] Tiotropium [Spiriva] 1 puff IH DAILY 10/03/15 [History] Torsemide [Demadex] 10 - 20 mg PO DAILY 10/03/15 [History] Omeprazole [PriLOSEC] 40 mg PO DAILY #30 cap 08/07/16 [Rx] Gabapentin [Neurontin] 300 mg PO HS #30 capsule 08/14/16 [Rx] Zolpidem [Ambien] 10 mg PO HS #30 tablet 08/14/16 [Rx] GuaiFENesin/Codeine [ROBITUSSIN w/CODEINE] 5 ml PO Q6HR PRN #250 liquid [Rx] Pantoprazole Sodium [Protonix] 40 mg PO DAILY 09/02/16 [History] Bed - Hospital [Hospital Bed] 1 each .ROUTE AD #1 each 09/09/16 [Rx] HYDROcodone/Acet 7.5/325 mg [[place] 7.5-325 mg] 1 tab PO Q6H #20 tablet 09/09/16 [Rx] Sennosides/Docusate Sodium [Senna Plus] 2 each PO BID tablet 09/09/16 [Rx] cephALEXin [Keflex] 500 mg PO BID #10 capsule 09/09/16 [Rx] Allergies/Adverse Reactions: Allergies ampicillin Allergy (Verified 07/31/16 11:36) Hives diltiazem [From Cardizem] Allergy (Verified 07/31/16 11:36) Hives Lemon Allergy (Verified 09/04/16 13:46) Vomiting aspirin Adverse Reaction (Verified 07/31/16 11:36) Nausea Oxycodone [From Percocet] Adverse Reaction (Verified 08/19/16 11:37) Nausea Date of admission: 09/02/16 13:30 Primary care physician: Frank Barboza MD Consults: 09/02/16 13:37 Consult to Pulmonology [CONS] Routine Consulting Provider: Pulm Crit Care & Sleep Allison Reason for Consult: worsening SOB with possible mucus plugging Call Completed: Yes 09/03/16 12:34 Consult to Oncology Hematology [CONS] Routine Consulting Provider: Ashkan Garrison Jr Reason for Consult: Lung cancer Call Completed: Yes 09/04/16 10:58 Consult to Palliative Care [CONS] Stat Comment: Consulting Provider: Palliative Care [place] Reason for Consult: GOC, pain management, hospice?? Time Notified: 10:58 Call Completed: Yes 09/07/16 06:15 Consult to Data Communications Analyst [CONS] Routine Reason for SW Consult: would like to see about home health to help with wifes care 09/08/16 09:22 OT [Consult to Occupational Therapy] [CONS] Routine Comment: Evaluate, develop and implement POC Reason for Consult: eval and treat PT [Consult to Physical Therapy] [CONS] Routine Comment: Evaluate, develop and implement POC Reason for Consult: eval and treat Discharging clinician: Peter Garcia Anticipated date of discharge: 09/09/16 - Patient Status Disposition: Hospice - Home Condition: Fair Overall status at discharge: patient is not back to baseline - Discharge Instructions Follow Up With: Frank Barboza MD [Primary Care Provider] - - Diet and Activity Activity: as per physical therapy Diet: regular diet Interval History: Ms. Paul is a 76 year old female with PMH COPD, lung cancer and recent pulmonary embolosim who presented to [facility] on 09/02/2016 with complaints of worsening shortness of breath and hemoptysis. She was found to have small right pleural effusion and endobrachial mass with possible mucus plugging. She was admitted for Pulmonary consultation. Information obtained form chart review and patient report. Patient says she has been SOB since last admission. Says she has her good days and bad days, still with right rib pain. Rates 5/10, nothing makes better, cughing and deep inspiration make worse. Says she noticed a little bleeding on oxygen tubing last night and then coughed up large amt bright red blood this morning. Hospital course: Ms. Paul is a 76 year old female admitted to hemoptysis. she has history of Squamous cell lung cancer. Pt was consult by scraper operator and had bronchoscope done. 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 Oncology and palliative care also saw pt. Pt developped obstructive pneumonia, treated with rocephin. Improved after treatment. Will continue po keflex to finish a 7 day course (pulmonology recommend amoxicilin but pt has allergy to ampicillin). Pt would like to pursue hospice care, this afternoon [facility] hospice service evaluated pt and informed SW that they will arrange home hospice for pt. Pt will discharge home with home hospice. Pt will also see oncologist at office for further option even she is on hospice. I saw and examined pt today, she is awake, alert, oriented x 3. Still cough, and right chest pain. Vitals stable, afebrile x 48 hours. Will d/c home with home hospice now. Pt understand she will go to hospice and what hospice means. - Time Spent with Patient Total time spent providing and/or coordinating discharge services: 40 minutes Greater than 30 minutes - Constitutional Vitals: Temp Pulse Resp BP Pulse Ox 97.6 F 94 20 106/71 87 09/09/16 15:17 09/09/16 15:17 09/09/16 15:57 09/09/16 15:17 09/09/16 15:57 General appearance: Present: mild distress, A&O X 3 - Head Head exam: Present: atraumatic, normocephalic - Eye Eye exam: Present: PERRL, conjuntiva pink, sclera anicteric Pupils: Present: PERRL - Neck Neck exam general surgery: Present: supple, trachea midline. Absent: lymphadenopathy - Respiratory Respiratory exam: Present: decreased breath sounds (On right side), CTAB. Absent: accessory muscle use, rales, rhonchi, wheezes - Cardiovascular Cardiovascular exam: Present: RRR, +S1, +S2. Absent: diastolic murmur, gallop, rubs, systolic murmur - GI/Abdominal GI/Abdominal exam: Present: normal bowel sounds, soft, no peritoneal signs. Absent: distended, tenderness - Extremities Exam Extremities exam: Present: warm, radial pulses palpable and symetrical. Absent : calf tenderness, cyanotic, pedal edema - Neurological Exam Neurological exam: Present: CN II-XII intact, oriented X3, no focal deficits. Absent: pronater drift, facial droop, speech deficit - Skin Skin exam: Present: dry, intact - VTE Documentation of Mechanical Device: Intermittent pneumatic compression device
--- NOTE | 2016-09-09 16:50 | Physician Discharge Referral ---
Home Health/Hosp Referral Info Transfer to: Hospice Provider in Charge Post Discharge: PCP - Diagnosis (1) Squamous cell carcinoma lung Priority: Primary Status: Chronic (2) Pulmonary embolism Status: Acute (3) COPD (chronic obstructive pulmonary disease) Status: Acute (4) DVT prophylaxis Status: Acute (5) Pleural effusion Status: Acute (6) Hemoptysis Status: Acute (7) Obstructive pneumonia Status: Acute - Respiratory Orders Oxygen / L per min (2) Smoking Cessation: Smoking cessation has been advised. For more information, call the [place] Tobacco Quit Line at 2-078-QKLF-NOW. - Diet/Nutrition Diet/Nutrition Orders: Regular - Services Needed Following services are medically necessary services: Nursing, Home Health Aide, Physical Therapy, Occupational Therapy - Transfer Medications Prescriptions: Bed - Hospital [Hospital Bed] 1 each .ROUTE AD #1 each cephALEXin [Keflex] 500 mg PO BID #10 capsule HYDROcodone/Acet 7.5/325 mg [[place] 7.5-325 mg] 1 tab PO Q6H #20 tablet Home Medications: Albuterol Sulfate [Proair Hfa] 2 puff PO Q4H PRN 10/03/15 [History] Alendronate Sodium [Fosamax] 70 mg PO QWEEK MDD thursday10/03/15 [History] Calcium Carbonate [Calcium] 500 mg PO DAILY 10/03/15 [History] Cholecalciferol (Vitamin D3) [Vitamin D3] 5,000 unit PO DAILY 10/03/15 [History] Cyanocobalamin (Vitamin B-12) [Vitamin B-12] 1,000 mcg SL DAILY 10/03/15 [ History] Fluticasone/Salmeterol [Advair 250-50 Diskus] 1 puff IH BID 10/03/15 [History] Gluc/[place]-MSM#1/C/Maciej/Paulie/Bor [Osteo Bi-Flex Caplet] 1 tab PO DAILY 10/03/15 [ History] Oxygen 4 l NS HS 10/03/15 [History] Simvastatin [Zocor] 20 mg PO HS 10/03/15 [History] Tiotropium [Spiriva] 1 puff IH DAILY 10/03/15 [History] Torsemide [Demadex] 10 - 20 mg PO DAILY 10/03/15 [History] Omeprazole [PriLOSEC] 40 mg PO DAILY #30 cap 08/07/16 [Rx] Gabapentin [Neurontin] 300 mg PO HS #30 capsule 08/14/16 [Rx] Zolpidem [Ambien] 10 mg PO HS #30 tablet 08/14/16 [Rx] GuaiFENesin/Codeine [ROBITUSSIN w/CODEINE] 5 ml PO Q6HR PRN #250 liquid [Rx] Pantoprazole Sodium [Protonix] 40 mg PO DAILY 09/02/16 [History] Bed - Hospital [Hospital Bed] 1 each .ROUTE AD #1 each 09/09/16 [Rx] HYDROcodone/Acet 7.5/325 mg [[place] 7.5-325 mg] 1 tab PO Q6H #20 tablet 09/09/16 [Rx] Sennosides/Docusate Sodium [Senna Plus] 2 each PO BID tablet 09/09/16 [Rx] cephALEXin [Keflex] 500 mg PO BID #10 capsule 09/09/16 [Rx] Allergies/Adverse Reactions: Allergies ampicillin Allergy (Verified 07/31/16 11:36) Hives diltiazem [From Cardizem] Allergy (Verified 07/31/16 11:36) Hives Lemon Allergy (Verified 09/04/16 13:46) Vomiting aspirin Adverse Reaction (Verified 07/31/16 11:36) Nausea Oxycodone [From Percocet] Adverse Reaction (Verified 08/19/16 11:37) Nausea Certification: Further, I certify that my clinical findings support that this patient is homebound (i.e. absences from home require considerable and taxing effort and are for medical reasons or anabaptism services or infrequently or short duration when for other reasons) because: Homebound Reason: Patient requires assistance of a person or device to safely leave home Attestation: My signature below is to certify that this patient is under my care and that I, or nurse practitioner, or a physician's front end assistant working with me, has a face-to -face encounter with this patient.
[2016-09-09] MEDS ORDERED: cephALEXin 500 MG CAPSULE PO SCH (21:00)
== END 2016-09-09 18:25 | disposition hospice, home (50) | DRG 208 ==
LOC: EMEROO 09:13 → 3ANU 09:13 → ICNU 09-03 12:28 → 3ANU 09-05 12:43
PROVIDERS: ADMIT Internal Medicine; ATTEND Internal Medicine

== ENCOUNTER 2017-07-31 17:20 | Observation (INO) ==
[2017-07-31] MEDS ORDERED: methylPREDNISolone 125 MG/2 ML VIAL IVP ONE (17:31)
[2017-07-31] MEDS ORDERED: Ipratropium/Albuterol Neb 3 ML IH ONE (17:31)
[2017-07-31] MEDS ORDERED: Isovue-370 500 ML INFUS..BTL IV ONE (17:34)
--- NOTE | 2017-07-31 17:35 | Emergency Department Note ---
Disposition Clinical Impression: Acute exacerbation of chronic obstructive airways disease Lung cancer Qualifiers: Laterality: right Lung location: lower lobe of lung Qualified Code(s): C34.31 - Malignant neoplasm of lower lobe, right bronchus or lung Disposition: Admitted As Inpatient Condition: Serious Forms: ED Satisfaction Letter Time of Disposition: 19:49 SOB HPI - General Chief Complaint: ED Shortness of Breath/Dyspnea Stated Complaint: ATUL,CA PATIENT Time Seen by Provider: 07/31/17 17:28 Source: patient, family Mode of arrival: wheelchair Limitations: no limitations Nursing Notes Reviewed: Yes Vital Signs Reviewed: Yes - History of Present Illness 77-year-old with a history of non-small cell carcinoma lung who presents with increasing shortness of breath. Patient states that she has had pneumonia several times she has had a congested cough. Pt Subjective Complaint: shortness of breath, cough Onset (ago): day(s) Context: recent illness Severity: moderate Consistency/Duration: constant Improves with: nothing Worsens with: exertion Known history of: COPD Associated symptoms: Reports: fever, cough, wheezing Treatment prior to arrival: oxygen Cough Description: Involuntary Cough Frequency: Intermittent - Related Data Home Medications Medication Instructions Recorded Confirmed Cholecalciferol (Vitamin D3) 5,000 unit PO Q48H 10/03/15 07/22/17 [Vitamin D3] Oxygen 3 l NS HS 10/03/15 07/22/17 Albuterol Sulfate [Proair Hfa] 1 puff IH AD PRN 01/14/17 07/22/17 Budesonide/Formoterol 80/4.5 1 puff IH HS 01/14/17 07/22/17 [Symbicort 80/4.5] Fluticasone/Salmeterol [Advair 1 each IH BID 01/14/17 07/22/17 100-50 Diskus] Sennosides [Senna] 2 tab PO BID 02/05/17 07/22/17 Previous Rx's Medication Instructions Recorded Omeprazole [PriLOSEC] 40 mg PO DAILY #30 cap 12/31/16 Ondansetron HCl [Zofran] 4 mg PO Q8H PRN #60 tablet 03/25/17 Prochlorperazine Maleate 10 mg PO Q6HR PRN #90 tablet 03/25/17 [Compazine] Lidocaine/Prilocaine [Emla] 1 appl TP AD PRN #30 gm 04/24/17 Morphine Immed Rel [Morphine 15 mg PO Q4HR PRN #90 tablet 04/24/17 Sulfate] Gabapentin [Neurontin] 300 mg PO HS 30 Days #30 capsule 06/16/17 Morphine Sulfate [Arymo ER] 15 mg PO QAM 30 Days #30 tab.po.er 07/14/17 Morphine Sulfate [Arymo ER] 30 mg PO QPM 30 Days #30 tab.po.er 07/14/17 ALPRAZolam [Xanax 0.25 MG Tablet] 0.25 mg PO BID PRN 30 Days #60 07/22/17 tablet Dexamethasone [Decadron] 4 mg PO BID PRN #42 tab 07/22/17 Furosemide [Lasix] 20 mg PO DAILY #30 tablet 07/22/17 GuaiFENesin/Codeine [Robitussin 5 ml PO Q6HR PRN 30 Days #240 ml 07/22/17 w/Codeine] Potassium Chloride 10 meq PO DAILY #30 tab.er.prt 07/22/17 Simvastatin [Zocor] 20 mg PO HS #30 tablet 07/22/17 Sucralfate [Carafate] 1 gm PO TID #90 tablet 07/22/17 Allergies Allergy/AdvReac Type Severity Reaction Status Date / Time ampicillin Allergy Hives Verified 04/29/17 13:23 diltiazem [From Cardizem] Allergy Hives Verified 04/29/17 13:23 aspirin AdvReac Nausea Verified 04/29/17 13:23 Oxycodone [From Percocet] AdvReac Nausea Verified 04/29/17 13:23 All systems ED: reviewed and negative except as stated. Constitutional: Denies: fever, chills, weakness, weight change Eyes: Denies: eye pain, eye discharge, vision change ENT ED: Denies: ear pain, throat pain, dental pain, hearing loss, epistaxis, congestion, dysphagia Cardiovascular: Denies: chest pain, palpitations, dyspnea on exertion, edema, syncope Respiratory: Reports: cough, dyspnea, wheezes. Denies: hemoptysis, stridor Gastrointestinal: Denies: abdominal pain, nausea, vomiting, diarrhea, constipation, hematemesis, melena, hematochezia Genitourinary: Denies: dysuria, frequency, hematuria, discharge Musculoskeletal: Denies: back pain, neck pain, arthralgia, myalgia Integumentary: Denies: rash, abrasion, lesions Neurological: Denies: headache, weakness, numbness, paresthesias, confusion, abnormal gait, vertigo Psychiatric: Denies: anxiety, depression, suicidal thoughts, homicidal thoughts , auditory hallucinations, visual hallucinations Endocrine: Denies: fatigue Hematological/Lymphatic: Denies: easy bleeding, easy bruising Allergic/Immunologic: Denies: facial swelling, urticaria Past Medical History - Past Medical History Medical history: Reports: asthma, cancer, COPD, DVT, diabetes, glaucoma, hyperlipidemia, hypertension, pulmonary embolus, other Surgical history: Reports: appendectomy (1956), orthopedic, other (Right shoulder arthroscopy s/t rotator cuff tear - Dr. Harry 12/2010; ORIF left humerus 10/07/2014), DANA/BSO (1973), other (Bladder suspension September 2008) Psychiatric history: Reports: no psych history - Social History Smoking Status: Never smoker Smokeless Tobacco Status: No Alcohol use: Reports: none Drug use: Reports: none Physical Exam - General Limitations: no limitations General appearance: alert, in no apparent distress - Head Head exam: atraumatic, normocephalic, normal inspection - Eye Eye exam: Present: normal appearance, PERRL, EOMI - ENT ENT exam: normal exam, normal oropharynx, mucous membranes moist - Neck Neck exam: Present: normal inspection, full ROM, trachea midline - Chest Chest inspection: Present: normal inspection, symmetric chest wall rise - Respiratory Respiratory exam: Present: wheezes, accessory muscle use, prolonged expiratory phase - Cardiovascular Cardiovascular exam: Present: regular rate, normal rhythm, normal heart sounds - Abdominal Exam Abdominal exam: Present: soft, Non-Tender. Absent: tenderness, distention, guarding, rebound, rigidity - Extremities Exam Extremities exam: Present: normal inspection, full ROM. Absent: tenderness, pedal edema - Expanded Lower Extremity Exam Neurovascular/Tendon exam: Absent: motor deficit, sensory deficit, tendon deficit Gait: observed and normal - Back Exam Back exam: Present: normal inspection, full ROM. Absent: tenderness - Neurological Exam Neurological exam: Present: alert, oriented X3 - Psychiatric Psychiatric exam: Present: normal affect, normal mood - Skin Skin exam: Present: warm, dry, intact, normal color Course - Reevaluation(s) Reevaluation #1: 77-year-old with a history of lung cancer comes in with increasing shortness of breath. CT scan shows a significantly large right-sided tumor that appears to be stable based on comparison with previous CT scan. Patient has diffuse wheezing. For further evaluation and treatment. Time: 19:48 - Consultations Consultation #1: Discussed with , admit. Time: 19:47 Vital Signs Temperature 99.0 F 07/31/17 17:28 Pulse Rate 117 07/31/17 17:28 Respiratory Rate 22 07/31/17 17:28 Blood Pressure 116/89 07/31/17 17:28 O2 Sat by Pulse Oximetry 96 07/31/17 17:28 Temperature 99.0 F 07/31/17 17:28 Pulse Rate 117 07/31/17 17:28 Respiratory Rate 22 07/31/17 17:53 Blood Pressure 116/89 07/31/17 17:28 O2 Sat by Pulse Oximetry 95 07/31/17 18:02 Oxygen Delivery Oxygen Delivery Nasal Cannula Shortness of Breath/Dyspnea - Lab Data Result diagrams: 07/31/17 17:31 07/31/17 17:31 Lab Results 07/31/17 07/31/17 07/31/17 Range/Units 17:31 17:31 17:31 WBC 12.0 H (4.3-11.1) K/mcL RBC 3.13 L (3.82-4.97) M/mcL Hgb 7.7 L (11.5-15.4) g/dL Hct 25.0 L (35.3-44.9) % MCV 79.9 L (83.0-100.0) fL MCH 24.6 L (28.0-33.3) pg MCHC 30.8 L (31.6-35.5) g/dL RDW 21.3 H (11.5-14.5) % Plt Count 173 (140-400) K/mcL MPV 9.1 L (9.4-12.4) fL Immature Gran % 0.7 (0-4) % Seg Neutrophils % 77.9 % Lymphocytes % 6.3 % Monocytes % 14.8 % Eosinophils % 0.3 % Basophils % 0.0 % Neutrophils # 9.4 H (1.6-8.9) K/mcL Lymphocytes # 0.8 (0.6-4.6) K/mcL Monocytes # 1.8 H (0.0-1.3) K/mcL Eosinophils # 0.0 (0.0-0.6) K/mcL Basophils # 0.0 (0.0-0.2) K/mcL Nucleated RBCs/100 WBC 0.2 H (0) /100 WBC Sodium 135 L (136-145) mEq/L Potassium 3.9 (3.5-5.1) mEq/L Chloride 98 (98-107) mEq/L Carbon Dioxide 30 H (23-29) mEq/L BUN 13 (8-23) mg/dL Creatinine 0.64 (0.60-1.20) mg/dL Est GFR ( Amer) > 60 (> 60) Est GFR (Non-Af Amer) > 60 (> 60) BUN/Creatinine Ratio 20 (6-26) Glucose 129 H (70-105) mg/dL Calculated Osmolality 282 (280-300) Lactic Acid (0.5-2.2) mmol/L Calcium 8.6 (8.6-10.3) mg/dL Troponin I 0.04 H* (< 0.04) ng/mL B-Natriuretic Peptide 376 H (Less than 100) pg/mL 07/31/17 Range/Units 17:56 WBC (4.3-11.1) K/mcL RBC (3.82-4.97) M/mcL Hgb (11.5-15.4) g/dL Hct (35.3-44.9) % MCV (83.0-100.0) fL MCH (28.0-33.3) pg MCHC (31.6-35.5) g/dL RDW (11.5-14.5) % Plt Count (140-400) K/mcL MPV (9.4-12.4) fL Immature Gran % (0-4) % Seg Neutrophils % % Lymphocytes % % Monocytes % % Eosinophils % % Basophils % % Neutrophils # (1.6-8.9) K/mcL Lymphocytes # (0.6-4.6) K/mcL Monocytes # (0.0-1.3) K/mcL Eosinophils # (0.0-0.6) K/mcL Basophils # (0.0-0.2) K/mcL Nucleated RBCs/100 WBC (0) /100 WBC Sodium (136-145) mEq/L Potassium (3.5-5.1) mEq/L Chloride (98-107) mEq/L Carbon Dioxide (23-29) mEq/L BUN (8-23) mg/dL Creatinine (0.60-1.20) mg/dL Est GFR ( Amer) (> 60) Est GFR (Non-Af Amer) (> 60) BUN/Creatinine Ratio (6-26) Glucose (70-105) mg/dL Calculated Osmolality (280-300) Lactic Acid 0.8 (0.5-2.2) mmol/L Calcium (8.6-10.3) mg/dL Troponin I (< 0.04) ng/mL B-Natriuretic Peptide (Less than 100) pg/mL - EKG Data EKG attestation: Yes I reviewed and interpreted this EKG. EKG shows normal: Reports: sinus rhythm Rate: Reports: tachycardia Rhythm: Reports: NSR Satanta/QRS: Reports: normal Interpretation: Reports: no acute changes
[2017-07-31 18:10] LABS: Eosinophils % 0.3 %; Hemoglobin 7.7 g/dL (11.5-15.4); Immature Granulocytes % 0.7 % (0-4); Lymphocytes # 0.8 K/mcL (0.6-4.6); Lymphocytes % 6.3 %; Mean Corpuscular HGB Conc 30.8 g/dL (31.6-35.5); Mean Corpuscular Hemoglobin 24.6 pg (28.0-33.3); Mean Corpuscular Volume 79.9 fL (83.0-100.0); Mean Platelet Volume 9.1 fL (9.4-12.4); Monocytes # 1.8 K/mcL (0.0-1.3); Monocytes % 14.8 %; Neutrophils # 9.4 K/mcL (1.6-8.9); Nucleated Red Blood Cells 0.2 /100 WBC (0); Platelet Count 173 K/mcL (140-400); Red Blood Count 3.13 M/mcL (3.82-4.97); Red Cell Distribution Width 21.3 % (11.5-14.5); Segmented Neutrophils % 77.9 %
[2017-07-31 18:36] LABS: BUN/Creatinine Ratio 20 (6-26); Blood Urea Nitrogen 13 mg/dL (8-23); Calcium 8.6 mg/dL (8.6-10.3); Carbon Dioxide 30 mEq/L (23-29); Chloride 98 mEq/L (98-107); Glucose 129 mg/dL (70-105); Osmolality,Calculated 282 (280-300); Potassium 3.9 mEq/L (3.5-5.1); Sodium 135 mEq/L (136-145); eGFR For African Americans > 60 (> 60); eGFR For Non-African Americans > 60 (> 60)
[2017-07-31 18:41] LABS: Troponin I 0.04 ng/mL (< 0.04)
--- NOTE | 2017-07-31 19:55 | Internal Med History&Physical ---
Date of Encounter: 07/31/17 Time of Encounter: 20:00 Internal Medicine - H&P: HPI Chief complaint: Shortness of breath Admitted From: Home History of present illness: Ms. 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 At her baseline she can walk room to room and the rest herself on 3 L oxygen. She denies any sick contacts but reports fever today. No significant sore throat or rhinorrhea. In the emergency room CT PE was obtained which did not show pulmonary embolism. She was noted to have a right right-sided lung mass with consolidation in the right base and paraMediastinal fibrosis suggestive of prior radiation exposure. 11 system review of systems was negative. Past Med Surg Social Fam HX - Past Medical History Medical history: asthma, cancer, COPD, DVT, diabetes, glaucoma, hyperlipidemia, hypertension, pulmonary embolus, other Psychiatric history: no psych history - Past Surgical History Surgical History: appendectomy (1956), orthopedic, other (Right shoulder arthroscopy s/t rotator cuff tear - Dr. Harry 12/2010; ORIF left humerus 2014), DANA/BSO (1973), other (Bladder suspension September 2008) - Social History Smoking Status: Never smoker Smokeless Tobacco Status: No Alcohol use: none Drug use: none - Family History Father Living Status: Hx Family Cardiac Disorders: Yes Hx Family Respiratory Disorders: Yes Hx Family Cancer: Yes (Breast, lymph nodes, cervical) Hx Family GI Disorders: No Hx Family Endocrine Disorder: Yes (Diabetes) Hx Family Neuromuscular Disorders: No Hx Family Neurologic Disorders: No (nerve and muscle problems) Hx Family HEENT Disorders: No Hx Family Autoimmune Disorders: No Internal Medicine - H&P: Meds Cholecalciferol (Vitamin D3) [Vitamin D3] 5,000 unit PO Q48H 10/03/15 [History] Oxygen 3 l NS HS 10/03/15 [History] Albuterol Sulfate [Proair Hfa] 1 puff IH AD PRN 01/14/17 [History] Budesonide/Formoterol 80/4.5 [Symbicort 80/4.5] 1 puff IH HS 01/14/17 [History] Fluticasone/Salmeterol [Advair 100-50 Diskus] 1 each IH BID 01/14/17 [History] Sennosides [Senna] 2 tab PO BID 02/05/17 [History] Ondansetron HCl [Zofran] 4 mg PO Q8H PRN #60 tablet 03/25/17 [Rx] Prochlorperazine Maleate [Compazine] 10 mg PO Q6HR PRN #90 tablet 03/25/17 [Rx] Lidocaine/Prilocaine [Emla] 1 appl TP AD PRN #30 gm 04/24/17 [Rx] Morphine Immed Rel [Morphine Sulfate] 15 mg PO Q4HR PRN #90 tablet 04/24/17 [Rx] Gabapentin [Neurontin] 300 mg PO HS 30 Days #30 capsule 06/16/17 [Rx] Morphine Sulfate [Arymo ER] 15 mg PO QAM 30 Days #30 tab.po.er 07/14/17 [Rx] Morphine Sulfate [Arymo ER] 30 mg PO QPM 30 Days #30 tab.po.er 07/14/17 [Rx] ALPRAZolam [Xanax 0.25 MG Tablet] 0.25 mg PO BID PRN 30 Days #60 tablet [Rx] Dexamethasone [Decadron] 4 mg PO BID PRN #42 tab 07/22/17 [Rx] Furosemide [Lasix] 20 mg PO DAILY #30 tablet 07/22/17 [Rx] GuaiFENesin/Codeine [Robitussin w/Codeine] 5 ml PO Q6HR PRN 30 Days #240 ml 02/28 [Rx] Potassium Chloride 10 meq PO DAILY #30 tab.er.prt 07/22/17 [Rx] Simvastatin [Zocor] 20 mg PO HS #30 tablet 07/22/17 [Rx] Sucralfate [Carafate] 1 gm PO TID #90 tablet 07/22/17 [Rx] Omeprazole [PriLOSEC] 40 mg PO DAILY PRN 07/31/17 [History] 3 Allergy/AdvReac Type Severity Reaction Status Date / Time ampicillin Allergy Hives Verified 07/31/17 19:59 diltiazem [From Cardizem] Allergy Hives Verified 07/31/17 19:59 aspirin AdvReac Nausea Verified 07/31/17 19:59 Oxycodone [From Percocet] AdvReac Nausea Verified 07/31/17 19:59 All Systems PM: A 10-system review of systems was performed and is negative for pertinent findings except as documented above in the HPI. - Constitutional Vitals: Temp Pulse Resp BP Pulse Ox 99.0 F 117 22 116/89 95 07/31/17 17:28 07/31/17 17:28 07/31/17 17:53 07/31/17 17:28 07/31/17 18:02 General appearance: Present: A&O X 3, pleasant, no acute distress Exam: Physical exam Gen: Comfortable, laying in bed, in no visible distress HEENT: Normocephalic, atraumatic. No conjunctival icterus. Moist oral mucosa. Neck: Supple Lungs: Diminished at the right base anteriorly and posteriorly. No foreign sounds Heart: Normal S1-S2, no murmurs rubs or gallops Abdomen: Normoactive bowel sounds, no guarding rigidity or tenderness Extremities: No edema clubbing or cyanosis Neuro: Alert oriented 3, no focal deficits Skin: No skin lesions Internal Med - H&P Results - Labs CBC & Chem 7: 07/31/17 17:31 07/31/17 17:31 Labs: Short CBC 07/31/17 Range/Units 17:31 WBC 12.0 H (4.3-11.1) K/mcL Hgb 7.7 L (11.5-15.4) g/dL Hct 25.0 L (35.3-44.9) % Plt Count 173 (140-400) K/mcL Neutrophils # 9.4 H (1.6-8.9) K/mcL BMP 07/31/17 17:31 Sodium 135 L Potassium 3.9 Chloride 98 Carbon Dioxide 30 H BUN 13 Creatinine 0.64 Glucose 129 H Calcium 8.6 Cardiac Enzymes 07/31/17 Range/Units 17:31 Troponin I 0.04 H* (< 0.04) ng/mL - Impressions ITS Impressions Chest X-Ray 07/31/17 17:31 IMPRESSION: Increased opacification at the right lung base could represent atelectasis or pneumonia. D/ / Tin Russo MD / Tin Russo MD Interpreting Provider: Tin Russo MD Chest CTA 07/31/17 17:34 IMPRESSION: No CT evidence pulmonary embolism. Overall stable intrathoracic findings described below. Again identified are extensive changes within the right lung with masslike consolidation within the right lung base as well as paramediastinal fibrosis. Findings are similar the prior study. The consolidation could represent pneumonia and/or post radiation changes although underlying neoplasm cannot be excluded. Also again identified is wall thickening of the esophagus. Correlation for inflammation is recommended. D/ / Nery Godinez Cha, MD / Nery Godinez Cha, MD Interpreting Provider: Nery Godinez Cha, MD - Assessment and plan (1) Acute exacerbation of chronic obstructive airways disease Current Visit: Yes Status: Acute Assessment and plan: Start prednisone and bronchodilators. 5 day course of Z-Cornell. Will expand antibody coverage based on clinical course. HCAP Cannot be conclusively ruled out but given her clinical stability it is less likely. (2) Squamous cell carcinoma lung Current Visit: No Status: Chronic Assessment and plan: Currently on chemotherapy. Originally diagnosed in 2015 with recurrence and subsequent reinitiation of chemotherapy in December 2016. Qualifiers: Laterality: right Qualified Code(s): C34.91 - Malignant neoplasm of unspecified part of right bronchus or lung (3) Pulmonary embolism Current Visit: No Status: Resolved Assessment and plan: Currently off anticoagulation Qualifiers: Pulmonary embolism type: other Chronicity: acute Acute cor pulmonale presence: without acute cor pulmonale Qualified Code(s): I26.99 - Other pulmonary embolism without acute cor pulmonale (4) Obstructive pneumonia Current Visit: No Status: Acute Assessment and plan: Send respiratory PCR for viruses Respiratory cultures and urine antigens for Legionella and PNEUMOCOCCUS Blood cultures sent by ED (5) DVT prophylaxis Current Visit: No Status: Acute - Time Spent With Patient Total time spent is greater than 50% in coordination of care (as documented) at patient's floor/unit and/or counseling patient: 25 - 35 minutes
[2017-07-31] MEDS ORDERED: Albuterol 2.5 MG/3 ML NEBULIZER IH PRN (20:22)
[2017-07-31] MEDS ORDERED: ALPRAZolam 0.25 MG TABLET PO PRN (20:37)
[2017-07-31] MEDS ORDERED: GuaiFENesin/Codeine Oral Soln 5 ML UDC PO PRN (20:37)
[2017-07-31] MEDS ORDERED: Azithromycin 250 MG TABLET PO ONE (20:41)
[2017-07-31] MEDS ORDERED: Naloxone 0.4 MG/ML INJ IVP PRN (21:15)
[2017-07-31] MEDS: Albuterol 2.5 MG/3 ML NEBULIZER IH SCH (21:30)
[2017-08-01] MEDS: predniSONE 20 MG TABLET PO SCH ×2 (00:08→09:41)
[2017-08-01] MEDS: Gabapentin 300 MG CAPSULE PO SCH ×2 (00:09→20:55)
[2017-08-01] MEDS: *HR* Morphine Sulfate SR (12 HR) 30 MG TABLET.ER PO SCH ×2 (00:09→20:55)
[2017-08-01] MEDS: Sennosides 8.6 MG TABLET PO SCH ×3 (00:09→20:55)
[2017-08-01] MEDS: Sucralfate 1 GM TABLET PO SCH ×4 (00:10→20:55)
[2017-08-01] MEDS: Albuterol 2.5 MG/3 ML NEBULIZER IH SCH ×7 (00:11→23:40)
[2017-08-01 00:37] LABS: Adenovirus Not Detected (Not Detect); Bordetella Pertussis Not Detected (Not Detect); Chlamydophila pneumoniae Not Detected (Not Detect); Coronavirus 229E Not Detected (Not Detect); Coronavirus HKU1 Not Detected (Not Detect); Coronavirus NL63 Not Detected (Not Detect); Coronavirus OC43 Not Detected (Not Detect); Human Metapneumovirus Not Detected (Not Detect); Human Rhinovirus/Enterovirus Not Detected (Not Detect); Influenza A Subtype 2009 H1 Not Detected (Not Detect); Influenza A Untypeable Not Detected (Not Detect); Influenza B Not Detected (Not Detect); Mycoplasma pneumoniae Not Detected (Not Detect); Parainfluenza Virus 1 Not Detected (Not Detect); Parainfluenza Virus 2 Not Detected (Not Detect); Parainfluenza Virus 3 Not Detected (Not Detect); Parainfluenza Virus 4 Not Detected (Not Detect); Respiratory Syncytial Virus Not Detected (Not Detect)
[2017-08-01 04:29] LABS: Basophils % 0.1 %; Hematocrit 23.2 % (35.3-44.9); Hemoglobin 7.1 g/dL (11.5-15.4); Immature Granulocytes % 0.5 % (0-4); Lymphocytes # 0.3 K/mcL (0.6-4.6); Lymphocytes % 2.6 %; Mean Corpuscular HGB Conc 30.6 g/dL (31.6-35.5); Mean Corpuscular Hemoglobin 24.2 pg (28.0-33.3); Mean Corpuscular Volume 79.2 fL (83.0-100.0); Mean Platelet Volume 9.3 fL (9.4-12.4); Monocytes # 0.2 K/mcL (0.0-1.3); Monocytes % 2.5 %; Platelet Count 159 K/mcL (140-400); Red Blood Count 2.93 M/mcL (3.82-4.97); Red Cell Distribution Width 21.4 % (11.5-14.5); Segmented Neutrophils % 94.3 %
[2017-08-01 04:49] LABS: Alanine Aminotransferase 16 Units/L (7-52); Albumin 2.9 g/dL (3.5-5.7); Alkaline Phosphatase 208 Units/L (34-104); Aspartate Amino Transferase 16 Units/L (13-39); BUN/Creatinine Ratio 25 (6-26); Bilirubin,Total 0.3 mg/dL (0.3-1.0); Blood Urea Nitrogen 15 mg/dL (8-23); Calcium 8.8 mg/dL (8.6-10.3); Carbon Dioxide 30 mEq/L (23-29); Chloride 97 mEq/L (98-107); Glucose 233 mg/dL (70-105); Osmolality,Calculated 286 (280-300); Potassium 3.6 mEq/L (3.5-5.1); Sodium 134 mEq/L (136-145); Total Protein 5.9 g/dL (6.4-8.9); eGFR For African Americans > 60 (> 60); eGFR For Non-African Americans > 60 (> 60)
[2017-08-01] MEDS: *HR* Enoxaparin 40 MG/0.4 ML SYRINGE SQ SCH (05:43)
[2017-08-01] MEDS: Furosemide 40 MG TABLET PO SCH (09:41)
[2017-08-01] MEDS: Cholecalciferol (D-3) 1,000 UNIT TABLET PO SCH (09:42)
--- NOTE | 2017-08-01 11:39 | Internal Med Progress Note ---
Date of Encounter: 08/01/17 Time of Encounter: 11:30 - Assessment and plan (1) Acute exacerbation of chronic obstructive airways disease Current Visit: Yes Status: Acute Assessment and plan: Finish 5 days of prednisone and continue bronchodilators. 5 day course of Z-Cornell. (2) Squamous cell carcinoma lung Current Visit: No Status: Chronic Assessment and plan: Currently on chemotherapy. Originally diagnosed in 2015 with recurrence and subsequent reinitiation of chemotherapy in December 2016. (3) Pulmonary embolism Current Visit: No Status: Resolved Assessment and plan: Currently off anticoagulation Qualifiers: Pulmonary embolism type: other Chronicity: acute Acute cor pulmonale presence: without acute cor pulmonale Qualified Code(s): I26.99 - Other pulmonary embolism without acute cor pulmonale (4) Obstructive pneumonia Current Visit: No Status: Acute Assessment and plan: Negative respiratory PCR for viruses Respiratory cultures pending and negative urine antigens for Legionella and PNEUMOCOCCUS Blood cultures sent by ED (5) DVT prophylaxis Current Visit: No Status: Acute - Time Spent With Patient Total time spent is greater than 50% in coordination of care (as documented) at patient's floor/unit and/or counseling patient: 25 - 35 minutes - Constitutional Vitals: Temp Pulse Resp BP Pulse Ox 97.5 F L 90 19 102/67 98 08/01/17 11:13 08/01/17 11:13 08/01/17 11:13 08/01/17 11:13 08/01/17 11:13 General appearance: Present: A&O X 3, pleasant, no acute distress Exam: Physical exam Gen: Comfortable, laying in bed, in no visible distress HEENT: Normocephalic, atraumatic. No conjunctival icterus. Moist oral mucosa. Neck: Supple Lungs: Diminished at the right base anteriorly and posteriorly. No foreign sounds Heart: Normal S1-S2, no murmurs rubs or gallops Abdomen: Normoactive bowel sounds, no guarding rigidity or tenderness Extremities: No edema clubbing or cyanosis Neuro: Alert oriented 3, no focal deficits Skin: No skin lesions Internal Medicine: Result - Labs CBC & Chem 7: 08/01/17 03:37 08/01/17 03:37 Labs: Short CBC 08/01/17 Range/Units 03:37 WBC 9.5 (4.3-11.1) K/mcL Hgb 7.1 L (11.5-15.4) g/dL Hct 23.2 L (35.3-44.9) % Plt Count 159 (140-400) K/mcL Neutrophils # 9.0 H (1.6-8.9) K/mcL BMP 08/01/17 03:37 Sodium 134 L Potassium 3.6 Chloride 97 L Carbon Dioxide 30 H BUN 15 Creatinine 0.60 Glucose 233 H Calcium 8.8 Cardiac Enzymes 08/01/17 Range/Units 03:37 Troponin I 0.05 H* (< 0.04) ng/mL Liver Function 08/01/17 Range/Units 03:37 Total Bilirubin 0.3 (0.3-1.0) mg/dL AST 16 (13-39) Units/L ALT 16 (7-52) Units/L Alkaline Phosphatase 208 H (34-104) Units/L Albumin 2.9 L (3.5-5.7) g/dL Consult Discharge Plan - Plan Referrals: Frank Barboza MD [Primary Care Provider] -
[2017-08-01] MEDS ORDERED: *HR* Morphine Sulfate SR (12 HR) 15 MG TABLET.ER PO SCH (11:43)
[2017-08-01] MEDS: *HR* Morphine Sulfate SR (12 HR) 15 MG TABLET.ER PO SCH (12:52)
[2017-08-02] MEDS: Albuterol 2.5 MG/3 ML NEBULIZER IH SCH ×4 (04:20→15:38)
[2017-08-02] MEDS: *HR* Enoxaparin 40 MG/0.4 ML SYRINGE SQ SCH (05:23)
[2017-08-02] MEDS: Cholecalciferol (D-3) 1,000 UNIT TABLET PO SCH (08:01)
[2017-08-02] MEDS: *HR* Morphine Sulfate SR (12 HR) 15 MG TABLET.ER PO SCH (08:01)
[2017-08-02] MEDS: Sucralfate 1 GM TABLET PO SCH ×2 (08:01→14:04)
[2017-08-02] MEDS: predniSONE 20 MG TABLET PO SCH (08:01)
[2017-08-02] MEDS: Sennosides 8.6 MG TABLET PO SCH (08:01)
[2017-08-02] MEDS: Furosemide 40 MG TABLET PO SCH (08:02)
--- NOTE | 2017-08-02 11:04 | Discharge Summary ---
- NOTES TO OUTPATIENT PROVIDER Notes to Outpatient Provider: Repeat CBC in 1 week post discharge around August 09, 2017 Orders not resulted at time of discharge: Pending orders Date of Encounter: 08/02/17 Time of Encounter: 11:00 - Discharge Diagnosis (1) Acute exacerbation of chronic obstructive airways disease Priority: Primary Status: Acute Comments: Respiratory PCR was negative. She did not produce enough sputum to give us respiratory cultures. She had a benign question his hospitalization and will be sent home on a total 5 day course of prednisone and azithromycin. 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 Considering her history of malignancy she is at high risk for recurrence. I would defer this to oncology to decide if she needs and correlation once she is on chemotherapy. Qualifiers: Pulmonary embolism type: other Chronicity: acute Acute cor pulmonale presence: without acute cor pulmonale Qualified Code(s): I26.99 - Other pulmonary embolism without acute cor pulmonale (4) Obstructive pneumonia Priority: Primary Status: Ruled-out Comments: Unlikely (5) Anemia Priority: Secondary Status: Acute Comments: There is no evidence of bleeding. She is hemodynamically stable. Her anemia is likely related to chemotherapy. Oncology was planning blood transfusion in clinic. We will transfuse 1 unit and repeat CBC in about 1 week. Qualifiers: Qualified Code(s): D61.810 - Antineoplastic chemotherapy induced pancytopenia ; T45.1X5A - Adverse effect of antineoplastic and immunosuppressive drugs, initial encounter; T45.1X5A - Adverse effect of antineoplastic and immunosuppressive drugs, initial encounter Hospital course: Ms. Paul is a 77 year old female with prior history of severe COPD, chronic respiratory failure with hypoxemia, squamous cell cancer of the right lung status post chemotherapy after original diagnosis any 16 with recurrence most recently in December 2016 continue on chemotherapy presented to the emergency room with shortness of breath and cough with clear expectoration about her baseline. Initial x-ray showed right-sided opacity lower lobe which on CT a chest was suggestive of right hilar mass with collapse of the lower lobes and partial collapse of the middle lobe on the right. She did not have leukocytosis. She denied any exposure to sick contacts. A viral panel was sent which was negative she did not produce enough sputum to give respiratory cultures. Her course was relatively benign except for anemia which we attribute to chemotherapy. Her last chemotherapy therapy was earlier this month. She will finish a 5 day course of prednisone and azithromycin. We have prescribed her maintenance inhalers Spiriva and Symbicort in addition to albuterol. She will resume using her oxygen as usual. A prescription for a CBC in 1 week was provided to the check her hematocrit hemoglobin Discharge discussed with: patient - Time Spent with Patient Total time spent providing and/or coordinating discharge services: Greater than 30 minutes Specific discharge activities: Check CBC in 1 week - Discharge Medications Prescriptions: Azithromycin 250 mg PO DAILY #3 tablet Budesonide/Formoterol 160/4.5 [Symbicort 160/4.5] 2 puff IH BIDR 30 Days #1 hfa.aer.ad predniSONE [PredniSONE] 40 mg PO DAILY #4 tablet Tiotropium [Spiriva] 18 mcg IH 0700 30 Days #30 capsule Home Medications: Cholecalciferol (Vitamin D3) [Vitamin D3] 5,000 unit PO Q48H 10/03/15 [History] Oxygen 3 l NS HS 10/03/15 [History] Albuterol Sulfate [Proair Hfa] 1 puff IH AD PRN 01/14/17 [History] Sennosides [Senna] 2 tab PO BID 02/05/17 [History] Ondansetron HCl [Zofran] 4 mg PO Q8H PRN #60 tablet 03/25/17 [Rx] Prochlorperazine Maleate [Compazine] 10 mg PO Q6HR PRN #90 tablet 03/25/17 [Rx] Lidocaine/Prilocaine [Emla] 1 appl TP AD PRN #30 gm 04/24/17 [Rx] Morphine Immed Rel [Morphine Sulfate] 15 mg PO Q4HR PRN #90 tablet 04/24/17 [Rx] Gabapentin [Neurontin] 300 mg PO HS 30 Days #30 capsule 06/16/17 [Rx] Morphine Sulfate [Arymo ER] 30 mg PO QPM 30 Days #30 tab.po.er 07/14/17 [Rx] ALPRAZolam [Xanax 0.25 MG Tablet] 0.25 mg PO BID PRN 30 Days #60 tablet [Rx] Dexamethasone [Decadron] 4 mg PO BID PRN #42 tab 07/22/17 [Rx] Furosemide [Lasix] 20 mg PO DAILY #30 tablet 07/22/17 [Rx] GuaiFENesin/Codeine [ROBITUSSIN w/CODEINE] 5 ml PO Q6HR PRN 30 Days #240 ml 02/28 [Rx] Potassium Chloride 10 meq PO DAILY #30 tab.er.prt 07/22/17 [Rx] Simvastatin [Zocor] 20 mg PO HS #30 tablet 07/22/17 [Rx] Sucralfate [Carafate] 1 gm PO TID #90 tablet 07/22/17 [Rx] Omeprazole [PriLOSEC] 40 mg PO DAILY PRN 07/31/17 [History] Albuterol Neb [Proventil Neb] 2.5 mg IH Q2H PRN inhsol 08/02/17 [Rx] Albuterol Neb [Proventil Neb] 2.5 mg IH [id number] inhsol 08/02/17 [Rx] Azithromycin 250 mg PO DAILY #3 tablet 08/02/17 [Rx] Budesonide/Formoterol 160/4.5 [Symbicort 160/4.5] 2 puff IH BIDR 30 Days #1 hfa.aer.ad 08/02/17 [Rx] Tiotropium [Spiriva] 18 mcg IH 0700 30 Days #30 capsule 08/02/17 [Rx] predniSONE [PredniSONE] 40 mg PO DAILY #4 tablet 08/02/17 [Rx] Allergies/Adverse Reactions: 3 Allergy/AdvReac Type Severity Reaction Status Date / Time ampicillin Allergy Hives Verified 07/31/17 19:59 diltiazem [From Cardizem] Allergy Hives Verified 07/31/17 19:59 aspirin AdvReac Nausea Verified 07/31/17 19:59 Oxycodone [From Percocet] AdvReac Nausea Verified 07/31/17 19:59 Date of admission: 07/31/17 21:45 Primary care physician: Frank Barboza MD Discharging clinician: Jeffery Byers Anticipated date of discharge: 08/02/17 - Constitutional Vitals: Temp Pulse Resp BP Pulse Ox 97.8 F 96 20 106/58 100 08/02/17 07:12 08/02/17 07:12 08/02/17 08:00 08/02/17 07:12 08/02/17 08:00 General appearance: Present: A&O X 3, pleasant, no acute distress Exam: Physical exam Gen: Comfortable, laying in bed, in no visible distress HEENT: Normocephalic, atraumatic. No conjunctival icterus. Moist oral mucosa. Neck: Supple Lungs: Clear to auscultation, no foreign sounds, diminished breath sounds Heart: Normal S1-S2, no murmurs rubs or gallops Abdomen: Normoactive bowel sounds, no guarding rigidity or tenderness Extremities: No edema clubbing or cyanosis Neuro: Alert oriented 3, no focal deficits Skin: No skin lesions - Patient Status Disposition: Home, Self-Care Functional capacity at discharge: independent ambulation Overall status at discharge: patient is back to baseline - Ambulatory Orders Ambulatory Orders: Complete Blood Count [HEME] Time Frame: 1 Week, Facility: [facility], Location: Lab - Discharge Instructions Follow Up With: Frank Barboza MD [Primary Care Provider] - Additional Instructions: CBC 1 week - Diet and Activity Activity: increase activity as tolerated Diet: advance to your usual diet
[2017-08-02] MEDS ORDERED: 0.9 % Sodium Chloride 500 ML ONE (13:55)
[2017-08-02 16:34] VITALS: BP 121/73
[2017-08-02 18:05] LABS: Basophils % 0.1 %; Hematocrit 28.4 % (35.3-44.9); Immature Granulocytes % 1.8 % (0-4); Lymphocytes # 0.1 K/mcL (0.6-4.6); Lymphocytes % 0.5 %; Mean Corpuscular Hemoglobin 26.1 pg (28.0-33.3); Mean Corpuscular Volume 81.6 fL (83.0-100.0); Mean Platelet Volume 9.4 fL (9.4-12.4); Monocytes # 0.9 K/mcL (0.0-1.3); Monocytes % 4.2 %; Neutrophils # 20.9 K/mcL (1.6-8.9); Nucleated Red Blood Cells 0.1 /100 WBC (0); Platelet Count 247 K/mcL (140-400); Red Blood Count 3.48 M/mcL (3.82-4.97); Red Cell Distribution Width 20.3 % (11.5-14.5); Segmented Neutrophils % 93.4 %
[2017-08-02 18:08] LABS: Hemoglobin 9.1 g/dL (11.5-15.4)
[2017-08-02 18:20] LABS: Platelet Estimate Normal (Normal)
[2017-08-02 18:21] LABS: Anisocytosis 1+ (Not Present); Poikilocytosis 1+ (Not Present)
--- NOTE | 2017-08-04 05:23 | Electrocardiograph Report ---
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
== END 2017-08-02 18:53 | disposition home or self-care (01) ==
LOC: EMEROO 17:20 → 3BNU 17:20
PROVIDERS: ADMIT Internal Medicine; ATTEND Internal Medicine

== ENCOUNTER 2017-08-10 11:44 | Inpatient (IN) ==
[2017-08-10] MEDS ORDERED: Ipratropium/Albuterol Neb 3 ML IH ONE (12:04)
[2017-08-10] MEDS ORDERED: methylPREDNISolone 125 MG/2 ML VIAL IVP ONE (12:18)
--- NOTE | 2017-08-10 12:19 | Emergency Department Note ---
Disposition Clinical Impression: Sepsis Qualifiers: Sepsis type: sepsis due to unspecified organism Qualified Code(s): A41.9 - Sepsis, unspecified organism Disposition: Admitted As Inpatient General Adult HPI - General Chief complaint: ED Shortness of Breath/Dyspnea Stated complaint: ATUL Time Seen by Provider: 08/10/17 11:52 Source: patient, family Limitations: no limitations - History of Present Illness Pain Scale: 0 - Related Data Home Medications Medication Instructions Recorded Confirmed Cholecalciferol (Vitamin D3) 5,000 unit PO Q48H 10/03/15 07/31/17 [Vitamin D3] Oxygen 3 l NS HS 10/03/15 07/31/17 Albuterol Sulfate [Proair Hfa] 1 puff IH AD PRN 01/14/17 07/31/17 Sennosides [Senna] 2 tab PO BID 02/05/17 07/31/17 Omeprazole [PriLOSEC] 40 mg PO DAILY PRN 07/31/17 07/31/17 Previous Rx's Medication Instructions Recorded Ondansetron HCl [Zofran] 4 mg PO Q8H PRN #60 tablet 03/25/17 Prochlorperazine Maleate 10 mg PO Q6HR PRN #90 tablet 03/25/17 [Compazine] Lidocaine/Prilocaine [Emla] 1 appl TP AD PRN #30 gm 04/24/17 Morphine Immed Rel [Morphine 15 mg PO Q4HR PRN #90 tablet 04/24/17 Sulfate] Gabapentin [Neurontin] 300 mg PO HS 30 Days #30 capsule 06/16/17 Morphine Sulfate [Arymo ER] 30 mg PO QPM 30 Days #30 tab.po.er 07/14/17 ALPRAZolam [Xanax 0.25 MG Tablet] 0.25 mg PO BID PRN 30 Days #60 07/22/17 tablet Dexamethasone [Decadron] 4 mg PO BID PRN #42 tab 07/22/17 Furosemide [Lasix] 20 mg PO DAILY #30 tablet 07/22/17 GuaiFENesin/Codeine [ROBITUSSIN 5 ml PO Q6HR PRN 30 Days #240 ml 07/22/17 w/CODEINE] Potassium Chloride 10 meq PO DAILY #30 tab.er.prt 07/22/17 Simvastatin [Zocor] 20 mg PO HS #30 tablet 07/22/17 Sucralfate [Carafate] 1 gm PO TID #90 tablet 07/22/17 Albuterol Neb [Proventil Neb] 2.5 mg IH Q2H PRN inhsol 08/02/17 Albuterol Neb [Proventil Neb] 2.5 mg IH [id number] inhsol 08/02/17 Azithromycin 250 mg PO DAILY #3 tablet 08/02/17 Budesonide/Formoterol 160/4.5 2 puff IH BIDR 30 Days #1 08/02/17 [Symbicort 160/4.5] hfa.aer.ad Tiotropium [Spiriva] 18 mcg IH 0700 30 Days #30 capsule 08/02/17 predniSONE [PredniSONE] 40 mg PO DAILY #4 tablet 08/02/17 Allergies Allergy/AdvReac Type Severity Reaction Status Date / Time ampicillin Allergy Hives Verified 07/31/17 19:59 diltiazem [From Cardizem] Allergy Hives Verified 07/31/17 19:59 aspirin AdvReac Nausea Verified 07/31/17 19:59 Oxycodone [From Percocet] AdvReac Nausea Verified 07/31/17 19:59 Past Medical History - Past Medical History Medical history: Reports: asthma, cancer, COPD, DVT, diabetes, glaucoma, hyperlipidemia, hypertension, pulmonary embolus, other Surgical history: Reports: appendectomy, orthopedic, other, DANA/BSO, other Psychiatric history: Reports: no psych history - Social History Smoking Status: Never smoker Smokeless Tobacco Status: No Alcohol use: Reports: none Drug use: Reports: none Physical Exam - General Limitations: no limitations General appearance: alert, in distress Course - Reevaluation(s) Reevaluation #1: Attestation note I examined this patient and my medical decision-making was reviewed with the emergency medicine resident. I agree with the documented findings, disposition and treatment plan as described except to the extent set forth below. Patient seen with PGY-[address] Andrews, Please see a copy of his note for details of the H&P, ED evaluation, management and disposition. I have independently evaluated the patient and confirmed appropriate portions of the history and physical exam. Briefly: 77-year-old female history of squamous cell lung carcinoma 100 pack year plus tobacco history is on chemotherapy has a port in place comes in with dyspnea tachypnea altered mental status fever and cough. Patient meets sepsis criteria alone onset severe sepsis at this time. Sepsis panel ordered. Patient will be getting antibiotics after cultures. Patient getting IV fluid boluses and x-rays and urinalysis with admission anticipated. Providing 45 minutes critical care service this patient. Admission disposition pending Time: 12:17 Vital Signs Temperature 100.7 F H 08/10/17 11:45 Pulse Rate 115 08/10/17 11:45 Respiratory Rate 20 08/10/17 11:45 Blood Pressure 125/79 08/10/17 11:45 O2 Sat by Pulse Oximetry 93 08/10/17 11:45 Temperature 100.9 F H 08/10/17 11:53 Pulse Rate 114 08/10/17 11:53 Respiratory Rate 24 08/10/17 11:53 Blood Pressure 133/82 08/10/17 11:53 O2 Sat by Pulse Oximetry 97 08/10/17 12:00 Oxygen Delivery Oxygen Delivery Nasal Cannula
[2017-08-10 12:42] LABS: Basophils % 0.1 %; Hematocrit 27.9 % (35.3-44.9); Hemoglobin 8.6 g/dL (11.5-15.4); Immature Granulocytes % 2.4 % (0-4); Lymphocytes # 0.2 K/mcL (0.6-4.6); Lymphocytes % 1.9 %; Mean Corpuscular HGB Conc 30.8 g/dL (31.6-35.5); Mean Corpuscular Volume 81.1 fL (83.0-100.0); Mean Platelet Volume 9.2 fL (9.4-12.4); Monocytes # 0.6 K/mcL (0.0-1.3); Monocytes % 6.1 %; Neutrophils # 8.1 K/mcL (1.6-8.9); Platelet Count 247 K/mcL (140-400); Red Blood Count 3.44 M/mcL (3.82-4.97); Red Cell Distribution Width 21.5 % (11.5-14.5); Segmented Neutrophils % 89.5 %
[2017-08-10 12:49] LABS: Bilirubin,Urine Negative (Negative); Blood,Urine Negative (Negative); Clarity,Urine Clear (Clear); Color,Urine Yellow (Yellow); Glucose,Urine (UA) Normal (Normal); Ketones,Urine Negative (Negative); Leukocyte Esterase,Urine Negative (Negative); Nitrite,Urine Negative (Negative); PH,Urine 6.5 pH Units (5.0-8.0); Protein,Urine Negative (Neg-Trace); Specific Gravity,Urine 1.015 (1.010-1.025); Urobilinogen,Urine Normal (Normal)
[2017-08-10 12:51] LABS: INR 1.4; Prothrombin Time 15.2 Seconds (9.4-12.1)
[2017-08-10 12:54] LABS: Activated Partial Thrombo Time 79.5 Seconds (26.0-36.0)
[2017-08-10 12:54] LABS: ABG Base Excess 11 mEq/L (-2 to 3); ABG HCO3 36 mEq/L (21-27); ABG Oxygen Saturation 96 % (95-98); ABG PCO2 47 mmHg (35-45); ABG PH 7.49 pH Units (7.32-7.45); ABG PO2 78 mmHg (85-104); ABG TCO2 38 mEq/L (20-26)
--- NOTE | 2017-08-10 12:57 | Emergency Department Note ---
Disposition Clinical Impression: HCAP (healthcare-associated pneumonia) Sepsis Qualifiers: Sepsis type: sepsis due to unspecified organism Qualified Code(s): A41.9 - Sepsis, unspecified organism Disposition: Admitted As Inpatient Condition: Fair Referrals: Frank Barboza MD [Primary Care Provider] - Forms: ED Satisfaction Letter Time of Disposition: 14:08 SOB HPI - General Chief Complaint: ED Shortness of Breath/Dyspnea Stated Complaint: ATUL Time Seen by Provider: 08/10/17 11:52 Source: patient, family Mode of arrival: wheelchair Limitations: no limitations Nursing Notes Reviewed: Yes Vital Signs Reviewed: Yes - History of Present Illness Patient is a 77-year-old female past medical history of asthma, squamous cell carcinoma of the lungs, COPD, DVT, type 2 diabetes, PE that presents for shortness of breath and chest discomfort. Patient says symptoms have been occurring for the past 3 days. She says they are worse with exertion. Patient complaining of post tussive chest pain. She denies any fever, nausea, vomiting. She admits to lightheadedness and a dry cough. Patient was accompanied by her daughter. She says that her O2 saturation at home this morning was a 67% was able to get it up to 90% on oxygen. She denies any sick contacts at home. Patient is currently not a smoker. She quit in 2014 and has 100 pack year history. Patient currently undergoing chemotherapy. Last treatment was . - Related Data Home Medications Medication Instructions Recorded Confirmed Cholecalciferol (Vitamin D3) 1,000 unit PO DAILY 10/03/15 08/10/17 [Vitamin D3] Oxygen 3 l NS HS 10/03/15 08/10/17 Albuterol Sulfate [Proair Hfa] 1 puff IH AD PRN 01/14/17 08/10/17 Omeprazole [PriLOSEC] 40 mg PO DAILY PRN 07/31/17 08/10/17 Morphine Immed Rel [Morphine 15 mg PO QAM 08/10/17 08/10/17 Sulfate] Previous Rx's Medication Instructions Recorded Ondansetron HCl [Zofran] 4 mg PO Q8H PRN #60 tablet 03/25/17 Prochlorperazine Maleate 10 mg PO Q6HR PRN #90 tablet 03/25/17 [Compazine] Lidocaine/Prilocaine [Emla] 1 appl TP AD PRN #30 gm 04/24/17 Gabapentin [Neurontin] 300 mg PO HS 30 Days #30 capsule 06/16/17 Morphine Sulfate [Arymo ER] 30 mg PO QPM 30 Days #30 tab.po.er 07/14/17 ALPRAZolam [Xanax 0.25 MG Tablet] 0.25 mg PO BID PRN 30 Days #60 07/22/17 tablet Dexamethasone [Decadron] 4 mg PO BID PRN #42 tab 07/22/17 Furosemide [Lasix] 20 mg PO DAILY #30 tablet 07/22/17 Potassium Chloride 10 meq PO DAILY #30 tab.er.prt 07/22/17 Simvastatin [Zocor] 20 mg PO HS #30 tablet 07/22/17 Sucralfate [Carafate] 1 gm PO TID #90 tablet 07/22/17 Albuterol Neb [Proventil Neb] 2.5 mg IH [id number] inhsol 08/02/17 Budesonide/Formoterol 160/4.5 2 puff IH BIDR 30 Days #1 08/02/17 [Symbicort 160/4.5] hfa.aer.ad Tiotropium [Spiriva] 18 mcg IH 0700 30 Days #30 capsule 08/02/17 Allergies Allergy/AdvReac Type Severity Reaction Status Date / Time ampicillin Allergy Hives Verified 08/10/17 12:46 diltiazem [From Cardizem] Allergy Hives Verified 08/10/17 12:46 aspirin AdvReac Nausea Verified 08/10/17 12:46 Oxycodone [From Percocet] AdvReac Nausea Verified 08/10/17 12:46 Constitutional: Denies: fever, chills Cardiovascular: Reports: chest pain, dyspnea on exertion. Denies: edema, syncope Respiratory: Reports: cough, dyspnea, wheezes. Denies: hemoptysis, sputum production Gastrointestinal: Denies: abdominal pain, nausea, vomiting, diarrhea, constipation, hematemesis, melena, hematochezia Genitourinary: Denies: dysuria, frequency, hematuria, discharge Past Medical History - Past Medical History Medical history: Reports: asthma, cancer, COPD, DVT, diabetes, glaucoma, hyperlipidemia, hypertension, pulmonary embolus, other Surgical history: Reports: appendectomy, orthopedic, other, DANA/BSO, other Psychiatric history: Reports: no psych history - Social History Smoking Status: Never smoker Smokeless Tobacco Status: No Alcohol use: Reports: none Drug use: Reports: none Physical Exam - General Limitations: no limitations General appearance: alert, in distress - Chest Chest inspection: Present: normal inspection, symmetric chest wall rise. Absent : tenderness - Respiratory Respiratory exam: Present: respiratory distress, wheezes (Moderate wheezes bilaterally) - Cardiovascular Cardiovascular exam: Present: tachycardia, normal heart sounds, +S1, +S2. Absent: +S3, +S4 - Abdominal Exam Abdominal exam: Present: soft, Non-Tender, normal bowel sounds. Absent: tenderness, distention, guarding, rebound, rigidity - Extremities Exam Extremities exam: Present: normal inspection, full ROM, tenderness (Left lower extremity. Negative Homans sign.), normal capillary refill, other (Pulses intact and symmetrical in upper and lower extremities..). Absent: pedal edema, joint swelling Course Course Narrative: Patient meets SIRS criteria with an elevated heart rate, elevated respiratory rate, temperature of 100.7. We will start with sepsis workup including blood cultures and lactic acid. Given patient's recent hospitalization and wheezing on exam along with a fever, I will empirically treat patient for age With meropenem, vancomycin, and Levaquin. Patient not started on Zosyn due to penicillin allergy. Patient given duonebs along with solu-medrol due to respiratory distress. Patient's EKG revealed no acute ischemic changes or ST elevations. Will assess troponin level to rule out ACS. Patient is not fluid overloaded unlikely to be CHF exacerbation. Update 1358: EKG shows sinus tachycardia with L-axis deviation. No signs of acute ischemic changes. Troponin was negative. CXR was persistant R-basilar and perihilar consolidation. Patient meets Sepsis criteria with source of infection attributable to PNA. Patient given 1 L fluid bolus of NS. Spoke to hospitalist Dr. Rhodes who agreed to admit the patient. Chest X-Ray 08/10/17 12:00 IMPRESSION: Stable chest with persistent right basilar and perihilar consolidation with right pleural effusion D/ / Brayan Chua MD / Brayan Chua MD Interpreting Provider: Brayan Chua MD Vital Signs Temperature 100.7 F H 08/10/17 11:45 Pulse Rate 115 08/10/17 11:45 Respiratory Rate 20 08/10/17 11:45 Blood Pressure 125/79 08/10/17 11:45 O2 Sat by Pulse Oximetry 93 08/10/17 11:45 Temperature 100.9 F H 08/10/17 11:53 Pulse Rate 128 08/10/17 13:15 Respiratory Rate 22 08/10/17 13:15 Blood Pressure 124/78 08/10/17 13:15 O2 Sat by Pulse Oximetry 96 08/10/17 13:15 Oxygen Delivery Oxygen Delivery Nasal Cannula Shortness of Breath/Dyspnea - Lab Data Result diagrams: 08/10/17 11:58 08/10/17 11:58 Lab Results 08/10/17 08/10/17 08/10/17 Range/Units 11:58 11:58 11:58 WBC 9.1 D (4.3-11.1) K/mcL RBC 3.44 L (3.82-4.97) M/mcL Hgb 8.6 L (11.5-15.4) g/dL Hct 27.9 L (35.3-44.9) % MCV 81.1 L (83.0-100.0) fL MCH 25.0 L (28.0-33.3) pg MCHC 30.8 L (31.6-35.5) g/dL RDW 21.5 H (11.5-14.5) % Plt Count 247 (140-400) K/mcL MPV 9.2 L (9.4-12.4) fL Immature Gran % 2.4 (0-4) % Seg Neutrophils % 89.5 % Lymphocytes % 1.9 % Monocytes % 6.1 % Eosinophils % 0.0 % Basophils % 0.1 % Neutrophils # 8.1 (1.6-8.9) K/mcL Lymphocytes # 0.2 L (0.6-4.6) K/mcL Monocytes # 0.6 (0.0-1.3) K/mcL Eosinophils # 0.0 (0.0-0.6) K/mcL Basophils # 0.0 (0.0-0.2) K/mcL Platelet Estimate Normal (Normal) Anisocytosis 1+ A (Not Present) PT 15.2 H (9.4-12.1) Seconds INR 1.4 APTT 79.5 H (26.0-36.0) Seconds Sample Site ABG pH (7.32-7.45) pH Units ABG pCO2 (35-45) mmHg ABG pO2 (85-104) mmHg ABG HCO3 (21-27) mEq/L ABG Total CO2 (20-26) mEq/L ABG O2 Saturation (95-98) % ABG Base Excess (-2 to 3) mEq/L Ronald Test O2 Delivery Device Inspired O2 (1-15=lpm [id number]=%) Sodium 133 L (136-145) mEq/L Potassium 4.1 (3.5-5.1) mEq/L Chloride 93 L (98-107) mEq/L Carbon Dioxide 34 H (23-29) mEq/L BUN 15 (8-23) mg/dL Creatinine 0.50 L (0.60-1.20) mg/dL Est GFR ( Amer) > 60 (> 60) Est GFR (Non-Af Amer) > 60 (> 60) BUN/Creatinine Ratio 30 H (6-26) Glucose 101 (70-105) mg/dL Calculated Osmolality 277 L (280-300) Lactic Acid (0.5-2.2) mmol/L Calcium 9.0 (8.6-10.3) mg/dL Phosphorus 3.1 (2.7-4.5) mg/dL Magnesium 1.6 (1.6-2.6) mg/dL Total Bilirubin 0.6 (0.3-1.0) mg/dL Direct Bilirubin 0.3 H (0.0-0.2) mg/dL Indirect Bilirubin 0.3 (0.0-1.2) mg/dL AST 23 (13-39) Units/L ALT 37 (7-52) Units/L Alkaline Phosphatase 183 H (34-104) Units/L Troponin I < 0.03 (< 0.04) ng/mL Serum Total Protein 5.8 L (6.4-8.9) g/dL Albumin 2.8 L (3.5-5.7) g/dL Globulin 3.0 (2.4-3.5) g/dL Albumin/Globulin Ratio 0.9 L (1.1-2.2) Urine Color (Yellow) Urine Clarity (Clear) Urine pH (5.0-8.0) pH Units Ur Specific Roberts (1.010-1.025) Urine Protein (Neg-Trace) mg/dL Urine Glucose (UA) (Normal) mg/dL Urine Ketones (Negative) mg/dL Urine Blood (Negative) Urine Nitrite (Negative) Urine Bilirubin (Negative) Urine Urobilinogen (Normal) mg/dL Ur Leukocyte Esterase (Negative) Ur Culture Indicated? (NO) 08/10/17 08/10/17 08/10/17 Range/Units 12:22 12:30 12:45 WBC (4.3-11.1) K/mcL RBC (3.82-4.97) M/mcL Hgb (11.5-15.4) g/dL Hct (35.3-44.9) % MCV (83.0-100.0) fL MCH (28.0-33.3) pg MCHC (31.6-35.5) g/dL RDW (11.5-14.5) % Plt Count (140-400) K/mcL MPV (9.4-12.4) fL Immature Gran % (0-4) % Seg Neutrophils % % Lymphocytes % % Monocytes % % Eosinophils % % Basophils % % Neutrophils # (1.6-8.9) K/mcL Lymphocytes # (0.6-4.6) K/mcL Monocytes # (0.0-1.3) K/mcL Eosinophils # (0.0-0.6) K/mcL Basophils # (0.0-0.2) K/mcL Platelet Estimate (Normal) Anisocytosis (Not Present) PT (9.4-12.1) Seconds INR APTT (26.0-36.0) Seconds Sample Site L Radial ABG pH 7.49 H (7.32-7.45) pH Units ABG pCO2 47 H (35-45) mmHg ABG pO2 78 L (85-104) mmHg ABG HCO3 36 H (21-27) mEq/L ABG Total CO2 38 H (20-26) mEq/L ABG O2 Saturation 96 (95-98) % ABG Base Excess 11 H (-2 to 3) mEq/L Ronald Test Positive O2 Delivery Device Cannula Inspired O2 32.0 (1-15=lpm [id number]=%) Sodium (136-145) mEq/L Potassium (3.5-5.1) mEq/L Chloride (98-107) mEq/L Carbon Dioxide (23-29) mEq/L BUN (8-23) mg/dL Creatinine (0.60-1.20) mg/dL Est GFR ( Amer) (> 60) Est GFR (Non-Af Amer) (> 60) BUN/Creatinine Ratio (6-26) Glucose (70-105) mg/dL Calculated Osmolality (280-300) Lactic Acid 0.6 (0.5-2.2) mmol/L Calcium (8.6-10.3) mg/dL Phosphorus (2.7-4.5) mg/dL Magnesium (1.6-2.6) mg/dL Total Bilirubin (0.3-1.0) mg/dL Direct Bilirubin (0.0-0.2) mg/dL Indirect Bilirubin (0.0-1.2) mg/dL AST (13-39) Units/L ALT (7-52) Units/L Alkaline Phosphatase (34-104) Units/L Troponin I (< 0.04) ng/mL Serum Total Protein (6.4-8.9) g/dL Albumin (3.5-5.7) g/dL Globulin (2.4-3.5) g/dL Albumin/Globulin Ratio (1.1-2.2) Urine Color Yellow (Yellow) Urine Clarity Clear (Clear) Urine pH 6.5 (5.0-8.0) pH Units Ur Specific Roberts 1.015 (1.010-1.025) Urine Protein Negative (Neg-Trace) mg/dL Urine Glucose (UA) Normal (Normal) mg/dL Urine Ketones Negative (Negative) mg/dL Urine Blood Negative (Negative) Urine Nitrite Negative (Negative) Urine Bilirubin Negative (Negative) Urine Urobilinogen Normal (Normal) mg/dL Ur Leukocyte Esterase Negative (Negative) Ur Culture Indicated? NO (NO) - EKG Data EKG shows normal: Reports: sinus rhythm, intervals, QRS complexes, ST-T waves Rate: Reports: tachycardia [place]/QRS: Reports: left axis deviation
[2017-08-10 12:58] LABS: Troponin I < 0.03 ng/mL (< 0.04)
[2017-08-10] MEDS ORDERED: Meropenem 1,000 MG in Water for inj. (sterile) 20 ML 10 ML IVP ONE (13:00)
[2017-08-10] MEDS ORDERED: Levofloxacin 750 MG/150 ML 750 MG/150 ML BAG IVPB ONE (13:00)
[2017-08-10 13:07] LABS: Alanine Aminotransferase 37 Units/L (7-52); Albumin 2.8 g/dL (3.5-5.7); Albumin/Globulin Ratio 0.9 (1.1-2.2); Alkaline Phosphatase 183 Units/L (34-104); Aspartate Amino Transferase 23 Units/L (13-39); BUN/Creatinine Ratio 30 (6-26); Bilirubin,Direct 0.3 mg/dL (0.0-0.2); Bilirubin,Indirect 0.3 mg/dL (0.0-1.2); Bilirubin,Total 0.6 mg/dL (0.3-1.0); Blood Urea Nitrogen 15 mg/dL (8-23); Carbon Dioxide 34 mEq/L (23-29); Chloride 93 mEq/L (98-107); Glucose 101 mg/dL (70-105); Magnesium 1.6 mg/dL (1.6-2.6); Osmolality,Calculated 277 (280-300); Phosphorous 3.1 mg/dL (2.7-4.5); Potassium 4.1 mEq/L (3.5-5.1); Sodium 133 mEq/L (136-145); Total Protein 5.8 g/dL (6.4-8.9); eGFR For African Americans > 60 (> 60); eGFR For Non-African Americans > 60 (> 60)
[2017-08-10 13:25] LABS: Anisocytosis 1+ (Not Present); Platelet Estimate Normal (Normal)
[2017-08-10] MEDS ORDERED: 0.9 % Sodium Chloride 1,000 ML IVC ONE (13:53)
--- NOTE | 2017-08-10 15:21 | Internal Med History&Physical ---
Date of Encounter: 08/10/17 Time of Encounter: 15:17 Internal Medicine - H&P: HPI Chief complaint: SOB Admitted From: Home Plans for Post Hospital Care: Home History of present illness: Ms. 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 Patient was just a discharge on August 02 after COPD exacerbation, she just to finish her prednisone and azithromycin 5 days. Patient developed severe shortness of breath 3 days ago, associated with productive cough. She also has chills and low-grade fever. mild chest pain located in the middle of chest, sharp when she coughs or taking deep breath. She is admitted for HCAP Past Med Surg Social Fam HX - Past Medical History Medical history: asthma, cancer, COPD, DVT, diabetes, glaucoma, hyperlipidemia, hypertension, pulmonary embolus, other Psychiatric history: no psych history - Past Surgical History Surgical History: appendectomy, orthopedic, other, DANA/BSO, other - Social History Smoking Status: Never smoker Smokeless Tobacco Status: No Alcohol use: none Drug use: none - Family History Father Living Status: Hx Family Cardiac Disorders: Yes Hx Family Respiratory Disorders: Yes Hx Family Cancer: Yes (Breast, lymph nodes, cervical) Hx Family GI Disorders: No Hx Family Endocrine Disorder: Yes (Diabetes) Hx Family Neuromuscular Disorders: No Hx Family Neurologic Disorders: No (nerve and muscle problems) Hx Family HEENT Disorders: No Hx Family Autoimmune Disorders: No Internal Medicine - H&P: Meds Cholecalciferol (Vitamin D3) [Vitamin D3] 1,000 unit PO DAILY 10/03/15 [History] Oxygen 3 l NS HS 10/03/15 [History] Albuterol Sulfate [Proair Hfa] 1 puff IH AD PRN 01/14/17 [History] Ondansetron HCl [Zofran] 4 mg PO Q8H PRN #60 tablet 03/25/17 [Rx] Prochlorperazine Maleate [Compazine] 10 mg PO Q6HR PRN #90 tablet 03/25/17 [Rx] Lidocaine/Prilocaine [Emla] 1 appl TP AD PRN #30 gm 04/24/17 [Rx] Gabapentin [Neurontin] 300 mg PO HS 30 Days #30 capsule 06/16/17 [Rx] Morphine Sulfate [Arymo ER] 30 mg PO QPM 30 Days #30 tab.po.er 07/14/17 [Rx] ALPRAZolam [Xanax 0.25 MG Tablet] 0.25 mg PO BID PRN 30 Days #60 tablet [Rx] Dexamethasone [Decadron] 4 mg PO BID PRN #42 tab 07/22/17 [Rx] Furosemide [Lasix] 20 mg PO DAILY #30 tablet 07/22/17 [Rx] Potassium Chloride 10 meq PO DAILY #30 tab.er.prt 07/22/17 [Rx] Simvastatin [Zocor] 20 mg PO HS #30 tablet 07/22/17 [Rx] Sucralfate [Carafate] 1 gm PO TID #90 tablet 07/22/17 [Rx] Omeprazole [PriLOSEC] 40 mg PO DAILY PRN 07/31/17 [History] Albuterol Neb [Proventil Neb] 2.5 mg IH [id number] inhsol 08/02/17 [Rx] Budesonide/Formoterol 160/4.5 [Symbicort 160/4.5] 2 puff IH BIDR 30 Days #1 hfa.aer.ad 08/02/17 [Rx] Tiotropium [Spiriva] 18 mcg IH 0700 30 Days #30 capsule 08/02/17 [Rx] Morphine Immed Rel [Morphine Sulfate] 15 mg PO QAM 08/10/17 [History] 3 Allergy/AdvReac Type Severity Reaction Status Date / Time ampicillin Allergy Hives Verified 08/10/17 12:46 diltiazem [From Cardizem] Allergy Hives Verified 08/10/17 12:46 aspirin AdvReac Nausea Verified 08/10/17 12:46 Oxycodone [From Percocet] AdvReac Nausea Verified 08/10/17 12:46 All Systems PM: A 10-system review of systems was performed and is negative for pertinent findings except as documented above in the HPI. - Constitutional Vitals: Temp Pulse Resp BP Pulse Ox 100.4 F H 115 18 115/79 95 08/10/17 14:22 08/10/17 15:08/10/17 15:01 08/10/17 15:01 08/10/17 15:01 General appearance: Present: mild distress, A&O X 3, pleasant Exam: CONSTITUTIONAL: Patient appears as an age appropriate female well developed, in no acute distress. EYES Clear sclerae, bilateral pupils are equal, reactive to light and accommodation. Extraocular movements are intact RESPIRATORY: No accessory muscle use, bilateral crackles/rales. CARDIOVASCULAR: Regular heart rate, normal S1 and S2, no murmurs GASTROINTESTINAL: bowel sounds present, soft, no tenderness. No hepatosplenomegaly. No bilateral CVA tenderness MUSCULOSKELETAL: Joints in normal range of motion, no clubbing, no edema, no cyanosis. Bilateral peripheral pulses 2+ LYMPHATIC no lymphadenopathy in neck, groin and axilla bilaterally, no thyromegaly. NEUROLOGIC: CN II to XII are grossly intact, no focal neurological deficit. Deep tendon reflexes 2+ bilaterally. Normal light touch sensation to upper and lower extremity PSYCHIATRIC: Oriented x3, with good insight, mood is euthymic. No hallucinations or delusions. SKIN: Skin warm and dry, no rashes, no open wound. Internal Med - H&P Results - Labs CBC & Chem 7: 08/10/17 11:58 08/10/17 11:58 - Assessment and plan (1) Sepsis Current Visit: Yes Status: Acute Assessment and plan: Sepsis was temperature 100.4, heart rate 130, from hospital associated pneumonia Qualifiers: Sepsis type: sepsis due to unspecified organism Qualified Code(s): A41.9 - Sepsis, unspecified organism (2) HCAP (healthcare-associated pneumonia) Current Visit: Yes Status: Acute Assessment and plan: Patient has productive cough bilateral crackles x-ray shows right-sided consolidation, she medial quite tearful hospitalization pneumonia we will continue meropenem and levofloxacin vancomycin (3) Squamous cell carcinoma lung Current Visit: Yes Status: Chronic Assessment and plan: Follow-up with oncologist Qualifiers: Laterality: right Qualified Code(s): C34.91 - Malignant neoplasm of unspecified part of right bronchus or lung (4) COPD (chronic obstructive pulmonary disease) Current Visit: Yes Status: Chronic Assessment and plan: Patient has chronic hypoxic respiratory respiratory failure from COPD and lung cancers on 3 L nasal cannula at home. We will give the IV steroids scheduled her nebulizer Qualifiers: COPD type: unspecified COPD Qualified Code(s): J44.9 - Chronic obstructive pulmonary disease, unspecified (5) DNR (do not resuscitate) discussion Current Visit: Yes Status: Acute Assessment and plan: I discussed the code status with the patient and she wants to be DNR CCA no intubation - Time Spent With Patient Total time spent is greater than 50% in coordination of care (as documented) at patient's floor/unit and/or counseling patient: Greater than 35 minutes
[2017-08-10] MEDS ORDERED: Ondansetron ODT 4 MG TAB.RAPDIS PO PRN (15:31)
[2017-08-10] MEDS ORDERED: ALPRAZolam 0.25 MG TABLET PO PRN (15:31)
[2017-08-10] MEDS ORDERED: Naloxone 0.4 MG/ML INJ IVP PRN (15:34)
[2017-08-10] MEDS ORDERED: Albuterol 2.5 MG/3 ML NEBULIZER ONE (15:49)
[2017-08-10] MEDS ORDERED: Vancomycin (wt based) 1,000 MG VIAL IVPB SCH (16:00)
[2017-08-10] MEDS: Albuterol 2.5 MG/3 ML NEBULIZER IH SCH ×3 (16:15→23:19)
[2017-08-10] MEDS: Sucralfate 1 GM TABLET PO SCH (19:27)
[2017-08-10] MEDS: Budesonide/Formoterol 160/4.5 MDI IH SCH (19:42)
[2017-08-10] MEDS: *HR* Morphine Sulfate SR (12 HR) 30 MG TABLET.ER PO SCH (20:44)
[2017-08-10] MEDS: Gabapentin 300 MG CAPSULE PO SCH (20:45)
[2017-08-10] MEDS: MethylPREDNISolone 40 MG/ML VIAL IVP SCH (20:45)
[2017-08-10] MEDS: Meropenem 1,000 MG in Water for inj. (sterile) 20 ML 10 ML IVPB SCH (20:46)
[2017-08-10] MEDS ORDERED: Meropenem 1,000 MG in Water for inj. (sterile) 20 ML 10 ML IVPB SCH (21:00)
[2017-08-10] MEDS ORDERED: NON-FORMULARY MEDICATION 1 EACH EACH (Oxygen [Oxygen] 3 L) NS SCH (21:00)
[2017-08-10] MEDS: Ibuprofen 600 MG TABLET PO PRN (21:37)
[2017-08-11] MEDS: Albuterol 2.5 MG/3 ML NEBULIZER IH SCH ×5 (03:45→20:02)
[2017-08-11] MEDS: MethylPREDNISolone 40 MG/ML VIAL IVP SCH ×3 (05:33→20:42)
[2017-08-11] MEDS: Meropenem 1,000 MG in Water for inj. (sterile) 20 ML 10 ML IVPB SCH ×2 (05:34→12:41)
[2017-08-11 06:27] LABS: Hematocrit 23.7 % (35.3-44.9); Hemoglobin 7.5 g/dL (11.5-15.4); Mean Corpuscular HGB Conc 31.6 g/dL (31.6-35.5); Mean Corpuscular Hemoglobin 25.6 pg (28.0-33.3); Mean Corpuscular Volume 80.9 fL (83.0-100.0); Mean Platelet Volume 9.3 fL (9.4-12.4); Platelet Count 188 K/mcL (140-400); Red Blood Count 2.93 M/mcL (3.82-4.97); Red Cell Distribution Width 21.4 % (11.5-14.5)
[2017-08-11 06:53] LABS: BUN/Creatinine Ratio 36 (6-26); Blood Urea Nitrogen 21 mg/dL (8-23); Calcium 8.6 mg/dL (8.6-10.3); Carbon Dioxide 30 mEq/L (23-29); Chloride 98 mEq/L (98-107); Glucose 189 mg/dL (70-105); Osmolality,Calculated 288 (280-300); Potassium 3.9 mEq/L (3.5-5.1); Sodium 135 mEq/L (136-145); Troponin I < 0.03 ng/mL (< 0.04); eGFR For African Americans > 60 (> 60); eGFR For Non-African Americans > 60 (> 60)
[2017-08-11] MEDS: Budesonide/Formoterol 160/4.5 MDI IH SCH ×2 (07:31→20:03)
[2017-08-11] MEDS: Cholecalciferol (D-3) 1,000 UNIT TABLET PO SCH (08:52)
[2017-08-11] MEDS: Sucralfate 1 GM TABLET PO SCH ×3 (08:52→18:29)
[2017-08-11] MEDS: *HR* Morphine Sulfate SR (12 HR) 15 MG TABLET.ER PO SCH (08:52)
[2017-08-11] MEDS: Levofloxacin 750 MG/150 ML 750 MG/150 ML BAG IVPB SCH (08:53)
[2017-08-11] MEDS: Tiotropium 18 MCG inhalation IH SCH (10:22)
--- NOTE | 2017-08-11 16:10 | Electrocardiograph Report ---
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
--- NOTE | 2017-08-11 18:28 | Internal Med Progress Note ---
Date of Encounter: 08/11/17 Time of Encounter: 18:25 - Assessment and plan (1) Sepsis Current Visit: Yes Status: Resolved Assessment and plan: Appears to have resolved Qualifiers: Sepsis type: sepsis due to unspecified organism Qualified Code(s): A41.9 - Sepsis, unspecified organism (2) HCAP (healthcare-associated pneumonia) Current Visit: Yes Status: Acute Assessment and plan: Productive cough, bilateral crackles. Chest x-ray shows right-sided consolidation. Chronic respiratory failure with hypoxia. Patient is immunocompromised with squamous cell carcinoma. Continue to receive chemotherapy treatments, last chemotherapy this past . Treating for healthcare associated pneumonia. Broad-spectrum antibiotics including vancomycin, Levaquin and cefepime Bronchodilators IV steroids Respiratory support when necessary per nasal cannula currently on 3 L, reporting increased difficulty breathing with activity but reports that she feels like she is improving overall Continuous telemetry CBC D, BMP in the morning (3) COPD (chronic obstructive pulmonary disease) Current Visit: Yes Status: Chronic Assessment and plan: Not in acute exacerbation, no wheezing noted to auscultation. Has chronic respiratory failure secondary to COPD and lung cancer however is being exacerbated by recent diagnosis of HCAP. See further assessment and planning above Qualifiers: COPD type: unspecified COPD Qualified Code(s): J44.9 - Chronic obstructive pulmonary disease, unspecified (4) Squamous cell carcinoma lung Current Visit: Yes Status: Chronic Assessment and plan: She will follow with oncology Report last chemotherapy was this past Qualifiers: Laterality: right Qualified Code(s): C34.91 - Malignant neoplasm of unspecified part of right bronchus or lung (5) Anemia Current Visit: Yes Status: Acute Assessment and plan: Continues to have anemia, no obvious cause of bleeding, no active bleeding noted.. Etiology unclear but likely caused by chemotherapy. She remains hemodynamically stable. Hemoglobin has dropped 1 g in 24 hours. Type and screen Transfuse 1 unit packed red cells Recheck CBC in the morning Qualifiers: Anemia type: unspecified type Qualified Code(s): D64.9 - Anemia, unspecified (6) DNR (do not resuscitate) discussion Current Visit: Yes Status: Acute (7) DVT prophylaxis Current Visit: Yes Status: Acute Assessment and plan: EPCD's - Time Spent With Patient Total time spent is greater than 50% in coordination of care (as documented) at patient's floor/unit and/or counseling patient: Greater than 35 minutes - Subjective Interval history: Ms. 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 Also, she has seen a primary care provider for shortness of breath and dizziness of prednisone and azithromycin course however, shortness of breath continued to get worse upon admission. They seem examine the patient at bedside and she continues to report shortness of breath however reports it is improving since admission yesterday. She has continued to require 3 L nasal cannula for O2 support which is what she wears at home. She has shortness of breath with ambulation reports that this is also improving since admission. - Constitutional Vitals: Temp Pulse Resp BP Pulse Ox 97.9 F 93 16 125/78 100 08/11/17 16:16 08/11/17 16:16 08/11/17 16:20 08/11/17 16:16 08/11/17 16:20 General appearance: Present: mild distress, A&O X 3, pleasant - Head Head exam: Present: atraumatic, normocephalic - Eye Eye exam: Present: PERRL, conjuntiva pink, sclera anicteric Pupils: Present: PERRL - Respiratory Respiratory exam: Present: decreased breath sounds, rales (Bilateral posterior bases) Additional comments: Due to rales and posterior bases otherwise diminished throughout no rhonchi per auscultation - Cardiovascular Cardiovascular exam: Present: RRR, +S1, +S2. Absent: diastolic murmur, gallop, rubs, systolic murmur - GI/Abdominal GI/Abdominal exam: Present: normal bowel sounds, soft, no peritoneal signs. Absent: distended, tenderness - Extremities Exam Extremities exam: Present: warm, radial pulses palpable and symmetrical. Absent : calf tenderness, cyanotic, pedal edema - Neurological Exam Neurological exam: Present: CN II-XII intact, oriented X3, no focal deficits. Absent: pronater drift, facial droop, speech deficit - Skin Skin exam: Present: dry, intact Internal Medicine: Result - Labs CBC & Chem 7: 08/11/17 05:49 08/11/17 05:49 Labs: Short CBC 08/11/17 Range/Units 05:49 WBC 10.7 (4.3-11.1) K/mcL Hgb 7.5 L (11.5-15.4) g/dL Hct 23.7 L (35.3-44.9) % Plt Count 188 (140-400) K/mcL BMP 08/11/17 05:49 Sodium 135 L Potassium 3.9 Chloride 98 Carbon Dioxide 30 H BUN 21 Creatinine 0.59 L Glucose 189 H Calcium 8.6 Cardiac Enzymes 08/11/17 Range/Units 05:49 Troponin I < 0.03 (< 0.04) ng/mL - ABG Interpretation ABG results: ABG ABG pH 7.49 pH Units (7.32-7.45) H 08/10/17 12:45 ABG pCO2 47 mmHg (35-45) H 08/10/17 12:45 ABG pO2 78 mmHg (85-104) L 08/10/17 12:45 ABG O2 Saturation 96 % (95-98) 08/10/17 12:45 PT/INR, D-dimer PT 15.2 Seconds (9.4-12.1) H 08/10/17 11:58 Consult Discharge Plan - Plan Referrals: Frank Barboza MD [Primary Care Provider] - 08/18/17 9:30 am
[2017-08-11] MEDS: Cefepime HCl 2,000 MG in Water for inj. (sterile) 20 ML 20 ML IVP SCH (18:29)
[2017-08-11 19:48] LABS: Hematocrit 25.9 % (35.3-44.9)
[2017-08-11] MEDS ORDERED: 0.9 % Sodium Chloride 250 ML ONE (20:33)
[2017-08-11] MEDS: *HR* Morphine Sulfate SR (12 HR) 30 MG TABLET.ER PO SCH (20:41)
[2017-08-11] MEDS: Gabapentin 300 MG CAPSULE PO SCH (20:41)
[2017-08-12] MEDS: Albuterol 2.5 MG/3 ML NEBULIZER IH SCH ×6 (00:10→20:07)
[2017-08-12 00:37] LABS: Basophils % 0.1 %; Hematocrit 28.8 % (35.3-44.9); Hemoglobin 9.2 g/dL (11.5-15.4); Immature Granulocytes % 0.7 % (0-4); Lymphocytes # 0.1 K/mcL (0.6-4.6); Lymphocytes % 0.8 %; Mean Corpuscular HGB Conc 31.9 g/dL (31.6-35.5); Mean Corpuscular Hemoglobin 25.9 pg (28.0-33.3); Mean Corpuscular Volume 81.1 fL (83.0-100.0); Mean Platelet Volume 9.4 fL (9.4-12.4); Monocytes # 0.6 K/mcL (0.0-1.3); Monocytes % 4.2 %; Neutrophils # 13.6 K/mcL (1.6-8.9); Platelet Count 167 K/mcL (140-400); Red Blood Count 3.55 M/mcL (3.82-4.97); Segmented Neutrophils % 94.2 %
[2017-08-12 00:48] LABS: BUN/Creatinine Ratio 47 (6-26); Blood Urea Nitrogen 29 mg/dL (8-23); Calcium 8.9 mg/dL (8.6-10.3); Carbon Dioxide 28 mEq/L (23-29); Chloride 101 mEq/L (98-107); Glucose 159 mg/dL (70-105); Osmolality,Calculated 293 (280-300); Potassium 3.9 mEq/L (3.5-5.1); Sodium 137 mEq/L (136-145); eGFR For African Americans > 60 (> 60); eGFR For Non-African Americans > 60 (> 60)
[2017-08-12 01:04] LABS: Anisocytosis 1+ (Not Present); Hypersegmented Neutrophils Present (Not Present); Microcytosis Present (Not Present); Platelet Estimate Normal (Normal); Toxic Granulation Present (Not Present)
[2017-08-12] MEDS: Cefepime HCl 2,000 MG in Water for inj. (sterile) 20 ML 20 ML IVP SCH ×2 (05:41→17:13)
[2017-08-12] MEDS: MethylPREDNISolone 40 MG/ML VIAL IVP SCH ×3 (05:41→22:58)
[2017-08-12] MEDS: Sucralfate 1 GM TABLET PO SCH ×3 (05:50→17:13)
[2017-08-12] MEDS: Tiotropium 18 MCG inhalation IH SCH (07:44)
[2017-08-12] MEDS: Budesonide/Formoterol 160/4.5 MDI IH SCH ×2 (07:44→20:07)
[2017-08-12] MEDS: Cholecalciferol (D-3) 1,000 UNIT TABLET PO SCH (08:48)
[2017-08-12] MEDS: Levofloxacin 750 MG/150 ML 750 MG/150 ML BAG IVPB SCH (08:48)
[2017-08-12] MEDS: *HR* Morphine Sulfate SR (12 HR) 15 MG TABLET.ER PO SCH (08:48)
[2017-08-12] MEDS: Ibuprofen 600 MG TABLET PO PRN (09:00)
--- NOTE | 2017-08-12 10:35 | Internal Med Progress Note ---
Date of Encounter: 08/12/17 Time of Encounter: 09:00 - Assessment and plan (1) HCAP (healthcare-associated pneumonia) Current Visit: Yes Status: Acute Assessment and plan: Continuing to endorse cough, reporting that is now nonproductive., bilateral crackles bilateral bases. As a history of chronic respiratory failure with hypoxia. Patient is immunocompromised with squamous cell carcinoma of the lung. Following with [facility], continuing to receive chemotherapy treatments, last chemotherapy this past . Continue to treat for healthcare associated pneumonia. She did have an increase in WBC today from 10.7-14.4. However overall clinically she appears to have improved. Acidosis likely caused by IV steroids. Continue Broad-spectrum antibiotics including vancomycin, Levaquin and cefepime Bronchodilators IV steroids Respiratory support when necessary per nasal cannula currently on 2 L Continuous telemetry, SPO2 monitoring CBC D, BMP in the morning (2) Sepsis Current Visit: Yes Status: Resolved Assessment and plan: No longer appears to be septic. Overall, click a picture is improved. Patient requiring less O2 support, and reporting that shortness of breath has improved since admission. She was noted to have an increase in WBC from 10.7-14.4 today however, this is likely due to IV steroids. Continue to monitor Qualifiers: Sepsis type: sepsis due to unspecified organism Qualified Code(s): A41.9 - Sepsis, unspecified organism (3) COPD (chronic obstructive pulmonary disease) Current Visit: Yes Status: Chronic Assessment and plan: Not in acute exacerbation, no wheezing noted upon auscultation. Has chronic respiratory failure secondary to COPD and lung cancer however is being exacerbated by recent diagnosis of HCAP. See further assessment and planning above Qualifiers: COPD type: unspecified COPD Qualified Code(s): J44.9 - Chronic obstructive pulmonary disease, unspecified (4) Squamous cell carcinoma lung Current Visit: Yes Status: Chronic Assessment and plan: Continuing to follow with oncology Last chemotherapy was this past Qualifiers: Laterality: right Qualified Code(s): C34.91 - Malignant neoplasm of unspecified part of right bronchus or lung (5) Anemia Current Visit: Yes Status: Acute Assessment and plan: Continues to have anemia of unclear etiology, likely caused by chemotherapy., no obvious cause of bleeding, no active bleeding noted. Received 1 unit of packed red cells yesterday. Hemoglobin improved this morning from 7.5-9.2. She remains hemodynamically stable. CBC in the morning Qualifiers: Anemia type: unspecified type Qualified Code(s): D64.9 - Anemia, unspecified (6) DNR (do not resuscitate) discussion Current Visit: Yes Status: Acute (7) DVT prophylaxis Current Visit: Yes Status: Acute Assessment and plan: EPCD's - Time Spent With Patient Total time spent is greater than 50% in coordination of care (as documented) at patient's floor/unit and/or counseling patient: - Subjective Interval history: Ms. 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 She failed treatment from her PCP with azithromycin and prednisone. She denies any events overnight, reports that her shortness of breath is improving and she is close to baseline. At baseline she wears 3 L nasal cannula for respiratory support at home. Today during my assessment she was on 2 L nasal cannula without hypoxia, shortness of breath or tachypnea. Continue to endorse shortness of breath with ambulation. However, given her history of COPD and lung cancer this may be her baseline. - Constitutional Vitals: Temp Pulse Resp BP Pulse Ox 97.8 F 97 20 139/86 99 08/12/17 07:27 08/12/17 07:27 08/12/17 07:48 08/12/17 07:27 08/12/17 07:48 General appearance: Present: mild distress, A&O X 3, pleasant - Head Head exam: Present: atraumatic, normocephalic - Eye Eye exam: Present: PERRL, conjuntiva pink, sclera anicteric Pupils: Present: PERRL - Neck Neck exam general surgery: Present: supple, trachea midline. Absent: lymphadenopathy - Respiratory Respiratory exam: Present: CTAB, rales (Bilateral bases). Absent: accessory muscle use, chest wall tenderness, decreased breath sounds, respiratory distress , rhonchi, wheezes - Cardiovascular Cardiovascular exam: Present: RRR, +S1, +S2. Absent: diastolic murmur, gallop, rubs, systolic murmur - GI/Abdominal GI/Abdominal exam: Present: normal bowel sounds, soft, no peritoneal signs. Absent: distended, tenderness - Extremities Exam Extremities exam: Present: warm, radial pulses palpable and symmetrical. Absent : calf tenderness, cyanotic, pedal edema - Neurological Exam Neurological exam: Present: alert, oriented X3, no focal deficits. Absent: pronater drift, facial droop, speech deficit - Skin Skin exam: Present: dry, intact Internal Medicine: Result - Labs CBC & Chem 7: 08/12/17 00:18 08/12/17 00:18 Labs: Short CBC 08/11/17 08/12/17 Range/Units 19:28 00:18 WBC 14.4 H (4.3-11.1) K/mcL Hgb 8.0 L 9.2 L (11.5-15.4) g/dL Hct 25.9 L 28.8 L (35.3-44.9) % Plt Count 167 (140-400) K/mcL Neutrophils # 13.6 H (1.6-8.9) K/mcL BMP 08/12/17 00:18 Sodium 137 Potassium 3.9 Chloride 101 Carbon Dioxide 28 BUN 29 H Creatinine 0.62 Glucose 159 H Calcium 8.9 - ABG Interpretation ABG results: ABG ABG pH 7.49 pH Units (7.32-7.45) H 08/10/17 12:45 ABG pCO2 47 mmHg (35-45) H 08/10/17 12:45 ABG pO2 78 mmHg (85-104) L 08/10/17 12:45 ABG O2 Saturation 96 % (95-98) 08/10/17 12:45 PT/INR, D-dimer PT 15.2 Seconds (9.4-12.1) H 08/10/17 11:58 Consult Discharge Plan - Plan Referrals: Frank Barboza MD [Primary Care Provider] - 08/18/17 9:30 am
[2017-08-12] MEDS: Gabapentin 300 MG CAPSULE PO SCH (22:58)
[2017-08-12] MEDS: *HR* Morphine Sulfate SR (12 HR) 30 MG TABLET.ER PO SCH (22:58)
[2017-08-13] MEDS: Albuterol 2.5 MG/3 ML NEBULIZER IH SCH ×6 (00:01→20:44)
[2017-08-13] MEDS: MethylPREDNISolone 40 MG/ML VIAL IVP SCH ×3 (05:20→21:03)
[2017-08-13] MEDS: Cefepime HCl 2,000 MG in Water for inj. (sterile) 20 ML 20 ML IVP SCH (05:20)
[2017-08-13 06:58] LABS: Basophils % 0.2 %; Hematocrit 27.2 % (35.3-44.9); Hemoglobin 8.6 g/dL (11.5-15.4); Immature Granulocytes % 1.2 % (0-4); Lymphocytes # 0.2 K/mcL (0.6-4.6); Lymphocytes % 1.7 %; Mean Corpuscular HGB Conc 31.6 g/dL (31.6-35.5); Mean Corpuscular Hemoglobin 25.8 pg (28.0-33.3); Mean Corpuscular Volume 81.7 fL (83.0-100.0); Monocytes # 0.5 K/mcL (0.0-1.3); Monocytes % 3.7 %; Neutrophils # 12.3 K/mcL (1.6-8.9); Platelet Count 152 K/mcL (140-400); Red Blood Count 3.33 M/mcL (3.82-4.97); Red Cell Distribution Width 20.7 % (11.5-14.5); Segmented Neutrophils % 93.2 %
[2017-08-13 07:22] LABS: BUN/Creatinine Ratio 75 (6-26); Blood Urea Nitrogen 38 mg/dL (8-23); Calcium 8.7 mg/dL (8.6-10.3); Carbon Dioxide 26 mEq/L (23-29); Chloride 108 mEq/L (98-107); Glucose 137 mg/dL (70-105); Osmolality,Calculated 301 (280-300); Potassium 4.2 mEq/L (3.5-5.1); Sodium 140 mEq/L (136-145); eGFR For African Americans > 60 (> 60); eGFR For Non-African Americans > 60 (> 60)
[2017-08-13] MEDS: Budesonide/Formoterol 160/4.5 MDI IH SCH ×2 (07:36→20:44)
[2017-08-13] MEDS: Tiotropium 18 MCG inhalation IH SCH (07:37)
[2017-08-13] MEDS: Levofloxacin 750 MG/150 ML 750 MG/150 ML BAG IVPB SCH (08:57)
[2017-08-13] MEDS: Sucralfate 1 GM TABLET PO SCH ×3 (08:57→17:07)
[2017-08-13] MEDS: Cholecalciferol (D-3) 1,000 UNIT TABLET PO SCH (08:57)
[2017-08-13] MEDS: *HR* Morphine Sulfate SR (12 HR) 15 MG TABLET.ER PO SCH (08:57)
--- NOTE | 2017-08-13 11:01 | Internal Med Progress Note ---
Date of Encounter: 08/13/17 Time of Encounter: 10:59 - Assessment and plan (1) HCAP (healthcare-associated pneumonia) Current Visit: Yes Status: Acute Assessment and plan: Continuing to endorse nonproductive cough, bilateral crackles bilateral bases and scattered rhonchi. 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 Following with [facility], continuing to receive chemotherapy treatments, last chemotherapy was , 08/09/2017. Continue to treat for healthcare associated pneumonia. Has been receiving broad-spectrum coverage with vancomycin, Levaquin and ceftriaxone. The patient appears to have clinically improved overall. Shortness of breath is improved, she remains in dynamically stable and afebrile. Leukocytosis with no appreciable change in today's labs. De-escalate antibiotic therapy; discontinue vancomycin, cefepime, continue Levaquin Closely monitor patient for worsening of respiratory status. Continue Bronchodilators Continue IV steroids Respiratory support when necessary per nasal cannula currently on 2 L Continuous telemetry, SPO2 monitoring CBC D, BMP in the morning (2) Sepsis Current Visit: Yes Status: Resolved Assessment and plan: Resolved Qualifiers: Sepsis type: sepsis due to unspecified organism Qualified Code(s): A41.9 - Sepsis, unspecified organism (3) COPD (chronic obstructive pulmonary disease) Current Visit: Yes Status: Chronic Assessment and plan: History of COPD, Not in acute exacerbation, no wheezing noted upon auscultation. See assessment and planning above Qualifiers: COPD type: unspecified COPD Qualified Code(s): J44.9 - Chronic obstructive pulmonary disease, unspecified (4) Squamous cell carcinoma lung Current Visit: Yes Status: Chronic Assessment and plan: 08/13/17 Continuing to follow with oncology Last chemotherapy was this past Qualifiers: Laterality: right Qualified Code(s): C34.91 - Malignant neoplasm of unspecified part of right bronchus or lung (5) Anemia Current Visit: Yes Status: Acute Assessment and plan: Continues to have anemia , likely caused by chemotherapy. No obvious cause of bleeding, no active bleeding noted. She has received 1 unit of packed red cells during this study due to hemoglobin of 7.5, she was symptomatic at this time. Hemoglobin remained stable today and She remains hemodynamically stable. CBC in the morning Qualifiers: Anemia type: unspecified type Qualified Code(s): D64.9 - Anemia, unspecified (6) DNR (do not resuscitate) discussion Current Visit: Yes Status: Acute (7) DVT prophylaxis Current Visit: Yes Status: Acute Assessment and plan: EPCD's - Time Spent With Patient Total time spent is greater than 50% in coordination of care (as documented) at patient's floor/unit and/or counseling patient: Greater than 35 minutes - Subjective Interval history: Ms. 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 She failed treatment from her PCP with azithromycin and prednisone. She denies any events overnight, reports that her shortness of breath has improved and she is back to baseline At baseline she wears 3 L nasal cannula for respiratory support at home. Today during my assessment she was on 2 L nasal cannula without hypoxia, shortness of breath or tachypnea. Continue to endorse shortness of breath with ambulation. However, given her history of COPD and lung cancer this may be her baseline. Only additional complaints are pain with cough. Clinically, the patient appears to be doing much better. - Constitutional Vitals: Temp Pulse Resp BP Pulse Ox 97.6 F 97 18 146/85 99 08/13/17 06:59 08/13/17 06:59 08/13/17 07:37 08/13/17 06:59 08/13/17 09:05 General appearance: Present: mild distress, A&O X 3, pleasant - Head Head exam: Present: atraumatic, normocephalic - Eye Eye exam: Present: PERRL, conjuntiva pink, sclera anicteric Pupils: Present: PERRL - Neck Neck exam general surgery: Present: supple, trachea midline. Absent: lymphadenopathy - Respiratory Respiratory exam: Present: decreased breath sounds, CTAB, rales (Bilateral posterior bases), rhonchi (Scattered). Absent: accessory muscle use, chest wall tenderness, respiratory distress, wheezes, tachypnea - Cardiovascular Cardiovascular exam: Present: RRR, +S1, +S2. Absent: diastolic murmur, gallop, rubs, systolic murmur - GI/Abdominal GI/Abdominal exam: Present: normal bowel sounds, soft, no peritoneal signs. Absent: distended, tenderness - Extremities Exam Extremities exam: Present: warm, radial pulses palpable and symmetrical. Absent : calf tenderness, cyanotic, pedal edema - Neurological Exam Neurological exam: Present: CN II-XII intact, oriented X3, no focal deficits. Absent: pronater drift, facial droop, speech deficit - Skin Skin exam: Present: dry, intact Internal Medicine: Result - Labs CBC & Chem 7: 08/13/17 06:46 08/13/17 06:46 Labs: Short CBC 08/13/17 Range/Units 06:46 WBC 13.2 H (4.3-11.1) K/mcL Hgb 8.6 L (11.5-15.4) g/dL Hct 27.2 L (35.3-44.9) % Plt Count 152 (140-400) K/mcL Neutrophils # 12.3 H (1.6-8.9) K/mcL BMP 08/13/17 06:46 Sodium 140 Potassium 4.2 Chloride 108 H Carbon Dioxide 26 BUN 38 H Creatinine 0.51 L Glucose 137 H Calcium 8.7 - ABG Interpretation ABG results: ABG ABG pH 7.49 pH Units (7.32-7.45) H 08/10/17 12:45 ABG pCO2 47 mmHg (35-45) H 08/10/17 12:45 ABG pO2 78 mmHg (85-104) L 08/10/17 12:45 ABG O2 Saturation 96 % (95-98) 08/10/17 12:45 PT/INR, D-dimer PT 15.2 Seconds (9.4-12.1) H 08/10/17 11:58 - VTE Documentation of Mechanical Device: Intermittent pneumatic compression device Consult Discharge Plan - Plan Referrals: Frank Barboza MD [Primary Care Provider] - 08/18/17 9:30 am
[2017-08-13] MEDS: Gabapentin 300 MG CAPSULE PO SCH (21:03)
[2017-08-13] MEDS: *HR* Morphine Sulfate SR (12 HR) 30 MG TABLET.ER PO SCH (21:03)
[2017-08-14] MEDS: Albuterol 2.5 MG/3 ML NEBULIZER IH SCH ×3 (00:34→07:28)
[2017-08-14] MEDS: MethylPREDNISolone 40 MG/ML VIAL IVP SCH ×3 (06:00→22:05)
[2017-08-14] MEDS: Tiotropium 18 MCG inhalation IH SCH (07:28)
[2017-08-14] MEDS: Budesonide/Formoterol 160/4.5 MDI IH SCH ×2 (07:28→21:34)
[2017-08-14] MEDS: Sucralfate 1 GM TABLET PO SCH ×3 (08:01→16:34)
[2017-08-14] MEDS: Levofloxacin 750 MG/150 ML 750 MG/150 ML BAG IVPB SCH (08:01)
[2017-08-14] MEDS: Cholecalciferol (D-3) 1,000 UNIT TABLET PO SCH (08:02)
[2017-08-14] MEDS: *HR* Morphine Sulfate SR (12 HR) 15 MG TABLET.ER PO SCH (08:02)
[2017-08-14 10:17] LABS: Hematocrit 27.7 % (35.3-44.9); Hemoglobin 8.6 g/dL (11.5-15.4); Mean Corpuscular Hemoglobin 25.6 pg (28.0-33.3); Mean Corpuscular Volume 82.4 fL (83.0-100.0); Mean Platelet Volume 9.9 fL (9.4-12.4); Nucleated Red Blood Cells 0.2 /100 WBC (0); Platelet Count 145 K/mcL (140-400); Red Blood Count 3.36 M/mcL (3.82-4.97); Red Cell Distribution Width 21.1 % (11.5-14.5)
[2017-08-14 10:32] LABS: BUN/Creatinine Ratio 65 (6-26); Blood Urea Nitrogen 37 mg/dL (8-23); Calcium 8.9 mg/dL (8.6-10.3); Carbon Dioxide 27 mEq/L (23-29); Chloride 105 mEq/L (98-107); Glucose 176 mg/dL (70-105); Osmolality,Calculated 301 (280-300); Sodium 139 mEq/L (136-145); eGFR For African Americans > 60 (> 60); eGFR For Non-African Americans > 60 (> 60)
[2017-08-14 10:33] LABS: Lymphocytes # 0.2 K/mcL (0.6-4.6); Monocytes # 0.6 K/mcL (0.0-1.3); Neutrophils # 9.7 K/mcL (1.6-8.9); Platelet Estimate Normal (Normal)
--- NOTE | 2017-08-14 10:42 | Internal Med Progress Note ---
Date of Encounter: 08/14/17 Time of Encounter: 08:45 - Assessment and plan (1) HCAP (healthcare-associated pneumonia) Current Visit: Yes Status: Acute Assessment and plan: Being treated for HCAP Conically continuing to improve Shortness of breath only with activity Afebrile overnight, no leukocytosis per today's labs Continue bronchodilators Continue IV steroids Respiratory support when necessary per nasal cannula currently on 2 L Okay to discontinue telemetry CBC D, BMP in the morning Continue monotherapy with Levaquin Patient was offered discharged home today and is medically/conically stable for discharge. However she is refusing discharged today stating she feels like one more day would be more beneficial as she does not want to come back immediately after discharge because she did not stay long enough. (2) Sepsis Current Visit: Yes Status: Resolved Assessment and plan: Resolved Qualifiers: Sepsis type: sepsis due to unspecified organism Qualified Code(s): A41.9 - Sepsis, unspecified organism (3) COPD (chronic obstructive pulmonary disease) Current Visit: Yes Status: Chronic Assessment and plan: 08/14/17 Not in acute exacerbation, no wheezing noted upon auscultation. See assessment and planning above Qualifiers: COPD type: unspecified COPD Qualified Code(s): J44.9 - Chronic obstructive pulmonary disease, unspecified (4) Squamous cell carcinoma lung Current Visit: Yes Status: Chronic Assessment and plan: 08/13/17 Continuing to follow with oncology Last chemotherapy was this past Patient reports she is scheduled for next dose of chemotherapy this coming , 08/20/17 She will unlikely be inpatient at this time however, should she continue ( patient consider oncology consult to continue with chemotherapeutic regimen Most recent scans from 07/03/17 shows stable findings in the chest with radiation changes. Qualifiers: Laterality: right Qualified Code(s): C34.91 - Malignant neoplasm of unspecified part of right bronchus or lung (5) Anemia Current Visit: Yes Status: Acute Assessment and plan: Stable, likely caused by chemotherapy next Received 1 unit of PRBC throughout the stay due to hemoglobin of 7.5 and being symptomatic No obvious bleeding, hemodynamically stable CBC in the morning Qualifiers: Anemia type: unspecified type Qualified Code(s): D64.9 - Anemia, unspecified (6) DNR (do not resuscitate) discussion Current Visit: Yes Status: Acute (7) DVT prophylaxis Current Visit: Yes Status: Acute Assessment and plan: EPCD's - Time Spent With Patient Total time spent is greater than 50% in coordination of care (as documented) at patient's floor/unit and/or counseling patient: Greater than 35 minutes - Subjective Interval history: Ms. 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 She failed treatment from her PCP with azithromycin and prednisone. She denies any events overnight, reports that her shortness of breath has improved and she is back to baseline At baseline she wears 3 L nasal cannula for respiratory support at home. Patient seen and examined at bedside today. Remains on 2 L nasal cannula, no dyspnea at rest. Dyspnea with exertion. History of COPD and lung cancer, dyspnea with exertion may be her new baseline. Clinically, the patient is improving, WBC 10.5 today from 13.2, afebrile overnight, resting comfortably on 2 L nasal cannula without respiratory distress. - Constitutional Vitals: Temp Pulse Resp BP Pulse Ox 97.9 F 87 14 138/83 100 08/14/17 07:03 08/14/17 07:03 08/14/17 07:03 08/14/17 07:03 08/14/17 07:03 General appearance: Present: mild distress, A&O X 3, pleasant - Head Head exam: Present: atraumatic, normocephalic - Eye Eye exam: Present: PERRL, conjuntiva pink, sclera anicteric Pupils: Present: PERRL - Neck Neck exam general surgery: Present: supple, trachea midline. Absent: lymphadenopathy - Respiratory Respiratory exam: Present: decreased breath sounds, CTAB. Absent: accessory muscle use, rales, respiratory distress, rhonchi, wheezes, tachypnea - Cardiovascular Cardiovascular exam: Present: RRR, +S1, +S2. Absent: diastolic murmur, gallop, rubs, systolic murmur - GI/Abdominal GI/Abdominal exam: Present: normal bowel sounds, soft, no peritoneal signs. Absent: distended, tenderness - Extremities Exam Extremities exam: Present: warm, radial pulses palpable and symmetrical. Absent : calf tenderness, cyanotic, pedal edema - Neurological Exam Neurological exam: Present: CN II-XII intact, oriented X3, no focal deficits. Absent: pronater drift, facial droop, speech deficit - Skin Skin exam: Present: dry, intact Internal Medicine: Result - Labs CBC & Chem 7: 08/14/17 10:05 08/14/17 10:05 Labs: Short CBC 08/14/17 Range/Units 10:05 WBC 10.5 (4.3-11.1) K/mcL Hgb 8.6 L (11.5-15.4) g/dL Hct 27.7 L (35.3-44.9) % Plt Count 145 (140-400) K/mcL Neutrophils # 9.7 H (1.6-8.9) K/mcL BMP 08/14/17 10:05 Sodium 139 Potassium 4.0 Chloride 105 Carbon Dioxide 27 BUN 37 H Creatinine 0.57 L Glucose 176 H Calcium 8.9 - ABG Interpretation ABG results: ABG ABG pH 7.49 pH Units (7.32-7.45) H 08/10/17 12:45 ABG pCO2 47 mmHg (35-45) H 08/10/17 12:45 ABG pO2 78 mmHg (85-104) L 08/10/17 12:45 ABG O2 Saturation 96 % (95-98) 08/10/17 12:45 PT/INR, D-dimer PT 15.2 Seconds (9.4-12.1) H 08/10/17 11:58 - VTE Documentation of Mechanical Device: Intermittent pneumatic compression device Consult Discharge Plan - Plan Referrals: Frank Barboza MD [Primary Care Provider] - 08/18/17 9:30 am
[2017-08-14] MEDS: Levalbuterol Neb 1.25 MG/3 ML IH SCH ×2 (15:17→21:34)
[2017-08-14] MEDS: *HR* Morphine Sulfate SR (12 HR) 30 MG TABLET.ER PO SCH (22:05)
[2017-08-14] MEDS: Gabapentin 300 MG CAPSULE PO SCH (22:05)
[2017-08-15] MEDS: Levalbuterol Neb 1.25 MG/3 ML IH SCH ×4 (03:30→22:01)
[2017-08-15] MEDS: MethylPREDNISolone 40 MG/ML VIAL IVP SCH ×3 (05:39→20:43)
[2017-08-15 06:45] LABS: BUN/Creatinine Ratio 62 (6-26); Blood Urea Nitrogen 37 mg/dL (8-23); Calcium 8.9 mg/dL (8.6-10.3); Carbon Dioxide 27 mEq/L (23-29); Chloride 107 mEq/L (98-107); Glucose 124 mg/dL (70-105); Osmolality,Calculated 298 (280-300); Potassium 4.5 mEq/L (3.5-5.1); Sodium 139 mEq/L (136-145); eGFR For African Americans > 60 (> 60); eGFR For Non-African Americans > 60 (> 60)
[2017-08-15 07:01] LABS: Basophils % 0.3 %; Hematocrit 28.9 % (35.3-44.9); Immature Granulocytes % 2.8 % (0-4); Lymphocytes # 0.4 K/mcL (0.6-4.6); Lymphocytes % 3.4 %; Mean Corpuscular HGB Conc 31.1 g/dL (31.6-35.5); Mean Corpuscular Hemoglobin 25.9 pg (28.0-33.3); Mean Platelet Volume 10.3 fL (9.4-12.4); Monocytes # 0.5 K/mcL (0.0-1.3); Monocytes % 4.7 %; Neutrophils # 10.1 K/mcL (1.6-8.9); Nucleated Red Blood Cells 0.2 /100 WBC (0); Platelet Count 165 K/mcL (140-400); Red Blood Count 3.48 M/mcL (3.82-4.97); Red Cell Distribution Width 21.3 % (11.5-14.5); Segmented Neutrophils % 88.8 %
[2017-08-15] MEDS: *HR* Morphine Sulfate SR (12 HR) 15 MG TABLET.ER PO SCH (08:36)
[2017-08-15] MEDS: Cholecalciferol (D-3) 1,000 UNIT TABLET PO SCH (08:36)
[2017-08-15] MEDS: Sucralfate 1 GM TABLET PO SCH ×3 (08:36→17:20)
[2017-08-15] MEDS: Levofloxacin 750 MG/150 ML 750 MG/150 ML BAG IVPB SCH (08:36)
[2017-08-15] MEDS: Budesonide/Formoterol 160/4.5 MDI IH SCH ×2 (10:12→22:01)
[2017-08-15] MEDS: Tiotropium 18 MCG inhalation IH SCH (10:13)
--- NOTE | 2017-08-15 11:12 | Internal Med Progress Note ---
Date of Encounter: 08/15/17 Time of Encounter: 08:30 - Assessment and plan (1) HCAP (healthcare-associated pneumonia) Current Visit: Yes Status: Acute Assessment and plan: Being treated for HCAP Clinically she has remained the same overnight with the exception of some increased generalized weakness. From a respiratory standpoint the patient has remained stable and is continuing to improve. Shortness of breath only with activity and worse than days prior. Afebrile overnight, slight increase in WBC of 11.8 Continue bronchodilators Continue IV steroids Respiratory support when necessary per nasal cannula currently on 2 L Okay to discontinue telemetry CBC D, BMP in the morning Continue monotherapy with Levaquin Patient is stating that due to the increased weakness overnight she does not feel that she will be able to discharge today. She was started on monotherapy 2 days ago, given an increase in weakness overnight and a slight increase in leukocytosis the patient would benefit from an additional night stay for further monitoring. Plan is to discharge tomorrow barring any further decline overnight. (2) Sepsis Current Visit: Yes Status: Resolved Assessment and plan: Resolved Qualifiers: Sepsis type: sepsis due to unspecified organism Qualified Code(s): A41.9 - Sepsis, unspecified organism (3) COPD (chronic obstructive pulmonary disease) Current Visit: Yes Status: Chronic Assessment and plan: Not in acute exacerbation Qualifiers: COPD type: unspecified COPD Qualified Code(s): J44.9 - Chronic obstructive pulmonary disease, unspecified (4) Squamous cell carcinoma lung Current Visit: Yes Status: Chronic Assessment and plan: Continuing to follow with oncology Last chemotherapy was this past Patient reports she is scheduled for next dose of chemotherapy this coming , 08/20/17 She will unlikely be inpatient at this time however, should she continue ( patient consider oncology consult to continue with chemotherapeutic regimen Most recent scans from 07/03/17 shows stable findings in the chest with radiation changes. Qualifiers: Laterality: right Qualified Code(s): C34.91 - Malignant neoplasm of unspecified part of right bronchus or lung (5) Anemia Current Visit: Yes Status: Acute Assessment and plan: Stable, likely caused by chemotherapy next Received 1 unit of PRBC throughout the stay due to hemoglobin of 7.5 and being symptomatic No obvious bleeding, hemodynamically stable , hemoglobin of 9 this morning CBC in the morning Qualifiers: Anemia type: unspecified type Qualified Code(s): D64.9 - Anemia, unspecified (6) DNR (do not resuscitate) discussion Current Visit: Yes Status: Acute (7) DVT prophylaxis Current Visit: Yes Status: Acute Assessment and plan: EPCD's - Time Spent With Patient Total time spent is greater than 50% in coordination of care (as documented) at patient's floor/unit and/or counseling patient: Greater than 35 minutes - Subjective Interval history: Ms. 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 She failed treatment from her PCP with azithromycin and prednisone. She denies any events overnight, reports that her shortness of breath has improved and she is back to baseline At baseline she wears 3 L nasal cannula for respiratory support at home. Patient seen and examined at bedside today. Remains on 2 L nasal cannula, no dyspnea at rest. Dyspnea with exertion. History of COPD and lung cancer, dyspnea with exertion may be her new baseline. No noticeable improvement overnight. Patient states she feels about the same but is a little weaker than yesterday. She had a mild increase in WBC now at 11.8, has remained afebrile and is not hypoxic. Due to increasing weakness and increasing WBC and will monitor the patient for one more day before discharge barring any declining condition overnight the patient will likely discharge tomorrow. - Constitutional Vitals: Temp Pulse Resp BP Pulse Ox 97.8 F 79 15 152/95 98 08/15/17 07:26 08/15/17 07:26 08/15/17 10:12 08/15/17 07:26 08/15/17 10:12 General appearance: Present: mild distress, A&O X 3, pleasant - Head Head exam: Present: atraumatic, normocephalic - Eye Eye exam: Present: PERRL, conjuntiva pink, sclera anicteric Pupils: Present: PERRL - Neck Neck exam general surgery: Present: supple, trachea midline. Absent: lymphadenopathy - Respiratory Respiratory exam: Present: CTAB. Absent: accessory muscle use, rales, rhonchi, wheezes - Cardiovascular Cardiovascular exam: Present: RRR, +S1, +S2. Absent: diastolic murmur, gallop, rubs, systolic murmur - GI/Abdominal GI/Abdominal exam: Present: normal bowel sounds, soft, no peritoneal signs. Absent: distended, tenderness - Extremities Exam Extremities exam: Present: warm, radial pulses palpable and symmetrical. Absent : calf tenderness, cyanotic, pedal edema - Neurological Exam Neurological exam: Present: alert, CN II-XII intact, oriented X3, no focal deficits. Absent: pronater drift, facial droop, speech deficit - Skin Skin exam: Present: dry, intact Internal Medicine: Result - Labs CBC & Chem 7: 08/15/17 06:19 08/15/17 06:19 Labs: Short CBC 08/15/17 Range/Units 06:19 WBC 11.4 H (4.3-11.1) K/mcL Hgb 9.0 L (11.5-15.4) g/dL Hct 28.9 L (35.3-44.9) % Plt Count 165 (140-400) K/mcL Neutrophils # 10.1 H (1.6-8.9) K/mcL BMP 08/15/17 06:19 Sodium 139 Potassium 4.5 Chloride 107 Carbon Dioxide 27 BUN 37 H Creatinine 0.60 Glucose 124 H Calcium 8.9 - ABG Interpretation ABG results: ABG ABG pH 7.49 pH Units (7.32-7.45) H 08/10/17 12:45 ABG pCO2 47 mmHg (35-45) H 08/10/17 12:45 ABG pO2 78 mmHg (85-104) L 08/10/17 12:45 ABG O2 Saturation 96 % (95-98) 08/10/17 12:45 PT/INR, D-dimer PT 15.2 Seconds (9.4-12.1) H 08/10/17 11:58 - VTE Documentation of Mechanical Device: Intermittent pneumatic compression device Consult Discharge Plan - Plan Referrals: Frank Barboza MD [Primary Care Provider] - 08/18/17 9:30 am
[2017-08-15] MEDS ORDERED: Furosemide 20 MG TABLET PO PRN (12:35)
[2017-08-15] MEDS: Furosemide 20 MG TABLET PO SCH (13:23)
[2017-08-15] MEDS: Gabapentin 300 MG CAPSULE PO SCH (20:41)
[2017-08-15] MEDS: *HR* Morphine Sulfate SR (12 HR) 30 MG TABLET.ER PO SCH (20:42)
[2017-08-15] MEDS ORDERED: Furosemide 20 MG TABLET PO ONE (21:06)
[2017-08-15] MEDS: Ibuprofen 600 MG TABLET PO PRN (21:34)
[2017-08-16] MEDS: Levalbuterol Neb 1.25 MG/3 ML IH SCH ×2 (03:42→09:56)
[2017-08-16] MEDS: MethylPREDNISolone 40 MG/ML VIAL IVP SCH (05:08)
[2017-08-16 07:31] LABS: Basophils # 0.1 K/mcL (0.0-0.2); Basophils % 0.5 %; Eosinophils % 0.2 %; Immature Granulocytes % 2.5 % (0-4); Lymphocytes # 0.3 K/mcL (0.6-4.6); Lymphocytes % 2.4 %; Mean Corpuscular Hemoglobin 25.7 pg (28.0-33.3); Mean Corpuscular Volume 85.7 fL (83.0-100.0); Mean Platelet Volume 12.1 fL (9.4-12.4); Monocytes # 0.6 K/mcL (0.0-1.3); Monocytes % 5.3 %; Neutrophils # 9.7 K/mcL (1.6-8.9); Platelet Count 149 K/mcL (140-400); Red Cell Distribution Width 22.3 % (11.5-14.5); Segmented Neutrophils % 89.1 %
[2017-08-16 07:56] LABS: BUN/Creatinine Ratio 76 (6-26); Blood Urea Nitrogen 41 mg/dL (8-23); Calcium 8.7 mg/dL (8.6-10.3); Carbon Dioxide 27 mEq/L (23-29); Chloride 105 mEq/L (98-107); Glucose 139 mg/dL (70-105); Osmolality,Calculated 302 (280-300); Potassium 3.7 mEq/L (3.5-5.1); Sodium 140 mEq/L (136-145); eGFR For African Americans > 60 (> 60); eGFR For Non-African Americans > 60 (> 60)
[2017-08-16] MEDS: Sucralfate 1 GM TABLET PO SCH (09:17)
[2017-08-16] MEDS: Cholecalciferol (D-3) 1,000 UNIT TABLET PO SCH (09:17)
[2017-08-16] MEDS: *HR* Morphine Sulfate SR (12 HR) 15 MG TABLET.ER PO SCH (09:17)
[2017-08-16] MEDS: Furosemide 20 MG TABLET PO SCH (09:18)
[2017-08-16] MEDS: Levofloxacin 750 MG/150 ML 750 MG/150 ML BAG IVPB SCH (09:18)
[2017-08-16] MEDS: Budesonide/Formoterol 160/4.5 MDI IH SCH (09:56)
[2017-08-16] MEDS: Tiotropium 18 MCG inhalation IH SCH (09:56)
--- NOTE | 2017-08-16 10:15 | Discharge Summary ---
- NOTES TO OUTPATIENT PROVIDER Notes to Outpatient Provider: Follow-up with PCP in one week. Patient has some 2+ pitting edema or discharge. She has been advised to take an additional dose of Lasix in the evening for the next 3 days. She has been informed to see PCP sooner should swelling worsen or difficulty in breathing develops. Orders not resulted at time of discharge: Pending orders 08/17/17 04:00 BMP [Basic Metabolic Panel] AM 0400 Complete Blood Count [HEME] AM 0400 Date of Encounter: 08/16/17 Time of Encounter: 09:50 - Discharge Diagnosis (1) HCAP (healthcare-associated pneumonia) Priority: Primary Status: Acute Assessment and Plan: Being treated for HCAP Clinically she has remained the same overnight with the exception of some increased generalized weakness and some BLE 2+ extremity swelling. From a respiratory standpoint the patient has remained stable and is continuing to improve. Shortness of breath with activity is improving. Afebrile overnight, slight increase in WBC of 10.9 today Resume home bronchodilators Steroid milligrams daily 5 days at OR Respiratory support when necessary per nasal cannula currently on 3 L; wears home O2 Continue monotherapy with Levaquin 750 mg by mouth 4 more days (2) Sepsis Priority: Secondary Status: Resolved Assessment and Plan: Resolved Qualifiers: Sepsis type: sepsis due to unspecified organism Qualified Code(s): A41.9 - Sepsis, unspecified organism (3) COPD (chronic obstructive pulmonary disease) Priority: Secondary Status: Chronic Assessment and Plan: Not in acute exacerbation Qualifiers: COPD type: unspecified COPD Qualified Code(s): J44.9 - Chronic obstructive pulmonary disease, unspecified (4) Squamous cell carcinoma lung Priority: Secondary Status: Chronic Assessment and Plan: Continuing to follow with oncology Last chemotherapy was this past Patient reports she is scheduled for next dose of chemotherapy this coming , 08/20/17 She will unlikely be inpatient at this time however, should she continue ( patient consider oncology consult to continue with chemotherapeutic regimen Most recent scans from 07/03/17 shows stable findings in the chest with radiation changes. Qualifiers: Laterality: right Qualified Code(s): C34.91 - Malignant neoplasm of unspecified part of right bronchus or lung (5) Anemia Priority: Secondary Status: Acute Assessment and Plan: Stable, likely caused by chemotherapy. No obvious bleeding, hemodynamically stable , hemoglobin of 9 this morning Qualifiers: Anemia type: unspecified type Qualified Code(s): D64.9 - Anemia, unspecified (6) DNR (do not resuscitate) discussion Priority: Secondary Status: Acute (7) DVT prophylaxis Priority: Secondary Status: Acute Hospital course: Ms. Paul is a 77 year old female with COPD, chronic respiratory failure, squamous cell carcinoma of the right lung. Presented in severe distress with shortness of breath and cough. Was found to have pneumonia. During the hospital course she was treated for HCAP with broad-spectrum antibiotics, bronchodilators and IV steroids. Patient had an uncomplicated hospital course and steadily improved as the days progressed. She does have some bilateral lower extremity 2+ pitting edema. However, she is on Lasix at home. She will be sent home with 4 additional doses of Levaquin, and steroid burst for the next 5 days. Additionally, she has been instructed to increase her Lasix use from 20 mg daily to 20 mg twice a day continue to closely monitor swelling. She was instructed to see her PCP 1 week after discharge. Additionally, she was instructed to return to the ED if SOB returns. Also, the patient has a follow- up with her oncologist this coming week and additional dose of chemotherapy. She has been informed to discuss with her oncologist the fact that she was recently treated for HCAP. Clinically, the patient has improved. She is currently not short of breath and is back on baseline oxygen. She is medically safe for discharge. Discharge discussed with: patient, nurse - Time Spent with Patient Total time spent providing and/or coordinating discharge services: Less than 30 minutes - Discharge Medications Prescriptions: Levofloxacin [Levaquin] 750 mg PO DAILY #4 tablet predniSONE [Prednisone] 50 mg PO DAILY #5 tablet Home Medications: Cholecalciferol (Vitamin D3) [Vitamin D3] 1,000 unit PO DAILY 10/03/15 [History] Oxygen 3 l NS HS 10/03/15 [History] Albuterol Sulfate [Proair Hfa] 1 puff IH AD PRN 01/14/17 [History] Ondansetron HCl [Zofran] 4 mg PO Q8H PRN #60 tablet 03/25/17 [Rx] Prochlorperazine Maleate [Compazine] 10 mg PO Q6HR PRN #90 tablet 03/25/17 [Rx] Lidocaine/Prilocaine [Emla] 1 appl TP AD PRN #30 gm 04/24/17 [Rx] Gabapentin [Neurontin] 300 mg PO HS 30 Days #30 capsule 06/16/17 [Rx] Morphine Sulfate [Arymo ER] 30 mg PO QPM 30 Days #30 tab.po.er 07/14/17 [Rx] ALPRAZolam [Xanax 0.25 MG Tablet] 0.25 mg PO BID PRN 30 Days #60 tablet [Rx] Dexamethasone [Decadron] 4 mg PO BID PRN #42 tab 07/22/17 [Rx] Furosemide [Lasix] 20 mg PO DAILY #30 tablet 07/22/17 [Rx] Potassium Chloride 10 meq PO DAILY #30 tab.er.prt 07/22/17 [Rx] Simvastatin [Zocor] 20 mg PO HS #30 tablet 07/22/17 [Rx] Sucralfate [Carafate] 1 gm PO TID #90 tablet 07/22/17 [Rx] Omeprazole [PriLOSEC] 40 mg PO DAILY PRN 07/31/17 [History] Albuterol Neb [Proventil Neb] 2.5 mg IH [id number] inhsol 08/02/17 [Rx] Budesonide/Formoterol 160/4.5 [Symbicort 160/4.5] 2 puff IH BIDR 30 Days #1 hfa.aer.ad 08/02/17 [Rx] Tiotropium [Spiriva] 18 mcg IH 0700 30 Days #30 capsule 08/02/17 [Rx] Morphine Immed Rel [Morphine Sulfate] 15 mg PO QAM 08/10/17 [History] Furosemide [Lasix] 20 mg PO DAILY tablet 08/16/17 [Rx] Levofloxacin [Levaquin] 750 mg PO DAILY #4 tablet 08/16/17 [Rx] predniSONE [Prednisone] 50 mg PO DAILY #5 tablet 08/16/17 [Rx] Allergies/Adverse Reactions: 3 Allergy/AdvReac Type Severity Reaction Status Date / Time ampicillin Allergy Hives Verified 08/10/17 12:46 diltiazem [From Cardizem] Allergy Hives Verified 08/10/17 12:46 aspirin AdvReac Nausea Verified 08/10/17 12:46 Oxycodone [From Percocet] AdvReac Nausea Verified 08/10/17 12:46 Date of admission: 08/10/17 15:34 Primary care physician: Frank Barboza MD Consults: 08/10/17 16:03 Consult to Student Life Dean [CONS] Routine Reason for SW Consult: discharge Discharging clinician: Obinna Quiroz Anticipated date of discharge: 08/16/17 - Constitutional Vitals: Temp Pulse Resp BP Pulse Ox 98.2 F 89 16 133/83 100 08/16/17 06:46 08/16/17 06:46 08/16/17 06:46 08/16/17 06:46 08/16/17 06:46 General appearance: Present: mild distress, A&O X 3, pleasant - Head Head exam: Present: atraumatic, normocephalic - Eye Eye exam: Present: PERRL, conjuntiva pink, sclera anicteric Pupils: Present: PERRL - Neck Neck exam general surgery: Present: supple, trachea midline. Absent: lymphadenopathy - Respiratory Respiratory exam: Present: CTAB. Absent: accessory muscle use, rales, rhonchi, wheezes - Cardiovascular Cardiovascular exam: Present: RRR, +S1, +S2. Absent: diastolic murmur, gallop, rubs, systolic murmur - GI/Abdominal GI/Abdominal exam: Present: normal bowel sounds, soft, no peritoneal signs. Absent: distended, tenderness - Extremities Exam Extremities exam: Present: pedal edema (2+ pitting), warm, radial pulses palpable and symmetrical. Absent: calf tenderness, cyanotic - Expanded Lower Extremities Exam Lower Leg exam: Present: swelling (2+ pitting) - Neurological Exam Neurological exam: Present: CN II-XII intact, oriented X3, no focal deficits. Absent: pronater drift, facial droop, speech deficit - Skin Skin exam: Present: dry, intact - Patient Status Disposition: Home, Self-Care Condition: Fair Overall status at discharge: patient is progressing back to baseline - Discharge Instructions Follow Up With: Frank Barboza MD [Primary Care Provider] - 08/18/17 9:30 am - VTE Documentation of Mechanical Device: Intermittent pneumatic compression device
[2017-08-16 11:39] VITALS: BP 143/84
[2017-08-16] MEDS ORDERED: Aminoglycoside Consult 1 EACH MC ONE (14:01)
== END 2017-08-16 14:02 | disposition home or self-care (01) | DRG 871 ==
LOC: EMEROO 11:44 → 3BNU 11:44
PROVIDERS: ADMIT Hospitalist; ATTEND Hospitalist